=== PATIENT | female | born 1975 | race Caucasian/White ===

== ENCOUNTER 2019-11-06 09:45 | Outpatient (CLI) | payer BC, SELFPAY ==
--- NOTE | ~2019-11-06 | XR_ITS ---
EXAMINATION: XR chest 2V DATE: 11/06/2019 10:03 INDICATION: One month of cough without fever. TECHNIQUE: PA and lateral views of the chest were obtained. COMPARISON: Chest radiograph dated 05/10/2014 FINDINGS: The lungs remain clear with no focal airspace opacities, pulmonary edema, pleural effusion or pneumot horax. The cardiomediastinal silhouette is normal. Mild thoracic spondylosis. IMPRESSION: 1. No acute cardiopulmonary disease. Reviewed, dictated and finalized at location A.
== END 2019-11-06 09:46 | disposition home or self-care (01) ==
LOC: ANHIMG 09:49
PROVIDERS: PCP Internal Medicine; Visit Provider Nurse Practitioner
DX: R05 Cough (principal)
CPT/HCPCS: 71046

== ENCOUNTER → 2020-07-11 15:25 | Outpatient (CLI) | payer BC, SELFPAY ==
--- NOTE | ~2020-07-11 | MM_ITS ---
EXAMINATION: MM screening [facility] BI w thai HISTORY: Screening mammogram TECHNIQUE: Craniocaudal and mediolateral oblique 3-D tomosynthesis images were obtained and synthetic 2-D images were generated. CAD analysis was submitted and interpreted. COMPARISON: 12/18/2018, 11/20/2017, 09/06/2016 bilateral digital screening mammogram examinations BREAST PARENCHYMAL COMPOSITION: The breasts are heterogeneously dense, which may obscure small masses . FINDINGS: There is no evidence of suspicious mass, calcification, or architectural distortion to sugg est malignancy in either breast. There has been no suspicious interval change. IMPRESSION: 1. No mammographic evidence of malignancy. 2. Recommend routine screening mammography in one year. BI-RADS Category 1: Negative Reviewed, dictated and finalized at location A. CE CLINICIAN
== END ==
PROVIDERS: PCP Internal Medicine; Visit Provider Obstetrics & Gynecology
DX: Z12.31 Encounter for screening mammogram for malignant neoplasm of breast (principal)
CPT/HCPCS: 77063; 77067

== ENCOUNTER 2021-01-13 13:36 | Emergency (ER) | payer BC, SELFPAY ==
--- NOTE | ~2021-01-13 | XR_ITS ---
EXAMINATION: XR sternum min 2V DATE: 01/13/2021 14:11 INDICATION: Chest injury. TECHNIQUE: 2 views of the sternum were obtained. COMPARISON: Chest 2 views 11/06/2019 FINDINGS: Bone alignment is normal. No fracture. IMPRESSION: 1. No fracture. Reviewed, dictated and finalized at location A. IMPRESSION: 1. No fracture.
--- NOTE | ~2021-01-13 | XR_ITS ---
EXAMINATION: XR scapula RT DATE: 01/13/2021 14:11 INDICATION: Chest injury. TECHNIQUE: 2 views of right scapula were obtained. COMPARISON: None. FINDINGS: Bone alignment is normal. No fracture. There is mild osteoarthritis of acromioclavicular jennie int. IMPRESSION: 1. No fracture. Reviewed, dictated and finalized at location A. IMPRESSION: 1. No fracture.
[2021-01-13 13:40] VITALS: BP 109/72; PULSE 92; RESP 16; TEMP 36.9; O2SAT 99
[2021-01-13] MEDS: TETANUS,DIPHTHERIA,AC PERTUSSIS ADULT (0.5 ML) BOOSTRIX IM (14:08)
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
== END 2021-01-13 14:40 | disposition home or self-care (01) ==
PROVIDERS: Emergency Provider Nurse Practitioner; PCP Internal Medicine
DX: S00.511A Abrasion of lip, initial encounter (principal); S40.211A Abrasion of right shoulder, initial encounter; S80.811A Abrasion, right lower leg, initial encounter; V00.831A Fall from motorized mobility scooter, initial encounter; S29.9XXA Unspecified injury of thorax, initial encounter; S49.91XA Unspecified injury of right shoulder and upper arm, initial encounter; Z23 Encounter for immunization; Z87.891 Personal history of nicotine dependence; F41.9 Anxiety disorder, unspecified; F32.9 Major depressive disorder, single episode, unspecified; I10 Essential (primary) hypertension
CPT/HCPCS: 71120; 73010; 90471; 90715; 99213; G0463

== ENCOUNTER → 2021-02-17 15:19 | Outpatient (CLI) | payer BC, SELFPAY ==
--- NOTE | ~2021-02-17 | US_ITS ---
EXAMINATION: US soft tissue chest EXAM DATE: 02/17/2021 15:41 INDICATION: R22.9 - Localized swelling, mass and lump, unspecified. TECHNIQUE: Multiple grayscale and Doppler images of the right parasternal palpable abnormality were o btained (by a technologist who performed the scan) and subsequently reviewed. Correlation is made to sternal x-ray 01/13/2021. FINDINGS: Scanning in the area of concern demonstrated normal appearing subcutaneous fat, several ribs and unre markable intercostal muscles between them. No sonographic abnormality was identified. IMPRESSION: Unremarkable ultrasound exam. Reviewed, dictated and finalized at location B.
== END ==
PROVIDERS: PCP Nurse Practitioner; Visit Provider Nurse Practitioner
DX: R22.9 Localized swelling, mass and lump, unspecified (principal)
CPT/HCPCS: 76604

== ENCOUNTER → 2022-01-17 11:34 | Outpatient (CLI) | payer BC, SELFPAY ==
--- NOTE | ~2022-01-17 | MM_ITS ---
EXAMINATION: MM screening [facility] BI w thai HISTORY: Screening mammogram TECHNIQUE: Craniocaudal and mediolateral oblique 3-D tomosynthesis images were obtained and synthetic 2-D images were generated. CAD analysis was submitted and interpreted. COMPARISON: 07/11/2020, 12/18/2018, 11/20/2017 BREAST PARENCHYMAL COMPOSITION: The breasts are heterogeneously dense, which may obscure small masses . FINDINGS: There is no suspicious mass, calcification, or architectural distortion to suggest malignan cy in either breast. There has been no suspicious interval change. IMPRESSION: 1. No mammographic evidence of malignancy. 2. Recommend routine screening mammography in one year. BI-RADS Category 1: Negative Reviewed, dictated and finalized at location A.
== END ==
PROVIDERS: PCP Nurse Practitioner Family; Visit Provider Obstetrics & Gynecology
DX: Z12.31 Encounter for screening mammogram for malignant neoplasm of breast (principal)
CPT/HCPCS: 77063; 77067

== ENCOUNTER 2023-05-23 19:15 | Emergency (ER) | payer OTHER, SELFPAY ==
--- NOTE | ~2023-05-23 | XR_ITS ---
EXAMINATION: XR chest 2V 05/23/2023 19:56 INDICATION: Chest pain PROCEDURE: 2 view chest COMPARISON: 11/06/2019 FINDINGS: The lungs are clear. The cardiomediastinal silhouette is within normal limits. There are no pleural effusions. There is no pneumothorax suspected. There are healed right upper rib fracture s. IMPRESSION: 1: NO ACUTE CARDIOPULMONARY DISEASE. Reviewed, dictated and finalized at location A.
--- NOTE | 2023-05-23 19:16 | ECG_ITS ---
Measurements Intervals [place] Rate: 84 P: 28 ME: 162 QRS: -22 QRSD: 85 T: 43 QT: 340 QTc: 404 Interpretive Statements SINUS RHYTHM POOR R-WAVE PROGRESSION LEFTWARD AXIS ABNORMAL ECG NO PREVIOUS ECG AVAILABLE FOR COMPARISON Electronically Signed On 05-24-2023 7:26:27 CDT by Candelario Oliva M.D.
[2023-05-23 19:20] VITALS: BP 121/88; PULSE 87; RESP 16; TEMP 37; O2SAT 98
[2023-05-23 20:11] LABS: Basophils Percent Auto 0.5 % (0.2-1.2); Eosinophils Absolute Auto 0.3 K/mm3 (0-0.3); Eosinophils Percent Auto 3.5 % (0-4.4); Hematocrit 31.9 % (37.0-47.0); Hemoglobin 10.6 g/dL (12.0-15.0); Immature Granulocyte Absolute 0.04 K/mm3 (0.00-0.031); Immature Granulocyte Percent A 0.5 % (0-0.5); Lymphocytes Absolute Auto 1.83 K/mm3 (0.9-3.2); Lymphocytes Percent Auto 22.3 % (18.3-44.2); Mean Corpuscular HGB Conc 33.2 g/dl (32-36); Mean Corpuscular Hemoglobin 30.2 pg (26-34); Mean Corpuscular Volume 90.9 fl (80-100); Mean Platelet Volume 10.3 fl (7.4-10.4); Monocytes Absolute Auto 0.6 K/mm3 (0.1-0.6); Monocytes Percent Auto 6.8 % (2.6-8.5); Neutrophils Absolute Auto 5.5 K/mm3 (1.3-6.7); Neutrophils Percent Auto 66.4 % (45.5-73.1); Platelet Count Result 281 k/mm3 (150-375); Red Blood Count 3.51 M/mm3 (4.2-5.4); Red Cell Distribution Width 13.2 % (11.5-14.5); White Blood Count 8.2 K/mm3 (4.5-10.0)
[2023-05-23 20:20] LABS: Alanine Aminotransferase 20 U/L (6-35); Alkaline Phosphatase 87 U/L (38-126); Anion Gap 6 mmol/L (8-16); Aspartate Amino Transferase 25 U/L (14-36); Bilirubin,Total 0.3 mg/dL (0.2-1.3); Blood Urea Nitrogen 16 mg/dL (7-17); Calcium 8.7 mg/dL (8.4-10.2); Carbon Dioxide 29 mmol/L (22-30); Chloride 103 mmol/L (98-107); Estimated CRCL calculation 92 ml/min; Estimated Glomerular Filt Rate > 60; Glucose 122 mg/dL (65-110); Lipase 79 U/L (23-300); Potassium 3.9 mmol/L (3.4-5.0); Sodium 138 mmol/L (137-145)
[2023-05-23 20:21] LABS: Prothrombin Time 13.7 Seconds (11.1-14.7)
[2023-05-23 20:22] LABS: Partial Thromboplastin Time 26.6 SECONDS (22.3-36.8)
[2023-05-23 20:32] LABS: Troponin I < 0.012 ng/mL (0.000-0.034)
[2023-05-23 23:38] VITALS: BP 131/95; PULSE 65; RESP 18; O2SAT 99
[2023-05-24 02:18] LABS: Troponin I < 0.012 ng/mL (0.000-0.034)
--- NOTE | 2023-05-24 02:21 | ED.GENADULT ---
HPI - General Adult General Chief complaint: Chest Pain Stated complaint: chest pain Time Seen by Provider: 05/24/23 01:28 History of Present Illness HPI narrative: Patient is a 48-year-old female who presents the emergency department with chief complaint of chest pain and dizziness. Patient reports this afternoon around 3 PM he started having a bowel movement and then felt dizzy got diaphoretic and had discomfort in her chest. Patient states she talked her primary care provider regarding having the emergency department for evaluation patient states she felt a little better decided to wait and then came to the emergency department after she had some more discomfort in her chest. Patient states her pain is improved significantly and now just has very minimal discomfort in her chest. Related Data Home Medications Medication Instructions Recorded Confirmed multivitamin 1 tablet PO DAILY 08/03/19 07/02/22 brexpiprazole 3 mg tablet (Rexulti) 3 mg PO DAILY 07/02/22 07/02/22 cholecalciferol (vitamin D3) 1,250 1,250 mcg PO WEEKLY 07/02/22 07/02/22 mcg (50,000 unit) capsule Allergies Allergy/AdvReac Type Severity Reaction Status Date / Time Penicillins Allergy Unknown Unknown Verified 07/02/22 11:12 Review of Systems Review of Systems: A 10 system review of systems was completed on the patient and is negative except for what is stated in the HPI. Nursing and ancillary documentation was reviewed. PMFSH Past Medical History Medical History Alcohol abuse Anxiety Depression Hematochezia Hypertension Surgical History Surgical History History of endometrial ablation Hx of foot surgery Right foot Hx of tubal ligation Family History Family History Father Family history of blood dyscrasia Hypertension Hyperlipidemia FH: prostate cancer Mother Hypertension Hyperthyroidism Social History Social History Smoking status: Former smoker Second hand tobacco smoke exposure: No Smoking end date: 08/12/02 Alcohol intake: current Alcohol use details: Pt drinks bi-weekly. Exam Narrative: GENERAL: Well-appearing, well-nourished, and in no acute distress. HEAD: Normocephalic, atraumatic. EYES: PERRLA and EOMI. ENT: Nares clear, no rhinorrhea or epistaxis. Mucous membranes moist. NECK: Supple. CHEST: Clear to auscultation. No respiratory distress. HEART: Regular rate and rhythm. No murmur heard. Normal peripheral pulses. ABDOMEN: Soft, nontender, nondistended, normal active bowel sounds. EXTREMITIES: Normal range of motion. No edema. SKIN: Warm, dry, no rash. NEURO: No focal deficits. Alert and oriented x3. PSYCH: Normal mood and affect. Course Course Emergency Course: Differential diagnose includes ACS, atypical chest pain, EKG normal sinus rhythm of [address] or ST depression Chest x-ray showed no focal infiltrate Laboratory studies were obtained CBC was within normal limits CMP was within normal limits 0-hour and repeat troponin were negative Vital Signs Vital signs: Vital Signs Temperature 37.0 C 05/23/23 19:20 Pulse Rate 87 05/23/23 19:20 Respiratory Rate 16 05/23/23 19:20 Blood Pressure 121/88 05/23/23 19:20 Pulse Oximetry 98 05/23/23 19:20 Oxygen Delivery Room Air 05/23/23 19:20 Temperature 37.0 C 05/23/23 19:20 Pulse Rate 65 05/23/23 23:38 Respiratory Rate 18 05/23/23 23:38 Blood Pressure 131/95 H 05/23/23 23:38 Pulse Oximetry 99 05/23/23 23:38 Oxygen Delivery Room Air 05/23/23 19:20 Medical Decision Making [facility] Narrative Medical decision making narrative: Differential diagnosis ACS, atypical chest pain, chest wall pain, Laboratory studies remain elevated
[2023-05-24 03:51] VITALS: BP 135/79; PULSE 63; RESP 15; O2SAT 100
== END 2023-05-24 03:52 | disposition home or self-care (01) ==
PROVIDERS: Emergency Provider Emergency Medicine; PCP Nurse Practitioner Family
DX: R07.89 Other chest pain (principal); I10 Essential (primary) hypertension; F41.9 Anxiety disorder, unspecified; F32.A Depression, unspecified; Z87.891 Personal history of nicotine dependence; R94.31 Abnormal electrocardiogram [ECG] [EKG]
CPT/HCPCS: 36415; 71046; 80053; 83690; 84484; 85025; 85610; 85730; 93005; 99284

== ENCOUNTER 2023-11-20 15:35 | Outpatient (CLI) | payer OTHER, SELFPAY ==
--- NOTE | ~2023-11-20 | XR_ITS ---
XR chest 2V 11/20/2023 15:43 Indication: Cough for 2 weeks Procedure: 2 view chest Comparison: No prior studies for comparison. Findings: Heart size normal. No focal air space disease, pulmonary edema, pleural effusion or suspect ed pneumothorax. There are healed right fourth, fifth and sixth rib fractures. Impression: 1: No acute cardiopulmonary disease. Reviewed, dictated and finalized at location A. Impression: 1: No acute cardiopulmonary disease.
== END 2023-11-20 15:36 ==
PROVIDERS: PCP Physician Assistant; Visit Provider Physician Assistant
DX: R05.9 Cough, unspecified (principal)
CPT/HCPCS: 71046

== ENCOUNTER 2024-02-17 08:25 | Outpatient (CLI) | payer BC, SELFPAY ==
--- NOTE | 2024-02-17 13:24 | WPDPFTINT ---
PFT Procedure Performed PFT Procedure Performed Spirometry with Pre/Post Bronchodilator Plethysmography (Lung Vol) Diffusing Cap (DLCO) Flow Vol Loop PFT Interpretation This is a pulmonary function test with pre and post-bronchodilator spirometry, plethysmography and diffusing capacity. The test was performed and results interpreted in accordance with the 2019 and 2005 ATS/ERS Task Force guidelines respectively using the Global Lung Function Initiative-2012 reference equations. Patient demonstrated good effort and cooperation. Reproducibility criteria were met. The quality of the pre bronchodilator spirometry maneuver was Grade B and post bronchodilator spirometry maneuver was Grade A. Findings: Spirometry: the contour of the inspiratory and expiratory flow tracing demonstrate a sawtooth pattern. Otherwise the contour the inspiratory and expiratory flow tracing are normal. The pre bronchodilator FVC is 3.31 L, 93% predicted. The pre bronchodilator FEV1 is 2.62 L, 92% predicted. The FEV1: FVC ratio 79%. The post bronchodilator FVC is 3.79 L, representing a 14% increase. The post bronchodilator FEV1 is 2.94 L, representing a 13% increase. The post bronchodilator FEV1: FVC ratio 78%. Plethysmography: The total lung capacity is 3.86 L, 74% predicted. The functional residual capacity is 1.26 L, 43% predicted. The residual volume is 0.54 L, 30% predicted. Diffusing capacity: The diffusing capacity unadjusted for hemoglobin and carboxyhemoglobin is 18.7, 81% predicted. The diffusing capacity adjusted for alveolar volume is 3.74, 82% predicted. Impression: The contour the expiratory flow tracing demonstrates a reproducible oscillating or sawtooth pattern. This is usually generated by air flow disturbances in the upper airway are from tremors of the respiratory muscles. This has been associated with sleep apnea, obesity, snorers without obstructive sleep apnea, upper airway injury, upper airway stenosis, tracheobronchomalacia, neuromuscular disorders with bulbar involvement, burn injury of the upper airway, diaphragmatic myoclonus, and herpes zoster of abdominal muscles. The contour the inspiratory flow tracing demonstrates a reproducible oscillating or sawtooth pattern. This has been associated with upper airway obstruction and upper airway collapsibility. There is a mild restrictive ventilatory abnormality with a normal FEV1. The spirometry is normal without evidence of an obstructive abnormality. There is significant improvement after inhaling a single dose of albuterol. The diffusing capacity is normal.
== END 2024-02-17 08:26 | disposition home or self-care (01) ==
LOC: ANHPFT 08:29
PROVIDERS: PCP Physician Assistant; Visit Provider Nurse Practitioner Family
DX: R06.00 Dyspnea, unspecified (principal); R94.2 Abnormal results of pulmonary function studies
CPT/HCPCS: 94060; 94726; 94729

== ENCOUNTER 2024-08-02 09:17 | Emergency (ER) | payer BC, SELFPAY ==
--- NOTE | ~2024-08-02 | XR_ITS ---
EXAMINATION: XR chest 2V DATE: 08/02/2024 10:42 INDICATION: Cough. TECHNIQUE: Frontal and lateral views of the chest were obtained. COMPARISON: Chest 2 views 11/20/2023 FINDINGS: There is no pneumonia, pleural effusion, or pneumothorax. The heart size is normal. There a re old healed right rib fractures. IMPRESSION: 1. No acute cardiopulmonary disease. Reviewed, dictated and finalized at location A. OOER
[2024-08-02 09:42] VITALS: BP 104/85; PULSE 84; RESP 16; TEMP 36.5; O2SAT 100
--- NOTE | 2024-08-02 10:31 | ED_ITS ---
HPI - General Adult General Chief complaint: Upper Respiratory Infection Stated complaint: Cough Source: patient Mode of arrival: ambulatory Limitations: no limitations History of Present Illness HPI narrative: Patient presents for evaluation of sick symptoms. Her primary concern is a cough that she has had for several weeks. She called primary care provider 6 days ago was started on cefdinir and prednisone. She finished her prednisone two days ago and is almost done with cefdinir. She had a fever. She also reports SOB and feels run down . No nausea, vomiting or diarrhea. 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 She has an underlying history of asthma. Related Data Home Medications ?Medication ?Instructions ?Recorded ?Confirmed ?Last Taken ?Type multivitamin 1 tablet PO DAILY 08/03/19 02/06/24 Unknown History bupropion HCl 300 mg 24 hr tablet, 300 mg PO DAILY 02/06/24 02/06/24 Unknown History extended release meloxicam 15 mg tablet 15 mg PO DAILY PRN 02/06/24 02/06/24 Unknown History azelastine 137 mcg (0.1 %) nasal intranasal 08/02/24 Unknown History spray bupropion HCl 150 mg 24 hr tablet, mg PO 08/02/24 Unknown History extended release cefdinir 300 mg capsule mg 08/02/24 Unknown History prednisone 20 mg tablet mg 08/02/24 Unknown History rosuvastatin 10 mg tablet mg 08/02/24 Unknown History tirzepatide 2.5 mg/0.5 mL mg subcut 08/02/24 Unknown History subcutaneous pen injector (Mounjaro) tirzepatide 5 mg/0.5 mL mg subcut 08/02/24 Unknown History subcutaneous pen injector (Mounjaro) Allergies Allergy/AdvReac Type Severity Reaction Status Date / Time Penicillins Allergy Unknown Unknown Verified 08/02/24 09:50 Review of Systems Review of Systems: CONSTITUTIONAL: Reports recent fever and feeling run down , none currently. Denies chills, or sweats. EYES: Denies visual changes, redness, or discharge. ENT: Denies rhinorrhea, congestion, sore throat, or otalgia. CARDIOVASCULAR: Denies chest pain, palpitations, or edema. RESPIRATORY: Reports cough and SOB. GASTROINTESTINAL: Denies abdominal pain, nausea, vomiting, or diarrhea. GENITOURINARY: Denies dysuria or hematuria. SKIN: Denies rash or itching. MUSCULOSKELETAL: Denies back pain, joint pain, or myalgia. NEUROLOGIC: Denies headache, numbness, dizziness, or weakness. PSYCHIATRIC: Denies anxiety or depression. [facility] Past Medical History Medical History Anxiety Alcohol abuse Hypertension Depression Hematochezia Surgical History Surgical History History of endometrial ablation Hx of tubal ligation Hx of foot surgery Right foot Family History Family History Father Family history of blood dyscrasia Hypertension Hyperlipidemia FH: prostate cancer Mother Hypertension Hyperthyroidism Social History Social History Smoking packs per day: 1 Smoking cigarettes per day: 20.0 Years smoked: 14 Smoking pack-years: 14.00 Smoking status: Former smoker Second hand tobacco smoke exposure: No Smoking end date: 08/12/02 Alcohol intake: current Alcohol use details: Pt drinks bi-weekly. 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 HEAD: Normocephalic, atraumatic. EYES: PERRLA and EOMI. ENT: Nares clear, no rhinorrhea or epistaxis. Mucous membranes moist. Oropharynx without tonsillar hypertrophy exudate or other lesions. Bilateral TMs pearly schwab nonbulging NECK: Supple. No adenopathy or masses. No carotid bruits or JVD CHEST: Clear to auscultation. No respiratory distress. No wheezes rales or rhonchi HEART: Regular rate and rhythm. No murmur heard. Normal peripheral pulses. ABDOMEN: Soft, nontender, nondistended, normal active bowel sounds. EXTREMITIES: Normal range of motion. No edema. SKIN: Warm, dry, no rash. NEURO: No focal deficits. Alert and oriented x3. PSYCH: Normal mood and affect. Course Course Emergency Course: This is a 49-year-old female who presented for evaluation of a cough for several weeks. Symptoms not improving with cefdinir. Although her chest x-ray was negative, clinically concerned she has pneumonia. Will add azithromycin. Finished cefdinir. Increase hydration. Pomi-oic-[id number] agents for symptom management. Follow up with primary provider. Go to the ER for worsening symptoms. Patient in agreement plan of care. Level of Care: Express Care Visit Vital Signs Vital signs: Vital Signs Oxygen Delivery Room Air 08/02/24 09:40 Temperature 36.5 C 08/02/24 09:42 Pulse Rate 84 08/02/24 09:42 Respiratory Rate 16 08/02/24 09:42 Blood Pressure 104/85 08/02/24 09:42 Pulse Oximetry 100 08/02/24 09:42 Oxygen Delivery Room Air 08/02/24 09:40 Medical Decision Making Vital Signs Vital Signs: Vital Signs Oxygen Delivery Room Air 08/02/24 09:40 Temperature 36.5 C 08/02/24 09:42 Pulse Rate 84 08/02/24 09:42 Respiratory Rate 16 08/02/24 09:42 Blood Pressure 104/85 08/02/24 09:42 Pulse Oximetry 100 08/02/24 09:42 Oxygen Delivery Room Air 08/02/24 09:40 Imaging Data Radiologist's impression: EXAMINATION: XR chest 2V DATE: 08/02/2024 10:42 INDICATION: Cough. TECHNIQUE: Frontal and lateral views of the chest were obtained. COMPARISON: Chest 2 views 11/20/2023 FINDINGS: There is no pneumonia, pleural effusion, or pneumothorax. The heart size is normal. There are old healed right rib fractures. IMPRESSION: 1. No acute cardiopulmonary disease Discharge Plan Discharge Clinical Impression: Community acquired pneumonia Patient Disposition: Home, Self-Care Condition: Stable Instructions: Antibiotic Form, Community Acquired Pneumonia (DC) Additional Instructions: Please complete course of cefdinir Start azithromycin and take as directed Patient Language: Jamaican Prescriptions: New azithromycin 250 mg tablet See Rx Instructions .ROUTE .COMPLEX Qty: 6 0RF Rx Instructions: For 250 mg dose pack: take 500 mg today (day 1), then 250 mg for 4 days (days 2-5) No Action prednisone 20 mg tablet azelastine 137 mcg (0.1 %) spray,non-aerosol INTRANASAL cefdinir 300 mg capsule rosuvastatin 10 mg tablet bupropion HCl 150 mg tablet extended release 24 hr PO Mounjaro 2.5 mg/0.5 mL pen injector SUBCUT Mounjaro 5 mg/0.5 mL pen injector SUBCUT multivitamin Tablet 1 tablet PO DAILY bupropion HCl 300 mg tablet extended release 24 hr 300 mg PO DAILY meloxicam 15 mg tablet 15 mg PO DAILY PRN lisinopril-hydrochlorothiazide 10-12.5 mg tablet 1 tablet PO DAILY Qty: 90 0RF sertraline 100 mg tablet 200 mg PO DAILY Qty: 180 1RF albuterol sulfate 90 mcg/actuation HFA aerosol inhaler 1 - 2 inh inhalation Q4-6H PRN (Reason: shortness of breath or wheezing) 90 Days Qty: 25.5 1RF Pulmicort Flexhaler 180 mcg/actuation aerosol powdr breath activated 1 inh inhalation BID Qty: 3 1RF Rx Instructions: Rinse mouth and spit after each use Follow-up/Referrals: Catalina,DEVI Valero [Primary Care Provider] - Time of Disposition: 11:03
== END 2024-08-02 11:11 | disposition home or self-care (01) ==
PROVIDERS: Emergency Provider Nurse Practitioner; PCP Physician Assistant
DX: J18.9 Pneumonia, unspecified organism (principal); Z87.891 Personal history of nicotine dependence; I10 Essential (primary) hypertension; J45.909 Unspecified asthma, uncomplicated; F41.9 Anxiety disorder, unspecified; F32.A Depression, unspecified
CPT/HCPCS: 71046; 99213; G0463

== ENCOUNTER 2024-08-13 11:03 | Outpatient (CLI) | payer BC, SELFPAY ==
--- NOTE | ~2024-08-13 | XR_ITS ---
EXAMINATION: XR chest 2V 08/13/2024 11:19 INDICATION: Persistent cough PROCEDURE: 2 view chest COMPARISON: Comparison to multiple prior studies sequentially, with oldest reviewed study dated . FINDINGS: The lungs are clear. The cardiomediastinal silhouette is within normal limits. There are no pleural effusions. There is no pneumothorax suspected. There are healed right upper rib fracture s. IMPRESSION: 1: NO ACUTE CARDIOPULMONARY DISEASE. Reviewed, dictated and finalized at location A. FOLDER
== END 2024-08-13 11:04 | disposition home or self-care (01) ==
PROVIDERS: PCP Physician Assistant; Visit Provider Nurse Practitioner Family
DX: R05.9 Cough, unspecified (principal); R06.00 Dyspnea, unspecified
CPT/HCPCS: 71046

== ENCOUNTER 2024-09-26 19:15 | Emergency (ER) | payer BC, SELFPAY ==
--- NOTE | ~2024-09-26 | CT_ITS ---
CT soft tissue neck w con Ordering provider: Andres Mcmahan PA-C History: 49 years Female with . R jaw pain and swelling, s/p root canal . Comparison: None. Technique: CT soft tissues neck was performed with contrast. . The dose-length product was 531.15 mGy -cm. Findings: LOWER HEAD: The visualized brain parenchyma, optic globes/orbits and mastoids are normal. The visua lized paranasal sinuses are well aerated. SALIVARY GLANDS: The left-sided submandibular gland is unremarkable.. Asymmetric inflammatory change anterior and lateral to the right submandibular gland. The bilateral parotid glands are symmetric and unremarkable. THYROID: Unremarkable SUPRAHYOID DEEP SPACES: Normal. CAROTID ARTERIES: Normal. JUGULAR VEINS: Normal. TONSILS: Normal. ORAL CAVITY: Partially obscured by dental amalgam but unremarkable as visualized. PHARYNX, LARYNX AND TRACHEA: Patent and normal. No prevertebral soft tissue swelling. SUPERFICIAL SOFT TISSUES: Prominent right submental lymph node without pathologic enlargement. Promin ent right submandibular lymph node is also noted, without suspicious morphology or pathologic enlarge ment. THORACIC INLET/VISUALIZED UPPER CHEST: Unremarkable. SKELETAL: Age appropriate degenerative changes. IMPRESSION: 1. Trace asymmetric inflammatory change anterior and lateral to the right submandibular gland with p rominent surrounding lymph nodes without pathologic enlargement or suspicious morphology. 2. No rim-enhancing fluid collection is present. Reviewed, dictated and finalized at location A. CISE INSTRUCT IMPRESSION: 1. Trace asymmetric inflammatory change anterior and lateral to the right subm andibular gland with prominent surrounding lymph nodes without pathologic enlar gement or suspicious morphology. 2. No rim-enhancing fluid collection is present.
[2024-09-26 19:18] VITALS: BP 125/85; PULSE 102; RESP 17; TEMP 36.6; O2SAT 98
--- OUTSIDE RECORDS SUMMARY | 2024-09-26 19:18 | XMS_ITS | Data Portability ---
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 illness RTC 4 months She voices understanding of plan and agrees [email or web address] Not available 11/14/2022 16:49:30 04/24/2023 04/24/2023 [facility] 02/2019-normal- at [place], repeat - 02/2029 [facility] 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 office if worse, ER if life threatening illness RTC 6 months and PRN She voices understanding of plan and agrees [email or web address] Not available 04/24/2023 17:08:00 05/29/2023 05/29/2023 [facility] 02/2019-normal- at [place], repeat - 02/2029 [facility] 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 Lab HbA1c (hemoglobin A1c), blood 2022 023 [email or web address] [facility], [address] [facility], [place], [address], 3 11:01:51 urinalysis complete, reflex culture 2022 023 SOO [facility], [address], [place], [address], 3 09:47:13 CBC w/ auto diff 2022 023 SOO [facility], [address], [place], [address], 3 09:47:13 CMP, serum or plasma 2022 023 SOO [facility], [address], [place], [address], 3 09:47:13 lipid panel, serum 2022 023 SOO [facility], [address], [place], [address], 3 09:47:14 TSH, ultra-sensi tive, serum 2022 [email or web address], [address], [place], [address], 11:01:51 Referral None recorded. Procedures None recorded. Surgeries None recorded. Imaging None recorded. Medication Orders lisinopril 10 mg-hydrochl orothiazide 12.5 mg tablet 2022 023 [facility], [facility], [place], [address], 16:26:37 Ozempic 0.25 mg or 0.5 mg (2 mg/3 mL) subcutaneou s pen injector [address] [facility], [facility], [place], [address], 3 16:09:44 lisinopril 10 mg-hydrochl orothiazide 12.5 mg tablet 2022 023 [facility], [facility], [place], [address], 16:44:03 Patient TargetsNo targets recorded. Patient InstructionsNo instructions recorded. Reason for Referral None Reported. Results Created Date Observation Date Name Description Value Unit Range Abnormal Flag Note LastModifiedBy Organization Detail LastModifiedTime 05/16/2005/15/2022 audio gram + tympa nogra m No observ ation record ed. [id number] [facility] [address] [facility], [place], [address], 10/11/2022 00:40:12 05/21/20 22 05/15/2022 audio gram + tympa nogra m No observ ation record ed. [id number].[id number] [facility] [place], [address] Floor, [place], [address], 10/11/2022 00:40:12 05/28/20 MRI, inter nal audit ory canal , w/wo contr ast [facility] [address] [address] Patien t Name: KATIE VÁZQUEZ Access ion #: [id number] Sex: F : 1974 0 Locati on: RA2 Attend ing Physic zurdo: YOANA CHRISTINE Orderi Physic zurdo: YOANA CHRISTINE Exam Date: 2021 12:36 PM Exam Name: MRI IACS W/WO Admitt ing Diagno sis(es ): RADIOL OGY REPORT - FINAL EXAM: MRI IACS W/WO HISTOR Y: asymme trical sensor ineura l hearin g loss COMPAR MANUEL: None availa ble. TECHNI QUE: DOSE: 19.0ml Multih ance gadoli nium Multip lanar multis equenc e pre and post IV contra st images of the IACs were perfor med. FINDIN GS: No eviden ce of mass in the cerebe llopon donte angle cister ns or advisory internship al audito ry canals . The fifth, sevent h, and eighth crania l nerves are symmet hilton withou t abnorm al thicke damion. The cochle a and vestib ular aquedu cts appear Page 1 of 2 [facility] [place] Patien t Name: KATIE VÁZQUEZ Access ion #: [id number] Sex: F : 1974 0 Exam Date: 2021 12:36 PM Exam Name: MRI IACS W/WO Admitt ing Diagno sis(es ): normal and symmet hilton. No eviden ce of fluid or abnorm al signal in the middle ear spaces , mastoi d air cells, or territory service representative al audito ry canals . IMPRES FAHEEM: Unrema rkable pre and post IV contra st MRI of the IACs. Create d and electr onical ly signed by: Bhupinder oconnor MD Signed Date: 2021 2:06 PM (CT) Dictat ed by: Bhupinder oconnor MD DD: 2021 2:06 PM (CT) DT: 2021 2:06 PM (CT) Page 2 of 2 [id number].[id number] [facility] (Imaging) [address] [place], [address], 10/11/2022 00:40:12 05/28/20 22 05/28/2022 MRI, inter nal audit ory canal , w/wo contr ast No observ ation record ed. MIGRATION. [place] [facility] [address] [place] [address] [place], [address], 10/11/2022 00:40:12 06/05/20 22 05/28/2022 MRI, inter nal audit ory canal , w/wo contr ast No observ ation record ed. MIGRATION. [facility] [address] [place] [address] [place], [address], 10/11/2022 00:40:12 05/23/20 23 05/23/2023 XR, chest , 2 view No observ ation record ed. [address], [place], [address], 05/27/2023 10:00:00 06/27/20 23 06/27/2023 US, duple x, renal arter y No observ ation record ed. [address] [facility] [address], [place], [address], 06/28/2023 11:47:59 07/03/20 23 06/27/2023 home sleep study No observ ation record ed. [address] [facility] [address], [place], [address], 07/08/2023 12:14:00 07/15/20 23 07/09/2023 exerc ise stres s test No observ ation record ed. [address] [facility] [address], [place], [address], 07/16/2023 12:25:57 08/07/20 23 08/07/2023 US, echoc ardio gram No observ ation record ed. [address] [facility] [address], [place], [address], 08/08/2023 09:54:38 08/13/19 24 08/07/2023 CT, coron surekha calci um score No observ ation record ed. [address] [facility] [address], [place], [address], 08/14/2023 16:44:56 Result Notes None recorded. Problems Name Problem SNOMED Code Status Onset Date Resolution Date Notes Provider Name and Address Organization Details Recorded Time Rectal hemorrhage 89882587 Active 2021 Not Available [facility] 3 00:37:13 Ringing in ear 059747950 Active 2021 Not Available [facility] 3 00:37:13 Asymmetric al sensorineu ral hearing loss 442572668 Active 2021 Not Available [facility] 3 00:37:13 Bilateral tinnitus 9546089277706 Active 2021 Not Available [facility] 3 00:37:13 Tinnitus of left ear 4936655997819 Active 2021 Not Available [facility] 3 00:37:14 Prediabete s 894106027 Active 2021 Not Available [facility] 3 00:37:14 Essential hypertensi on 41110179 Active 2022 REAGAN [facility] [address], [address], [place], [address] , [facility] 3 20:13:01 Major depressive disorder 124589097 Active 2022 REAGAN [facility] [address], [address], [place], [address] , [facility] 3 20:13:12 Hyperlipid emia 85712513 Active 2022 JULIO CESAR [facility] [address], [address], [place], [address] , [facility] 3 20:13:17 Obesity 851721631 Active 2022 REAGAN [facility] [address], [address], [place], [address] , [facility] [place] [facility] 3 20:13:21 Insomnia 914684452 Active 2022 REAGAN [facility] [address], [address], [place], [address] , [facility] 3 20:14:20 Pain of ear 799355604 Active 2022 Sue combs, [place] [facility] [place] [facility] 3 14:58:50 Chest pain 00117853 Active 2022 Sue combs, [place] [facility] [place] [facility] 3 15:52:31 Anxiety 63873368 Active [address] [facility], [address] [address], [place], [address] , [facility] 3 12:09:38 Acute serous otitis media of right ear 9148560449169 105 Active [address] [facility], [address] [address], [place], [address] , [facility] 3 12:10:55 Acute right otitis media 218616314 Active 2022 Sue Mcdowell null, [facility] 3 15:03:15 Anemia 262622444 Active 2023 Hillary García RMA null, [facility] 4 14:49:48 Upper respirator y infection 94383428 Active 2023 LILLIE Plummer [address], [address] , [facility] 4 16:18:28 Problem Notes None recorded. Procedures Surgical History Date Name Laterality Status Provider Name and Address Organization Details Recorded Time Ablation completed Not Available [facility] 00:35:01 Foot Surgery completed Not Available [facility] 10/11/2022 00:35:01 Imaging Results Imaging Date Name Status LastModified by Organization Details LastModified Time 05/28/2022 MRI, internal auditory canal, w/wo contrast completed [id number] [facility] (Im[facility]) [address] [place], [address], 10/11/2022 00:40:12 05/28/2022 MRI, internal auditory canal, w/wo contrast completed MIGRATION.[id number] [address], [place], [address], 10/11/2022 00:40:12 05/28/2022 MRI, internal auditory canal, w/wo contrast completed [id number] 4822 [place] [facility] [address], [place], [address], 10/11/2022 00:40:12 05/15/2022 audiogram + tympanogram completed MIGRATION.[id number] 0236 [facility] [place] [address] Floor, [place], [address], 10/11/2022 00:40:12 05/15/2022 audiogram + tympanogram completed MIGRATION.[id number] 3445 [facility] [address] [facility] [address], [place], [address], 10/11/2022 00:40:12 05/23/2023 XR, chest, 2 view completed [address] [facility] [address], [place], [address], 05/27/2023 10:00:00 06/27/2023 US, duplex, renal artery completed [address] [facility] [address], [place], [address], 06/28/2023 11:47:59 06/27/2023 home sleep study completed [address] [facility] [address], [place], [address], 07/08/2023 12:14:00 07/09/2023 exercise stress test completed [address] [facility] [address], [place], [address], 07/16/2023 12:25:57 08/07/2023 US, echocardiogram completed [address] [facility] [address], [place], [address], 08/08/2023 09:54:38 08/07/2023 CT, coronary calcium score completed [address] [facility] [address], [place], [address], 08/14/2023 16:44:56 Procedure Notes None recorded. Medical Equipment None Reported. Allergies Allergen ID Allergen Name Allergen Category Reaction Reaction Severity Criticality Documentation Date Start Date Code Code System Note Provider Name and Address Organization Details Recorded Time 42405 Product containin g penicilli n and antibioti c (product) medicatio n hives Not available Not available 10/11/2022 64839 05 SNOMED Not Available [facility] 00:39:49 Medications Name Sig Start Date Stop Date Status Note LastModified by Organization Details LastModified Time doxycycline hyclate 100 mg capsule Take 1 capsule twice a day by oral route. 04/24 completed Not Available Not Available Not Available azithromyci n 250 mg tablet Take 1 dose pk by oral route. active Not Available Not Available No t Available sertraline 100 mg tablet active Not Available Not Available Not Available tramadol 50 mg tablet 11/08 completed Not Available Not Available Not Available alprazolam 0.25 mg tablet active Not Available Not Available Not Available ergocalcife rol (vitamin D2) 1,250 mcg (50,000 unit) capsule active Not Available Not Available Not Available lisinopril 10 mg-hydrochl orothiazide 12.5 mg tablet Take 1 tablet every day by oral route. active Not Available Not Available No t Available methylpredn isolone 4 mg tablets in a dose pack Take 1 dose pk by oral route as directed. active Not Available Not Available No t Available albuterol sulfate HFA 90 mcg/actuati on aerosol inhaler active Not Available Not Available Not Available sertraline 50 mg tablet 11/08 completed Not Available Not Available Not Available bupropion HCl XL 300 mg 24 hr tablet, extended release active Not Available Not Available Not Available bupropion HCl XL 150 mg 24 hr tablet, extended release 04/24 completed Not Available Not Available Not Available Rexulti 3 mg tablet 04/24 completed Not Available Not Available Not Available Rexulti 1 mg tablet 04/19 completed Not Available Not Available Not Available Rexulti 0.5 mg tablet 04/19 completed Not Available Not Available Not Available Rexulti 2 mg tablet 11/14 completed Not Available Not Available Not Available Ozempic 1 mg/dose (2 mg/1.5 mL) subcutaneou s pen injector 04/24 completed Not Available Not Available Not Available Ozempic 0.25 mg or 0.5 mg (2 mg/1.5 mL) subcutaneou s pen injector active Not Available Not Available Not Available Wegovy 0.25 mg/0.5 mL subcutaneou s pen injector Inject 0.25 mg every week by subcutane ous route. 12/08 completed Not Available Not Available Not Available Mounjaro 7.5 mg/0.5 mL subcutaneou s pen injector 04/24 completed Not Available Not Available Not Available Mounjaro 5 mg/0.5 mL subcutaneou s pen injector Inject 5 mg every week by subcutane ous route. 11/14 completed Not Available Not Available Not Available Ozempic 0.25 mg or 0.5 mg (2 mg/3 mL) subcutaneou s pen injector Inject 0.5 mg every week by subcutane ous route. 04/24 completed Not Available Not Available Not Available Vitals Date Recorded Body mass index (BMI) Body mass index (BMI) Body height Body height Oxygen saturation Oxygen saturation in Arterial blood by Pulse oximetry Oxygen saturation Oxygen saturation in Arterial blood by Pulse oximetry Heart rate Heart rate Body temperature Body temperature Body weight Body weight Systolic blood pressure Diastolic blood pressure Systolic blood pressure Diastolic blood pressure Provider Name and Address Organization Details Last Updated DateTime 3 38.4 kg/m2 36.8 kg/m2 165.1 cm 165.1 cm 98 % 98 % 97 % 97 % 90 /min 80 /min 97.4 [degF] 97.2 [degF] 435713. 84 g 321010. 91 g 124 mm[Hg] 80 mm[Hg] 122 mm[Hg] 76 mm[Hg] Not Available [facility] 3 00:36:09 Date Recorded Body height Body mass index (BMI) Body weight Body temperature Heart rate Oxygen saturation Oxygen saturation in Arterial blood by Pulse oximetry Systolic blood pressure Diastolic blood pressure Provider Name and Address Organization Details Last Updated DateTime 3 165.1 cm 33.1 kg/m2 93379.8 8 g 97.4 [degF] 76 /min 98 % 98 % 126 mm[Hg] 78 mm[Hg] Hilda Schilling MA [facility] [employer] [facility] 3 16:31:49 Date Recorded Body height Body mass index (BMI) Body weight Body temperature Heart rate Oxygen saturation Oxygen saturation in Arterial blood by Pulse oximetry Systolic blood pressure Diastolic blood pressure Provider Name and Address Organization Details Last Updated DateTime 3 165.1 cm 34.8 kg/m2 36096.8 1 g 98.9 [degF] 78 /min 97 % 97 % 124 mm[Hg] 80 mm[Hg] Hilda Schilling MA [facility] [email or web address] [facility] 3 16:09:10 Date Recorded Body height Body mass index (BMI) Body weight Body temperature Heart rate Oxygen saturation Oxygen saturation in Arterial blood by Pulse oximetry Systolic blood pressure Diastolic blood pressure Provider Name and Address Organization Details Last Updated DateTime 3 165.1 cm 34.6 kg/m2 16004.2 1 g 97.8 [degF] 76 /min 98 % 98 % 118 mm[Hg] 80 mm[Hg] Hilda Schilling MA [facility] [email or web address] [facility] 3 11:36:57 Social History Question Answer Notes LastModified by Organizat ion Details LastModified Time Tobacco Smoking Status Former Smoker Not Available [facility] 10/11/2022 00:34:40 What Is Your Level Of Alcohol Consumption? None MIGRATION.06870 [id number] Information not available 10/11/2022 What Is Your Level Of Caffeine Consumption? None MIGRATION.39672 75491 Information not available 10/11/2022 In The 14 Days Before Symptom Onset, Have You Had Close Contact With A Laboratory-confi rmed COVID-19 While That Case Was Ill? No MIGRATION.30683 04054 Information not available 10/11/2022 In The 14 Days Before Symptom Onset, Have You Had Close Contact With A Person Who Is Under Investigation For COVID-19 While That Person Was Ill? No MIGRATION.79979 77408 Information not available 10/11/2022 What Type Of Diet Are You Following? REGULAR MIGRATION.53627 42709 Information not available 10/11/2022 What Is The Highest Grade Or Level Of School You Have Completed Or The Highest Degree You Have Received? 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 No MIGRATION.20695 65871 Information not available 10/11/2022 What Is The Fluoride Status Of Your Home? Unknown MIGRATION.36067 21669 Information not available 10/11/2022 When Did You Quit Smoking? 16+yearssincelastci garette MIGRATION.39036 95400 Information not available 10/11/2022 Are There Any Guns Present In Your Home? No MIGRATION.11901 10582 Information not available 10/11/2022 Do You Use Insect Repellent Routinely? No MIGRATION.94627 11370 Information not available 10/11/2022 Where Do You Live? [place]House MIGRATION.71847 51887 Information not available 10/11/2022 What Was The Date Of Your Most Recent Tobacco Screening? 05/29/2023 [email or web address] Information not available 05/29/2023 Do You Have Any Pets? Yes MIGRATION.56056 67270 Information not available 10/11/2022 Do You Use Your Seat Belt Or Car Seat Routinely? Yes MIGRATION.41351 13085 Information not available 10/11/2022 Do You Have Smoke And Carbon Monoxide Detectors In Your Home? Yes MIGRATION.42729 11425 Information not available 10/11/2022 Are You Passively Exposed To Smoke? No MIGRATION.83083 35295 Information not available 10/11/2022 Are There Any Smokers In Your House? No MIGRATION.58883 10015 Information not available 10/11/2022 Do You Feel Stressed (tense, Restless, Nervous, Or Anxious, Or Unable To Sleep At Night)? [id number] MIGRATION.05402 99550 Information not available 10/11/2022 Do You Use Any Illicit Or Recreational Drugs? No MIGRATION.00498 26300 Information not available 10/11/2022 Do You Use Sunscreen Routinely? Yes MIGRATION.56215 20892 Information not available 10/11/2022 Have You Recently Traveled Abroad? No MIGRATION.37420 81995 Information not available 10/11/2022 Do You Have Any Dietary Restrictions? No MIGRATION.67882 20048 Information not available 10/11/2022 Sex: Unknown Functional Status Question Answer Note LastModified by Organizat ion Details LastModified Time What is your exercise level? Occasional [id number] 26 Information not available 10/11/2022 Mental Status None recorded. Family History Relationship Description Onset Age of this Age Resolved Age Notes LastModified by Organization Details LastModified Time Paternal Grandfather Diabetes mellitus MIGRATION.516 [id number] Not available 10/11/2022 00:35:05 Paternal Grandmother Diabetes mellitus MIGRATION.205 [id number] Not available 10/11/2022 00:35:06 Mother Disorder of thyroid gland MIGRATION.309 [id number] Not available 10/11/2022 00:35:06 Mother Hypertensive disorder MIGRATION.718 [id number] Not available 10/11/2022 00:35:06 Father Hypertensive disorder MIGRATION.432 [id number] Not available 10/11/2022 00:35:06 Father Vertigo MIGRATION.494 [id number] Not available 10/11/2022 00:35:06 Brother Hypertensive disorder X3 MIGRATION.902 [id number] Not available 10/11/2022 00:35:06 Medical History Condition Response NERVE DISEASE N BLINDNESS N RHEUMATIC FEVER N KIDNEY STONES N BLADDER PROBLEMS N MRSA N OTHER # 1 N POLIO N LUNG DISEASE/DISORDER N HISTORY OF DRUG ABUSE N COPD N RADIATION / CHEMOTHERAPY N Other # 2 N BLOOD DISEASES N EAR OR HEARING PROBLEMS N MUMPS N SHINGLES N DEPRESSION (INCLUDING POST ) Y BOWEL PROBLEMS N STROKE/TIA N ULCERS N BENIGN PROSTATIC HYPERPLASIA N MEASLES N HYPOTENSION N MYOCARDIAL INFARCTION N OBESITY N GERD/NAUSEA N ANEURYSM N URINARY/BLADDER/KIDNEY PROBLEMS N CORONARY ARTERY DISEASE (CAD) N ADDICTION CONCERNS N Impotence N ENDOMETRIOSIS N USE OF BLOOD THINNERS N SKIN PROBLEMS N GASTROINTESTINAL DISORDER N PERIPHERAL VASCULAR DISEASE N MUSCLE,JOINT OR BONE PROBLEMS N GASTROINTESTINAL BLEEDING N BLOOD CLOTS N ASTHMA N CATARACTS N ERECTILE DYSFUNCTION N VARICOSITIES N GI PROBLEMS N Low Testosterone N INFERTILITY N AIDS/HIV N CHEMOTHERAPY / RADIATION N LIVER DISEASE N MALE HYPOGONADISM N HYPERTENSION Y Deficiency N TOURETTE'S N ANXIETY DISORDER Y BLOOD TRANSFUSION N ANEMIA/BLOOD DISORDER N CHRONIC EAR INFECTIONS N BRONCHITIS N TUBERCULOSIS N GLAUCOMA N FOOT PROBLEM N DIVERTICULITIS N SLEEP APNEA N CHICKENPOX N INFECTIOUS DISEASE N PROSTATE N HEART ARRHYTHMIA N INSOMNIA N HIGH CHOLESTEROL / HYPERLIPIDEMIA N EYE PROBLEMS N HYPERTHYROIDISM N EDEMA N CHRONIC PAIN SYNDROME N HYPOTHYROIDISM N CAROTID BLOCKAGE N CONSTIPATION N BACK / NECK PROBLEMS N HAVE YOU BEEN HOSPITALIZED OR SEEN IN [facility] IN THE PAST YEAR ? N ATHEROSCLEROSIS N BREAST PROBLEMS N DIALYSIS N ECZEMA N OSTEOPOROSIS N ARTHRITIS N NO SIGNIFICANT PAST MEDICAL HISTORY N APPENDICITIS N DIABETES, TYPE N BAD TEETH N ENT N HEARTBURN / REFLUX N AUTISM SPECTRUM DISORDER (ASD) N HEPATITIS / LIVER DISEASE N GOUT N SLEEP DISORDER N ALZHEIMER'S DISEASE N Brain Problems N DEMENTIA N HERPES N SEIZURES/EPILEPSY N HEADACHES/MIGRAINES N VASCULAR DISEASE N PACEMAKER N Blood Disorder N DIZZINESS N HEART DISEASE/HEART PROBLEMS N KIDNEY DISEASE N MULTIPLE SCLEROSIS N CANCER: SPECIFY N CARDIAC ARRHYTHMIA N ATRIAL FIBRILLATION N Gall Stones N PULMONARY EMBOLISM N AUTOIMMUNE DISEASE N Gynecological HistoryNo gynecological history recorded. Obstetrics History GPAL:G 0 P 0 0 0 0 Immunizations Vaccine Type Date Status Note Provider Nam e and Address Organization Details Recorded Time COVID-19, mRNA, LNP-S, PF, 100 mcg/0.5mL dose or 50 mcg/0.25mL dose 10/31/2020 completed Not Available [facility] 3 00:39:45 COVID-19, mRNA, LNP-S, PF, 100 mcg/0.5mL dose or 50 mcg/0.25mL dose 09/28/2020 completed Not Available [facility] 3 00:39:45 Influenza, split virus, quadrivalent, PF 06/06/2022 completed Not Available [facility] 3 00:39:45 Past Encounters Encounter ID Performer Location Encounter Start Date Encounter Closed Date Diagnosis/Indication Diagnosis SNOMED-CT Code Diagnosis ICD10 Code Diagnosis Note [id number] [facility] [place] [address] [place] [address] 11/08/2021 00:00:00 11/08/2021 16:32:15 [id number] [facility] [place] [address] [place] [address] 12/06/2021 00:00:00 12/06/2021 21:02:18 [id number] [facility] Lavon Alvares [address] [place] [address] 04/19/2022 00:00:00 04/19/2022 16:45:36 [id number] [facility] Janette sheehan [address] [place] [address] [place] [address] 06/06/2022 00:00:00 06/06/2022 17:37:03 [id number] [facility] Internal Med Janette sheehan [address] [place] [address] [place] [address] 07/04/2022 00:00:00 07/04/2022 12:17:10 [id number] JULIO CESAR PlummerMike [facility] Internal Med Janette sheehan [address] [place] [address] [place] [address] 11/14/2022 16:25:02 11/14/2022 16:48:00 Essential hypertension [id number] I10 on lisinopril /HCTZ Prediabetes [id number] R7 3.03 on Mounjaro per her request due to the $25 copay card, she is aware this is off label for prediabete sInsurance will no longer cover, she wants to try to switch to Ozempic pt is aware of side effects, risks, benefitspt denies any personal or family history of MEN II or MTC, denies and personal history of pancreatit ispt knows to call the office if any severe n/v or abdominal pain Major depr essive disorder [id number] F32.9 on wellbutrin , sertraline , Rexultifol lows psychiatry - Leena Bajwa in [facility] office if any change in mood or behavior Hyperlipidemia 20233020 E78.5 mild, no medswork on diet/exerc ise Obesity 563265394 E66.9 recommend healthy, well balanced mealsfocus on lean meats, fresh vegetables , fresh fruits, whole grainsredu ce fast/proce ssed foods or eating out to no more than 1-2 times per weekaim to get 30 min of exercise most days of the week- walking is a great choicealso recommend resistance training 2-3 times per week Insomnia 606326106 G47.0 0 mood meds are managed by psychiatry [id number] LILLIE Plummer [facility] Internal Med Janette sheehan [address] [place] [address] [place] [address] 04/24/2023 16:00:05 04/24/2023 16:27:38 Essential hypertension 77159576 I10 on lisinopril /HCTZ Prediabetes 306950443 R7 3.03 insurance would no longer cover mounjaro, would not cover rosina hollis on lifestyle measures Major depr essive disorder 033818778 F32.9 on wellbutrin , sertraline , Rexultifol lows psychiatry - Leenahannah Bajwa in [facility] office if any change in mood or behavior Hyperlipidemia 86544173 E78.5 mild, no medswork on diet/exerc ise Obesity 029409505 E66.9 recommend healthy, well balanced mealsfocus on lean meats, fresh vegetables , fresh fruits, whole grainsredu ce fast/proce ssed foods or eating out to no more than 1-2 times per weekaim to get 30 min of exercise most days of the week- walking is a great choicealso recommend resistance training 2-3 times per week Insomnia 162344660 G47.0 0 mood meds are managed by psychiatry [id number] Betina Jackson, [employer] RN-C [facility] Internal Med Janette sheehan [address] [facility] [place] [address] 05/29/2023 11:35:58 05/29/2023 11:47:02 Essential hypertension 67100515 I10 on lisinopril /HCTZ Prediabetes 231659824 R7 3.03 insurance would no longer cover mounjaro, would not cover rosina hollis on lifestyle measures Major depr essive disorder 728091081 F32.9 on wellbutrin , sertraline , Rexultifol lows psychiatry - Leena Bajwa in [facility] office if any change in mood or behavior Hyperlipidemia 17100919 E78.5 mild, no medswork on diet/exerc ise Obesity 657318522 E66.9 recommend healthy, well balanced mealsfocus on lean meats, fresh vegetables , fresh fruits, whole grainsredu ce fast/proce ssed foods or eating out to no more than 1-2 times per weekaim to get 30 min of exercise most days of the week- walking is a great choicealso recommend resistance training 2-3 times per week Insomnia 105978979 G47.0 0 mood meds are managed by psychiatry Chest pain 65012304 R07. 9 none todayER workup was negative for acute MIHas already been referred to cardiology - Dr. Aziza Canchola did give her the number again today, encouraged her to call to get her appt set upback to ER if any recurrence prior to cardiology appt Anxiety 91288299 F41.9 follows psychiatry as aboveencou raged her to reach out to her psych to discuss her anxiety as she feels it's not controlled counseling recommende d- names/numb ers provided to patient todaycall office if any change in mood or behaviorER or 911 if any crisis situation develops Acute sero us otitis media of right ear [id number] 011884 H65.01 Start Zyrtec and FlonasePat ient states she has both of these at home so she does not need scriptsCal l office if no improvemen t after meds and we can try a medrol dose pack Health Concerns Section Related Observation LastModified by Organization Detai ls LastModified Time None Recorded Concern Status LastModified by Organization Details LastModified Time None Recorded Advance Directives Directive None Recorded Payers Encounter Date Sequence Insurance Name Policy Number Policy Figueroa Covered Member ID Figueroa Member ID Guarantor Name 11/14/2022 1 [employer] [id number] [id number] 04/24/2023 1 [employer] [id number] [facility] [id number] 2 [facility] 05/29/2023 1 [employer] [id number] [facility] [id number] 2 [facility] Notes Date Note Type Note Provider Name and Address Organization Details Recorded Time 11/14/2022 text/html Jocelynn presents today for follow-up. She has maintained a 30 lb weight loss. She is doing very well on the Mounjaro. However, her insurance is no longer covering it. She has 2 shots left. She would like to see if her insurance would cover and other weekly shot to help treat the pre diabetes, especially with how well she has done on the Mounjaro. Would like to try Ozempic (Wegovy is a plan exclusion). She reports her blood pressures been well controlled at home. He is tolerating her med without difficulty. She continues to follow psychiatry for her mood. She denies any SI or HI today. She is due for labs. LILLIE Plummer [address], [place], [address], [place] 11/14/2022 16:49:38 04/24/2023 text/html Jocelynn presents today for follow-up. She reports her blood pressures been well controlled on her current medication at home. She is not having any side effects with this. She had to stop the mounjaro as her insurance would no longer cover it. We tried Ozempic but they would not cover that either. She is currently working on lifestyle changes for the prediabetes. She continues to follow with her psychiatrist. She denies any SI or HI today. She reports she recently had labs done from her psychiatrist. She will get us a copy of those. LILLIE Plummer [address], [address] [employer], [place], [address], [place] 04/24/2023 17:08:33 05/29/2023 text/html Jocelynn presents today for ER follow-up. She also has an additional complaint she would like to discuss. She was seen in the ER for chest pain. Her cardiac workup was negative at that time. She reports she is still having some chest pressure intermittently. When she called for her ER follow-up, we did go ahead and place her a cardiology referral so she can get that scheduled. She has not called to set up that appointment yet. Today she is currently not having any chest pain. She reports that she thinks some of this is due to her anxiety being uncontrolled. She is following Psychiatry for this. She denies any SI or HI today. She tells me she has not yet called her psychiatrist to report the symptoms. She is not currently seeing a counselor, she would be interested in taking the numbers for those. She also reports she has been having some intermittent right ear pain and pressure. No drainage. Denies any allergy symptoms. LILLIE Plummer [address], [place], [address], [place] 05/29/2023 12:11:30 OBGyn Episode No OBEpisode recorded.
--- OUTSIDE RECORDS SUMMARY | 2024-09-26 19:18 | XMS_ITS | Referral Summary ---
Author Organization [facility] [employer] Address [address] [place] [address] Care Team Providers Care Gas Golf Cart Repairer Name Role Phone Kelvin Tam DO Primary Care Provider [phone] Source Comments [facility],non-owned Affiliates and Associated Physician Practices is amultiple site organization consisting of ambulatory clinics and hospital sitesin [place], [place], [place] and [place]. This disclosure is being madepursuant to the Care Everywhere program and may not contain all information available regarding this patient. Last updated 18.[facility] [employer] Allergies Active Allergy Reactions Criticality Noted Date Comments Penicillins Rash Medium 06/27/2019 Medications * Be aware that medications may not be up to date on this document. Alwaysverify current medications with the patient. Medication Sig Dispensed Refills Start Date End Date Status Sertraline HCl (ZOLOFT PO) Active LISINOPRIL PO Active azithromycin (ZITHROMAX) 250 MG tabletIndications:Expo sure to strep throat Take 2 tabs today, then 1 tab daily for next 4 days 6 tablet 09/28/2019 Active Social History Tobacco Use Types Packs/Day Years Used Date Smoking Tobacco: Never Smokeless Tobacco: Never Alcohol Use Standard Drinks/Week Comments Yes 0 (1 standard drink = 0.6 oz pur e alcohol) Sex and Gender Information Value Date Recorded Sex Assigned at Not on file Gender Identity Not on file Sexual Orientation Not on file Last Filed Vital Signs Vital Sign Reading Time Taken Comments Blood Pressure 146/92 09/28/2019 12:38 PM THERAPIST RADIATION Pulse 124 09/28/2019 12:38 PM THERAPIST RADIATION Temperature 39.1 C (102.4 F) 09/28/2019 12:38 PM THERAPIST RADIATION Respiratory Rate 16 09/28/2019 12:38 PM THERAPIST RADIATION Oxygen Saturation 98% 09/28/2019 12:38 PM THERAPIST RADIATION Inhaled Oxygen Concentration - - Weight 90.7 kg (200 lb) 09/28/2019 12:38 PM THERAPIST RADIATION Height 165.1 cm (5' 5 ) 09/28/2019 12:38 PM THERAPIST RADIATION Body Mass Index 33.28 09/28/2019 12:38 PM THERAPIST RADIATION Plan of Treatment Not on file Care Teams Gas Golf Cart Repairer Relationship Specialty Start Date End Date Kelvin Tam DO PCP - General Internal Medicine 06/27/19
--- OUTSIDE RECORDS SUMMARY | 2024-09-26 19:18 | XMS_ITS | Continuity of Care Document ---
Author Organization [facility] Address [address] [place] [address] Phone Care Team Providers Care Radio Division Lieutenant Name Role Phone Farias OD, Jose Unavailable Unavailable Procedures Procedure Date Eye Exam & Treatment Refraction Cntct Lens Hydrophilic Toric Or Prism Ba llast Tax - Medical Contact Lens Hydrophilic, Spherical Tax - Medical CL Replacement - Vistakon Disp W/BW Soft Sales Tax No Charge Contact Lens Check No Charge Contact Lens Check Office/outpatient Visit, Est Office/outpatient Visit, Est Office/outpatient Visit, Est Office/outpatient Visit, Est Oct- Eye Exam Established Pt Oct- Eye Exam Established Pt Oct- Eye Exam Established Pt Oct- Office/outpatient Visit, Est Oct--2007 Eye Exam Established Pt Oct- Office/outpatient Visit, Est Oct- Eye Exam Established Pt May- Advance Directives Directive Yes / No Effective Date File Name No Information Encounters Encounter Description Practice Location Reason(s) For Visit Diagnoses Date Provider Providers Copied on Encounter [facility], [address], [place], [place], [id number], [place] tel:[phone] [facility] No Information 1-201 0 Farias OD Jose. [address] , [address], [place], [address], [place]. tel:[phone] [facility], [address] [place] [address] [address], [place], [place], [address], [place] tel:[phone] [facility] No Information Mar-1 1-201 0 Farias OD Jose. [address] , [address], [place], [place], [facility], [place]. tel:[phone] Referring Provider: Jose Farias OD A, [address], [place], [place], [facility]. tel:[phone] [facility], [address] [place] [address] [address], [place], [place], [address], [place] tel:[phone] [facility] No Information Feb-0 9-201 0 Farias OD Jose. [address] [facility] , [address], [place], [place], [facility], [place]. tel:[phone] [facility], [address] [place] [address] [address], [place], [place], [id number], [place] tel:[phone] [facility] No Information Neeraj-1 9-200 9 Farias OD Jose. [address], [address], [place], [place], [facility], [place]. tel:[phone] [facility], [address] [place] [address] [address], [place], [place], [address], [place] tel:[phone] [facility] No Information Neeraj-0 4-200 9 Farias OD Jose. [address] , [address], [place], [place], [facility], [place]. tel:[phone] Office/outpat ient Visit, Est [facility], [address] [place] [address] [address], [place], [place], [id number], [place] tel:[phone] [facility] No Information Nov-2 0-200 8 Farias OD Jose. [address] , [address], [place], [address], [place]. tel:[phone] Office/outpat ient Visit, [facility], [address], [place], [place], [address], [place] tel:[phone] [facility] No Information Nov-1 3-200 8 Farias OD Jose. [address] , [address], [place], [place], [facility], [place]. tel:[phone] Office/outpat ient Visit, [facility], [address] [place] [address] [address], [place], [place], [id number], [place] tel:[phone] [facility] No Information Nov-1 2-200 8 Farias OD Jose. [address] [facility] , [address], [place], [facility], [place]. tel:[phone] Office/outpat ient Visit, [facility], [address] [place] [address] [address], [place], [place], [address], [place] tel:[phone] [facility] No Information Oct-2 9-200 8 Farias OD Jose. [address] , [address], [place], [place], [facility], [place]. tel:[phone] [facility], [address] [place] [address] [address], [place], [place], [address], [place] tel:[phone] [facility] No Information Oct-2 0-200 8 Krishnasamy Blaze. [facility] [address], [place], [place], [facility], [place]. tel:[phone] [facility], [address] [place] [address] [address], [place], [place], [address], [place] tel:[phone] [facility] No Information Oct-1 5-200 8 Krishnasamy Blaze. [address] [facility] [address], [place], [facility], [place]. tel:[phone] [facility], [address], [place], [place], [address], [place] tel:[phone] [facility] No Information Oct-1 3-200 8 Krishnasamy Blaze. [address], [place], [place], [facility], [place]. tel:[phone] Office/outpat ient Visit, [facility], [address] [place] [address] [address], [place], [place], [address], [place] tel:[phone] [facility] No Information Oct-1 0-200 8 Krishnasamy Blaze. [address] [facility] [address], [place], [facility], [place]. tel:[phone] [facility], [address], [place], [place], [address], [place] tel:[phone] [facility] No Information Oct-0 8-200 8 Doisy Edward. [facility] , [address], [place], [facility], [place]. tel:[phone] Office/outpat ient Visit, [facility], [address], [place], [place], [address], [place] tel:[phone] [facility] No Information Oct-0 7-200 8 Leonor Camejo. [address], [place], [facility], [place]. tel:[phone] [facility], [address] [place] [address] [address], [place], [place], [address], [place] tel:[phone] [facility] No Information Oct-0 6-200 8 Doisy Edward. [address], [place], [place], [facility], [place]. tel:[phone] Family History Family Member Type Diagnosis Age At Onset No Information Payers Payer name Insurance type Covered libertarian ID Hayder owen(s) [employer] Plan [id number] Social History Type Description Quantity Date Captured Comments Sex Female Smoking Status No Information Chief Complaint And Reason For Visit No Information Reason For Referral Reason For Referral No Information History Of Present Illness Encounter Date Complaint History Of Prese nt Illness No Information Functional Status Date Functional Assessmen t No Information Instructions Date Instruction Additional Infor mation No Information Assessments Type Assessment Date No Information Patient Care Teams Name Effective Dates (start - stop) Status Members No Information
--- OUTSIDE RECORDS SUMMARY | 2024-09-26 19:18 | XMS_ITS | Clinical Summary ---
Author Organization [facility] [employer] Address [address] [place] [address] Care Team Providers Care Boiler Inspector Name Role Phone Kelvin Tam DO Primary Care Provider [phone] Source Comments [facility],non-owned Affiliates and Associated Physician Practices is amultiple site organization consisting of ambulatory clinics and hospital sitesin [place], [place], [place] and [place]. This disclosure is being madepursuant to the Care Everywhere program and may not contain all information available regarding this patient. Last updated 18.[facility] [employer] Allergies Active Allergy Reactions Criticality Noted Date [...] Comments Blood Pressure 146/92 09/28/2019 12:38 PM MOLD ENGRAVER Pulse 124 09/28/2019 12:38 PM MOLD ENGRAVER Temperature 39.1 C (102.4 F) 09/28/2019 12:38 PM MOLD ENGRAVER Respiratory Rate 16 09/28/2019 12:38 PM MOLD ENGRAVER Oxygen Saturation 98% 09/28/2019 12:38 PM MOLD ENGRAVER Inhaled Oxygen Concentration - - Weight 90.7 kg (200 lb) 09/28/2019 12:38 PM MOLD ENGRAVER Height 165.1 cm (5' 5 ) 09/28/2019 12:38 PM MOLD ENGRAVER Body Mass Index 33.28 09/28/2019 12:38 PM MOLD ENGRAVER Plan of Treatment Health Maintenance Due Date Last Done Comments COLOGUARD (AGES 45-75) - COL ON CA SCREENING 1973 COLON MONITORING 1973 COLONOSCOPY - COLON CA SCREENING 1973 CT COLONOGRAPHY - COLON CA SCREENING 1973 Colorectal Cancer Screening 1973 FIT - COLON CA SCREENING 1973 FLEX SIG - COLON CA SCREENING 1973 LIPID TESTING 1973 MAMMOGRAM 1973 PAP SMEAR 1973 HIV SCREENING 1988 HEPATITIS C SCREENING 03/10/1991 DTAP/TDAP/TD VACCINES (1 - Tdap) 1992 HEPATITIS B VACCINE (1 of 3 - 19+ 3-dose series) 1992 SCREENING FOR DIABETES 06/27/2019 PNEUMOCOCCAL VACCINE 50+ (1 of 1 - PCV) 2023 ZOSTER VACCINE (1 of 2) 2023 COVID-19 VACCINE (1 - 2023-2 5 season) 2024 INFLUENZA VACCINE (#1) 2024 DEPRESSION SCREENING 08/12/2024 HIB VACCINE Aged Out No longer eligi ble based on patient's age to complete this topic HPV VACCINE Aged Out No longer eligi ble based on patient's age to complete this topic MENINGOCOCCAL (Group B) VACCINE Aged Out No longer eligible based on patient's age to complete this topic MENINGOCOCCAL VACCINE Aged Out No elena [place]oacano eligible based on patient's age to complete this topic PNEUMOCOCCAL VACCINE Aged Out No long er eligible based on patient's age to complete this topic Care Teams Boiler Inspector Relationship Specialty Start Date End Date Kelvin Tam DO PCP - General Internal Medicine 06/27/19
--- OUTSIDE RECORDS SUMMARY | 2024-09-26 19:18 | XMS_ITS | Clinical Summary ---
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 Gender Identity Not on file Sexual Orientation Not on file Plan of Treatment Health Maintenance Due Date Last Done Comments Hepatitis C Virus (HCV) Screening 1973 TdaP Immunization 1973 Hepatitis B Immunization (1 of 3 - 19+ 3-dose series) 1992 Pap Smear 1994 Cervical Cancer Screening (CCS) 2003 HPV/Cotest 2003 Colonoscopy 2018 Colorectal Cancer Screening 2018 Cologuard 2023 Immunochemical Fecal Occult Blood 2023 Mammogram 2023 Pneumococcal Immunization (5 0+ years) (1 of 1 - PCV) 2023 Zoster Immunization (1 of 2) 2023 Influenza Immunization (#1) 2024 05/07/2017 SARS-COV-2 Immunization ( season) 2024 Respiratory Syncytial Virus (RSV) Immunization (Adult) (1 - 1-dose 75+ series) 2048 Meningococcal Immunization (ACWY) Aged Out No longer eligible based on patient's age to complete this topic Pneumococcal Immunization Combined Aged Out No longer eligible based on patient's age to complete this topic Rotavirus Immunization Aged Out No lo nger eligible based on patient's age to complete this topic
--- OUTSIDE RECORDS SUMMARY | 2024-09-26 19:18 | XMS_ITS | Data Portability ---
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 due. Colonoscopy completed 4-5 years ago and had 10 year clearance sleep study completed: not bad enough for machine gyne exam : dr. rocha; hx of ablation but UTD on pap smears. eye and dental UTD Not available 11/20/2023 15:38:12 06/01/2024 06/01/2024 Mammogram: 2021. due. Colonoscopy completed 4-5 years ago and had 10 year clearance sleep study completed: not bad enough for machine gyne exam : dr. rocha; hx of ablation but UTD on pap smears. eye and dental UTD Not available 06/01/2024 16:46:14 Plan of Treatment Reminders Order Date Submit Date Provider Last Modified By Organization Details Last Modified Time Details Appointments ANY 15 2024 03:30P M NOLAN Conner Not available Not available Not available Lab HbA1c (hemoglob in A1c), blood 2023 024 [facility], [address] [facility] [address], [address], 06/25/2024 11:17:01 CMP, serum or plasma 2023 024 [facility], [address] [facility], [facility], [place], [address], 06/25/2024 11:17:00 lipid panel, serum 2023 024 [facility], [address] [place] [address], [facility] 2, [place], [address], 06/25/2024 11:16:59 iron + TIBC + ferritin, serum 2023 024 [facility], [address] [place] [address], [facility] 2, [place], [address], 06/25/2024 11:17:05 CBC w/ auto diff 2023 024 [facility], [address] [place] [address], [facility], [place], [address], 06/25/2024 11:17:04 insulin, serum 2023 024 [facility], [address] [place] [address], [facility] 2, [place], [address], 06/25/2024 11:17:02 insulin, serum 2023 024 [facility], [address] [place] [address], [facility] 2, [place], [address], 11/24/2023 12:36:02 HbA1c (hemoglob in A1c), blood 2023 024 [facility], [address] [place] [address], [facility], [place], [address], 11/24/2023 12:36:01 CMP, serum or plasma 2023 024 [facility], [facility], [facility], [place], [address], 11/24/2023 12:36:00 lipid panel, serum 2023 024 [facility], [address] [place] [address], [facility] 2, [place], [address], 11/24/2023 12:35:59 TSH + free T4, serum 2023 024 [facility], [address] [facility], [facility] 2, [place], [address], 11/24/2023 12:36:00 iron + TIBC + ferritin, serum 2023 024 [facility], [address] [facility], [facility] 2, [place], [address], 11/24/2023 12:36:03 CBC w/ auto diff 2023 024 [facility], [address] [facility], [facility] 2, [place], [address], 11/24/2023 12:36:02 vitamin B12 + folate, serum or blood 2023 024 [facility], [address] [facility], [facility] 2, [place], [address], 11/24/2023 12:36:01 Referral None recorded. Procedures None recorded. Surgeries None recorded. Imaging XR, chest, 2 view 2023 [facility], [address] [place] [address] , [address], [place], [address], 11/20/2023 17:07:18 Medication Orders lisinopri l 10 mg-hydroc hlorothia zide 12.5 mg tablet 2023 024 [facility], [address] [place] [address], [address], 06/02/2024 17:40:07 bupropion HCl XL 150 mg 24 hr tablet, extended release 2023 024 [facility], [address] [place] [address], [address], 06/01/2024 17:07:40 Zepbound 2.5 mg/0.5 mL subcutane ous pen injector 2023 024 [id number], [address], [place], [place], [id number], 06/28/2024 11:53:24 Medrol (Flaquito) 4 mg tablets in a dose pack 2023 [facility] #[id number], [address], [place], [place], [id number], 06/01/2024 17:05:33 cefdinir 300 mg capsule [address] [facility]126, [address], [place], [place], [id number], 08/06/2024 10:45:38 hydrocodo ne 10 mg-chlorp heniramin e 8 mg/5 mL oral susp extend.re l 12hr [address] [facility]09877, [address], [place], [place], [id number], 12/24/2023 13:57:34 azithromy júnior 250 mg tablet [address] [id number], [address], [place], [place], [id number], 09/09/2024 14:04:50 sertralin e 100 mg tablet 2023 [facility], [facility], [place], [address], 11/20/2023 15:47:10 bupropion HCl XL 300 mg 24 hr tablet, extended release 2023 [facility], [facility], [place], [address], 06/01/2024 17:11:20 Flovent HFA 110 mcg/actua tion aerosol inhaler 2023 024 [id number], [address], [place], [place], [id number], 11/20/2023 15:44:42 Patient TargetsNo targets recorded. Patient Instructions Encounter Date Encounter Id Patient Instructions Last Modified By Organization Details Last Modified Time 11/20/2023 [id number] A healthy lifestyle: care instructions Not available 11/20/2023 15:44:11 06/01/2024 [id number] A healthy lifestyle: care instructions Not available 06/01/2024 17:07:38 Reason for Referral None Reported. Results Created Date Observation Date Name Description Value Unit Range Abnormal Flag Note LastModifiedBy Organization Detail LastModifiedTime 11/22/19 24 11/23/2023 LIPID PANEL W/ CHOL/ HDL RATIO cholesterol, total 204 mg/dL 100-19 9 above high normal Not Available [facility] ([facility]) [address] [place], [address], 11/24/2023 12:35:59 11/22/19 24 11/23/2023 LIPID PANEL W/ CHOL/ HDL RATIO triglyceride s 114 mg/dL 0-149 Not Available [facility] ([facility]) [address] [place], [address], 11/24/2023 12:35:59 11/22/19 24 11/23/2023 LIPID PANEL W/ CHOL/ HDL RATIO HDL cholesterol 52 mg/dL >39 Not Available [facility] ([facility]) [address] [place], [address], 11/24/2023 12:35:59 11/22/19 24 11/23/2023 LIPID PANEL W/ CHOL/ HDL RATIO VLDL cholesterol anish 20 mg/dL 5-40 Not Available [facility] ([facility]) [address] [place], [address], 11/24/2023 12:35:59 11/22/19 24 11/23/2023 LIPID PANEL W/ CHOL/ HDL RATIO LDL chol calc ([facility]) 132 mg/dL 0-99 above high normal Not Available [facility] ([facility]) [address] [place], [address], 11/24/2023 12:35:59 11/22/19 24 11/23/2023 LIPID PANEL W/ CHOL/ HDL RATIO T. chol/HDL ratio 3.9 ratio 0.0-4. 4 T. Chol/ HDL Ratio Men Women 1/2 Avg.R isk 3.4 3.3 Avg.R isk 5.0 4.4 2X Avg.R isk 9.6 7.1 3X Avg.R isk 23.4 11.0 Not Available [facility] ([facility]) [address] [place], [address], 11/24/2023 12:35:59 11/22/19 24 11/23/2023 TSH+F REE T4 TSH 0.879 uIU/m L 0.450- 4.500 Not Available [facility] ([facility]) [address] [place], [address], 11/24/2023 12:35:59 11/22/19 24 11/23/2023 TSH+F REE T4 T4,free(dire ct) 1.14 NG/dL 0.82-1 .77 Not Available [facility] ([facility]) [address] [place], [address], 11/24/2023 12:35:59 11/22/19 24 11/23/2023 COMP. METAB OLIC PANEL (14) glucose 95 mg/dL 70-99 Not Available [facility] ([facility]) [address] [place], [address], 11/24/2023 12:36:00 11/22/19 24 11/23/2023 COMP. METAB OLIC PANEL (14) BUN 16 mg/dL 6-24 Not Available [facility] ([facility]) [address] [facility] [place], [address], 11/24/2023 12:36:00 11/22/19 24 11/23/2023 COMP. METAB OLIC PANEL (14) creatinine 0.74 mg/dL 0.57-1 .00 Not Available [facility] ([facility]) [address] [facility] [place], [address], 11/24/2023 12:36:00 11/22/19 24 11/23/2023 COMP. METAB OLIC PANEL (14) eGFR 99 mL/mi n/1.7 3 >59 Not Available [facility] ([facility]) [address] [facility] [place], [address], 11/24/2023 12:36:00 11/22/19 24 11/23/2023 COMP. METAB OLIC PANEL (14) BUN/creatini ne ratio 22 9-23 Not Available [facility] ([facility]) [address] [facility] [place], [address], 11/24/2023 12:36:00 11/22/19 24 11/23/2023 COMP. METAB OLIC PANEL (14) sodium 138 mmol/ L 134-14 4 Not Available [facility] ([facility]) [address] [facility] [place], [address], 11/24/2023 12:36:00 11/22/19 24 11/23/2023 COMP. METAB OLIC PANEL (14) potassium 4.2 mmol/ L 3.5-5. 2 Not Available [facility] ([facility]) [address] [facility] [place], [address], 11/24/2023 12:36:00 11/22/19 24 11/23/2023 COMP. METAB OLIC PANEL (14) chloride 102 mmol/ L 96-106 Not Available [facility] ([facility]) [address] [facility] [place], [address], 11/24/2023 12:36:00 04/12/20 24 11/23/2023 COMP. METAB OLIC PANEL (14) carbon dioxide, total 24 mmol/ L 20- Not Available [facility] ([facility]) [address] [place], [address], 11/24/2023 12:36:00 11/22/19 24 11/23/2023 COMP. METAB OLIC PANEL (14) calcium 8.6 mg/dL 8.7-10 .2 below low normal Not Available [facility] ([facility]) [address] [place], [address], 11/24/2023 12:36:00 11/22/19 24 11/23/2023 COMP. METAB OLIC PANEL (14) protein, total 6.3 g/dL 6.0-8. 5 Not Available [facility] ([facility]) [address] [place], [address], 11/24/2023 12:36:00 11/22/19 24 11/23/2023 COMP. METAB OLIC PANEL (14) albumin 4.1 g/dL 3.9-4. 9 Not Available [facility] ([facility]) [address] [place], [address], 11/24/2023 12:36:00 11/22/19 24 11/23/2023 COMP. METAB OLIC PANEL (14) globulin, total 2.2 g/dL 1.5-4. 5 Not Available [facility] ([facility]) [address] [place], [address], 11/24/2023 12:36:00 11/22/19 24 11/23/2023 COMP. METAB OLIC PANEL (14) A/G ratio 1.9 1.2-2. 2 Not Available [facility] ([facility]) [address] [facility] [place], [address], 11/24/2023 12:36:00 11/22/19 24 11/23/2023 COMP. METAB OLIC PANEL (14) bilirubin, total 0.3 mg/dL 0.0-1. 2 Not Available [facility] ([facility]) [address] [facility] [place], [address], 11/24/2023 12:36:00 11/22/19 24 11/23/2023 COMP. METAB OLIC PANEL (14) alkaline phosphatase 83 IU/L 44-121 Not Available [facility] ([facility]) [address] [facility], [place], [address], 11/24/2023 12:36:00 11/22/19 24 11/23/2023 COMP. METAB OLIC PANEL (14) AST (SGOT) 13 IU/L 0-40 Not Available [facility] ([facility]) [address] [facility] [place], [address], 11/24/2023 12:36:00 11/22/19 24 11/23/2023 COMP. METAB OLIC PANEL (14) ALT (SGPT) 16 IU/L 0-32 Not Available [facility] ([facility]) [address] [facility] [place], [address], 11/24/2023 12:36:00 11/22/19 24 11/23/2023 VITAM IN B12 AND FOLAT E vitamin B12 972 pg/mL 232-12 45 Not Available [facility] ([facility]) [address] [facility] [place], [address], 11/24/2023 12:36:00 11/22/19 24 11/23/2023 VITAM IN B12 AND FOLAT E folate (folic acid), serum >20.0 NG/mL >3.0 A serum folat e bruno ntrat ion of less than 3.1 ng/mL is consi dered to repre sent clini anish defic iency . Not Available [facility] ([facility]) [address] [facility], [place], [address], 11/24/2023 12:36:00 11/22/19 24 11/23/2023 HEMOG LOBIN A1C hemoglobin A1C 6.0 % 4.8-5. 6 above high normal Predi abete s: 5.7 - 6.4 Diabe amanda: >6.4 Glyce arturo contr ol for adult s with diabe amanda: <7.0 Not Available [facility] ([facility]) [address] [facility], [place], [address], 11/24/2023 12:36:01 11/22/19 24 11/24/2023 INSUL IN insulin 13.3 uIU/m L 2.6-24 .9 Not Available [facility] ([facility]) [address] [facility], [place], [address], 11/24/2023 12:36:02 11/22/19 24 11/23/2023 CBC WITH DIFFE RENTI AL/PL ATELE T WBC 6.0 x10e3 /uL 3.4-10 .8 Not Available [facility] ([facility]) [address] [facility], [place], [address], 11/24/2023 12:36:02 11/22/19 24 11/23/2023 CBC WITH DIFFE RENTI AL/PL ATELE T RBC 4.36 x10e6 /uL 3.77-5 .28 Not Available [facility] ([facility]) [address] [place], [address], 11/24/2023 12:36:02 11/22/19 24 11/23/2023 CBC WITH DIFFE RENTI AL/PL ATELE T hemoglobin 12.1 g/dL 11.1-1 5.9 Not Available [facility] ([facility]) [address] [place], [address], 11/24/2023 12:36:02 11/22/19 24 11/23/2023 CBC WITH DIFFE RENTI AL/PL ATELE T hematocrit 37.5 % 34.0-4 6.6 Not Available [facility] ([facility]) [address] [facility], [place], [address], 11/24/2023 12:36:02 11/22/19 24 11/23/2023 CBC WITH DIFFE RENTI AL/PL ATELE T MCV 86 fL 79-97 Not Available [facility] ([facility]) [address] [facility], [place], [address], 11/24/2023 12:36:02 11/22/19 24 11/23/2023 CBC WITH DIFFE RENTI AL/PL ATELE T MCH 27.8 pg 26.6-3 3.0 Not Available [facility] ([facility]) [address] [facility], [place], [address], 11/24/2023 12:36:02 11/22/19 24 11/23/2023 CBC WITH DIFFE RENTI AL/PL ATELE T MCHC 32.3 g/dL 31.5-3 5.7 Not Available [facility] ([facility]) [address] [facility], [place], [address], 11/24/2023 12:36:02 11/22/19 24 11/23/2023 CBC WITH DIFFE RENTI AL/PL ATELE T RDW 15.5 % 11.7-1 5.4 above high normal Not Available [facility] ([facility]) [address] [facility], [place], [address], 11/24/2023 12:36:02 11/22/19 24 11/23/2023 CBC WITH DIFFE RENTI AL/PL ATELE T platelets 312 x10e3 /uL 150-45 0 Not Available [facility] ([facility]) [address] [place], [address], 11/24/2023 12:36:02 11/22/19 24 11/23/2023 CBC WITH DIFFE RENTI AL/PL ATELE T neutrophils 59 % notest ab. Not Available [facility] ([facility]) [address] [facility], [place], [address], 11/24/2023 12:36:02 11/22/19 24 11/23/2023 CBC WITH DIFFE RENTI AL/PL ATELE T lymphs 25 % notest ab. Not Available [facility] ([facility]) [address] [facility], [place], [address], 11/24/2023 12:36:02 11/22/19 24 11/23/2023 CBC WITH DIFFE RENTI AL/PL ATELE T monocytes 9 % notest ab. Not Available [facility] ([facility]) [address] [facility], [place], [address], 11/24/2023 12:36:02 11/22/19 24 11/23/2023 CBC WITH DIFFE RENTI AL/PL ATELE T eos 5 % notest ab. Not Available [facility] ([facility]) [address] [facility], [place], [address], 11/24/2023 12:36:02 11/22/19 24 11/23/2023 CBC WITH DIFFE RENTI AL/PL ATELE T basos 1 % notest ab. Not Available [facility] ([facility]) [address] [facility], [place], [address], 11/24/2023 12:36:02 11/22/19 24 11/23/2023 CBC WITH DIFFE RENTI AL/PL ATELE T neutrophils (absolute) 3.6 x10e3 /uL 1.4-7. 0 Not Available [facility] ([facility]) [address] [facility], [place], [address], 11/24/2023 12:36:02 11/22/19 24 11/23/2023 CBC WITH DIFFE RENTI AL/PL ATELE T lymphs (absolute) 1.5 x10e3 /uL 0.7-3. 1 Not Available [facility] ([facility]) [address] [place], [address], 11/24/2023 12:36:02 11/22/19 24 11/23/2023 CBC WITH DIFFE RENTI AL/PL ATELE T monocytes(ab solute) 0.5 x10e3 /uL 0.1-0. 9 Not Available [facility] ([facility]) [address] [facility], [place], [address], 11/24/2023 12:36:02 11/22/19 24 11/23/2023 CBC WITH DIFFE RENTI AL/PL ATELE T eos (absolute) 0.3 x10e3 /uL 0.0-0. 4 Not Available [facility] ([facility]) [address] [facility], [place], [address], 11/24/2023 12:36:02 11/22/19 24 11/23/2023 CBC WITH DIFFE RENTI AL/PL ATELE T baso (absolute) 0.1 x10e3 /uL 0.0-0. 2 Not Available [facility] ([facility]) [address] [facility], [place], [address], 11/24/2023 12:36:02 11/22/19 24 11/23/2023 CBC WITH DIFFE RENTI AL/PL ATELE T immature granulocytes 1 % notest ab. Not Available [facility] ([facility]) [address] [facility], [place], [address], 11/24/2023 12:36:02 11/22/19 24 11/23/2023 CBC WITH DIFFE RENTI AL/PL ATELE T immature grans (abs) 0.0 x10e3 /uL 0.0-0. 1 Not Available [facility] ([facility]) [address] [place], [address], 11/24/2023 12:36:02 11/22/19 24 11/23/2023 FE+TI BC+FE R iron bind.cap.(TI BC) 323 ug/dL 250-45 0 Not Available [facility] ([facility]) [address] [facility], [place], [address], 11/24/2023 12:36:03 11/22/19 24 11/23/2023 FE+TI BC+FE R UIBC 267 ug/dL 131-42 5 Not Available [facility] ([facility]) [address] [place], [address], 11/24/2023 12:36:03 11/22/19 24 11/23/2023 FE+TI BC+FE R iron 56 ug/dL 27-159 Not Available [facility] ([facility]) [address] [place], [address], 11/24/2023 12:36:03 11/22/19 24 11/23/2023 FE+TI BC+FE R iron saturation 17 % 15-55 Not Available [facility] ([facility]) [address] [place], [address], 11/24/2023 12:36:03 11/22/19 24 11/23/2023 FE+TI BC+FE R ferritin 21 NG/mL 15-150 Not Available [facility] ([facility]) [address] [place], [address], 11/24/2023 12:36:03 06/24/20 24 06/25/2024 LIPID PANEL cholesterol, total 258 mg/dL 100-19 9 above high normal Not Available [facility] ([facility]) [address] [place], [address], 06/25/2024 11:16:59 06/24/20 24 06/25/2024 LIPID PANEL triglyceride s 210 mg/dL 0-149 above high normal Not Available [facility] ([facility]) [address] [place], [address], 06/25/2024 11:16:59 06/24/20 24 06/25/2024 LIPID PANEL HDL cholesterol 54 mg/dL >39 Not Available [facility] ([facility]) [address] [facility], [place], [address], 06/25/2024 11:16:59 06/24/20 24 06/25/2024 LIPID PANEL VLDL cholesterol anish 39 mg/dL 5-40 Not Available [facility] ([facility]) [address] [place], [address], 06/25/2024 11:16:59 06/24/20 24 06/25/2024 LIPID PANEL LDL chol calc ([facility]) 165 mg/dL 0-99 above high normal Not Available [facility] ([facility]) [address] [place], [address], 06/25/2024 11:16:59 06/24/20 24 06/25/2024 COMP. METAB OLIC PANEL (14) glucose 134 mg/dL 70-99 above high normal Not Available [facility] ([facility]) [address] [place], [address], 06/25/2024 11:17:00 06/24/20 24 06/25/2024 COMP. METAB OLIC PANEL (14) BUN 17 mg/dL 6-24 Not Available [facility] ([facility]) [address] [place], [address], 06/25/2024 11:17:00 06/24/20 24 06/25/2024 COMP. METAB OLIC PANEL (14) creatinine 0.64 mg/dL 0.57-1 .00 Not Available [facility] ([facility]) [address] [place], [address], 06/25/2024 11:17:00 06/24/20 24 06/25/2024 COMP. METAB OLIC PANEL (14) eGFR 107 mL/mi n/1.7 3 >59 Not Available [facility] ([facility]) [address] [place], [address], 06/25/2024 11:17:00 06/24/20 24 06/25/2024 COMP. METAB OLIC PANEL (14) BUN/creatini ne ratio 27 9-23 above high normal Not Available [facility] ([facility]) [address] [facility], [place], [address], 06/25/2024 11:17:00 06/24/20 24 06/25/2024 COMP. METAB OLIC PANEL (14) sodium 137 mmol/ L 134-14 4 Not Available [facility] ([facility]) [address] [place] [place], [address], 06/25/2024 11:17:00 06/24/20 24 06/25/2024 COMP. METAB OLIC PANEL (14) potassium 4.1 mmol/ L 3.5-5. 2 Not Available [facility] ([facility]) [address] [place], [address], 06/25/2024 11:17:00 06/24/20 24 06/25/2024 COMP. METAB OLIC PANEL (14) chloride 100 mmol/ L 96-106 Not Available [facility] ([facility]) [address] [place], [address], 06/25/2024 11:17:00 06/24/20 24 06/25/2024 COMP. METAB OLIC PANEL (14) carbon dioxide, total 25 mmol/ L 20-29 Not Available [facility] ([facility]) [address] [place], [address], 06/25/2024 11:17:00 06/24/20 24 06/25/2024 COMP. METAB OLIC PANEL (14) calcium 9.2 mg/dL 8.7-10 .2 Not Available [facility] ([facility]) [address] [place], [address], 06/25/2024 11:17:00 06/24/20 24 06/25/2024 COMP. METAB OLIC PANEL (14) protein, total 6.5 g/dL 6.0-8. 5 Not Available [facility] ([facility]) [address] [place] [place], [address], 06/25/2024 11:17:00 06/24/20 24 06/25/2024 COMP. METAB OLIC PANEL (14) albumin 4.2 g/dL 3.8-4. 9 Not Available [facility] ([facility]) [address] [place], [address], 06/25/2024 11:17:00 06/24/20 24 06/25/2024 COMP. METAB OLIC PANEL (14) globulin, total 2.3 g/dL 1.5-4. 5 Not Available [facility] ([facility]) [address] [place], [address], 06/25/2024 11:17:00 06/24/20 24 06/25/2024 COMP. METAB OLIC PANEL (14) bilirubin, total 0.2 mg/dL 0.0-1. 2 Not Available [facility] ([facility]) [address] [place], [address], 06/25/2024 11:17:00 06/24/20 24 06/25/2024 COMP. METAB OLIC PANEL (14) alkaline phosphatase 86 IU/L 44-121 Not Available [facility]) [address] [place], [address], 06/25/2024 11:17:00 06/24/20 24 06/25/2024 COMP. METAB OLIC PANEL (14) AST (SGOT) 22 IU/L 0-40 Not Available [facility] ([facility]) [address] [place], [address], 06/25/2024 11:17:00 06/24/20 24 06/25/2024 COMP. METAB OLIC PANEL (14) ALT (SGPT) 20 IU/L 0-32 Not Available [facility] ([facility]) [address] [facility], [place], [address], 06/25/2024 11:17:00 06/24/2006/25/2024 HEMOG LOBIN A1C hemoglobin A1C 6.3 % 4.8-5. 6 above high normal Predi abete s: 5.7 - 6.4 Diabe amanda: >6.4 Glyce arturo contr ol for adult s with diabe amanda: <7.0 Not Available [facility] ([facility]) [address] [facility], [place], [address], 06/25/2024 11:17:01 06/24/2006/25/2024 INSUL IN insulin 129.0 uIU/m L 2.6-24 .9 above high normal Not Available [facility] ([facility]) [address] [facility], [place], [address], 06/25/2024 11:17:02 06/24/20 24 06/25/2024 CBC WITH DIFFE RENTI AL/PL ATELE T WBC 7.1 x10e3 /uL 3.4-10 .8 Not Available [facility] ([facility]) [address] [facility], [place], [address], 06/25/2024 11:17:04 06/24/20 24 06/25/2024 CBC WITH DIFFE RENTI AL/PL ATELE T RBC 4.28 x10e6 /uL 3.77-5 .28 Not Available [facility] ([facility]) [address] [place], [address], 06/25/2024 11:17:04 06/24/20 24 06/25/2024 CBC WITH DIFFE RENTI AL/PL ATELE T hemoglobin 12.6 g/dL 11.1-1 5.9 Not Available [facility] ([facility]) [address] [place], [address], 06/25/2024 11:17:04 06/24/20 24 06/25/2024 CBC WITH DIFFE RENTI AL/PL ATELE T hematocrit 38.7 % 34.0-4 6.6 Not Available [facility] ([facility]) [address] [facility], [place], [address], 06/25/2024 11:17:04 06/24/20 24 06/25/2024 CBC WITH DIFFE RENTI AL/PL ATELE T MCV 90 fL 79-97 Not Available [facility] ([facility]) [address] [facility], [place], [address], 06/25/2024 11:17:04 06/24/20 24 06/25/2024 CBC WITH DIFFE RENTI AL/PL ATELE T MCH 29.4 pg 26.6-3 3.0 Not Available [facility] ([facility]) [address] [facility], [place], [address], 06/25/2024 11:17:04 06/24/20 24 06/25/2024 CBC WITH DIFFE RENTI AL/PL ATELE T MCHC 32.6 g/dL 31.5-3 5.7 Not Available [facility] ([facility]) [address] [facility], [place], [address], 06/25/2024 11:17:04 06/24/20 24 06/25/2024 CBC WITH DIFFE RENTI AL/PL ATELE T RDW 13.5 % 11.7-1 5.4 Not Available [facility] ([facility]) [address] [facility], [place], [address], 06/25/2024 11:17:04 06/24/20 24 06/25/2024 CBC WITH DIFFE RENTI AL/PL ATELE T platelets 290 x10e3 /uL 150-45 0 Not Available [facility] ([facility]) [address] [facility], [place], [address], 06/25/2024 11:17:04 06/24/20 24 06/25/2024 CBC WITH DIFFE RENTI AL/PL ATELE T neutrophils 68 % notest ab. Not Available [facility] ([facility]) [address] [facility], [place], [address], 06/25/2024 11:17:04 06/24/20 24 06/25/2024 CBC WITH DIFFE RENTI AL/PL ATELE T lymphs 23 % notest ab. Not Available [facility] ([facility]) [address] [facility], [place], [address], 06/25/2024 11:17:04 06/24/20 24 06/25/2024 CBC WITH DIFFE RENTI AL/PL ATELE T monocytes 6 % notest ab. Not Available [facility] ([facility]) [address] [facility], [place], [address], 06/25/2024 11:17:04 06/24/20 24 06/25/2024 CBC WITH DIFFE RENTI AL/PL ATELE T eos 2 % notest ab. Not Available [facility] ([facility]) [address] [place], [address], 06/25/2024 11:17:04 06/24/20 24 06/25/2024 CBC WITH DIFFE RENTI AL/PL ATELE T basos 1 % notest ab. Not Available [facility] ([facility]) [address] [facility], [place], [address], 06/25/2024 11:17:04 06/24/20 24 06/25/2024 CBC WITH DIFFE RENTI AL/PL ATELE T neutrophils (absolute) 4.8 x10e3 /uL 1.4-7. 0 Not Available [facility] ([facility]) [address] [facility], [place], [address], 06/25/2024 11:17:04 06/24/20 24 06/25/2024 CBC WITH DIFFE RENTI AL/PL ATELE T lymphs (absolute) 1.6 x10e3 /uL 0.7-3. 1 Not Available [facility] ([facility]) [address] [facility], [place], [address], 06/25/2024 11:17:04 06/24/20 24 06/25/2024 CBC WITH DIFFE RENTI AL/PL ATELE T monocytes(ab solute) 0.4 x10e3 /uL 0.1-0. 9 Not Available [facility] ([facility]) [address] [facility], [place], [address], 06/25/2024 11:17:04 06/24/20 24 06/25/2024 CBC WITH DIFFE RENTI AL/PL ATELE T eos (absolute) 0.1 x10e3 /uL 0.0-0. 4 Not Available [facility] ([facility]) [address] [facility], [place], [address], 06/25/2024 11:17:04 06/24/20 24 06/25/2024 CBC WITH DIFFE RENTI AL/PL ATELE T baso (absolute) 0.1 x10e3 /uL 0.0-0. 2 Not Available [facility] ([facility]) [address] [facility], [place], [address], 06/25/2024 11:17:04 06/24/20 24 06/25/2024 CBC WITH DIFFE RENTI AL/PL ATELE T immature granulocytes 0 % notest ab. Not Available [facility] ([facility]) [address] [facility], [place], [address], 06/25/2024 11:17:04 06/24/20 24 06/25/2024 CBC WITH DIFFE RENTI AL/PL ATELE T immature grans (abs) 0.0 x10e3 /uL 0.0-0. 1 Not Available [facility] ([facility]) [address] [facility], [place], [address], 06/25/2024 11:17:04 06/24/20 24 06/25/2024 FE+TI BC+FE R iron bind.cap.(TI BC) 348 ug/dL 250-45 0 Not Available [facility] ([facility]) [address] [facility], [place], [address], 06/25/2024 11:17:05 06/24/20 24 06/25/2024 FE+TI BC+FE R UIBC 283 ug/dL 131-42 5 Not Available [facility] ([facility]) [address] [facility], [place], [address], 06/25/2024 11:17:05 06/24/2006/25/2024 FE+TI BC+FE R iron 65 ug/dL 27-159 Not Available [facility] ([facility]) [address] [facility], [place], [address], 06/25/2024 11:17:05 06/24/20 24 06/25/2024 FE+TI BC+FE R iron saturation 19 % 15-55 Not Available [facility] ([facility]) [address] [facility], [place], [address], 06/25/2024 11:17:05 06/24/20 24 06/25/2024 FE+TI BC+FE R ferritin 28 NG/mL 15-150 Not Available [facility] ([facility]) [address] [facility], [place], [address], 06/25/2024 11:17:05 11/20/19 24 11/20/2023 XR, chest , 2 view No observ ation record ed. [email or web address] [facility] [address], [place], [address], 11/27/2023 12:07:11 02/27/20 24 02/17/2024 PFT, compl ete No observ ation record ed. BARCODE Not Available 2023 15:02:07 08/02/20 24 08/02/2024 XR, chest , 2 view No observ ation record ed. [email or web address] [address] [facility], [place], [address], 08/02/2024 12:44:04 08/13/19 25 08/13/2024 XR, chest , 2 view No observ ation record ed. [email or web address] [facility] [address], [place], [address], 08/13/2024 14:01:09 Result Notes None recorded. Problems Name Problem SNOMED Code Status Onset Date Resolution Date Notes Provider Name and Address Organization Details Recorded Time Obesity 503027579 Active 2023 NOLAN Conner Attn: Danny vivar,[address] [facility], [place], [address], [place] - [facility] 4 15:41:47 Benign essential hypertension 8182883 Active 2023 NOLAN Conner Attn: Danny g,[address] [facility], [place], [address], [place] [facility] 4 21:40:31 Depressive disorder 03020007 Active 2023 NOLAN Conner Attn: Danny g,[address] [facility], [place], [address], [place] [facility] 4 21:40:34 History of anemia 777194926 Active 2023 NOLAN Conner Attn: Danny g,[address] [facility], [place], [address], [place] [facility] 4 21:40:36 Long-term drug therapy Active 2023 NOLAN Conner Attn: Danny g,[address] [facility], [place], [address], [place] [facility] 4 21:40:37 Body mass index 30+ - obesity 739314405 Active 2023 NOLAN Conner Attn: Danny g,[address] [place], [address], [facility] 4 21:40:42 Hyperlipidemia 07361024 Active 2023 NOLAN Conner Attn: Danny vivar,[address], [place], [address], [facility] - [facility] 4 16:48:01 Type 2 diabetes mellitus 46749987 Active 2024 NOLAN Conner Attn: Danny vivar,[address], [place], [address], [facility] 5 13:24:11 Problem Notes None recorded. Procedures Surgical History Date Name Laterality Status Provider Name and Address Organization Details Recorded Time excision of bilateral fallopian tubes and ovaries completed Lavonne Cardoza [place] [facility] 11/20/2023 17:23:19 Imaging Results Imaging Date Name Status LastModified by Organiz ation Details LastModified Time 11/20/2023 XR, chest, 2 view completed [address] [facility] [address] [place] [address] [address], [place], [address], 11/27/2023 12:07:11 02/17/2024 PFT, complete completed [facility] Information not available 02/27/2024 15:02:07 08/02/2024 XR, chest, 2 view completed [address] , [place], [address], 08/02/2024 12:44:04 08/13/2024 XR, chest, 2 view completed [address], [place], [address], 08/13/2024 14:01:09 Procedure Notes None recorded. Medical Equipment None Reported. Allergies Allergen ID Allergen Name Allergen Category Reaction Reaction Severity Criticality Documentation Date Start Date Code Code System Note Provider Name and Address Organization Details Recorded Time 544440 Product containin g penicilli n and antibioti c (product) medicatio n Not available Not available Not available 11/20/2023 84057 05 SNOMED Not Available Not Available Not Available Medications Name Sig Start Date Stop Date Status Note LastModified by Organization Details LastModified Time Prescriptio n - Prior Authorizati on Request active Not Available Not Available N ot Available prednisone 10 mg tablet active Not Available Not Available Not Available doxycycline hyclate 100 mg capsule Take 1 capsule twice a day by oral route. 09/09 completed Not Available Not Available Not Available albuterol sulfate 2.5 mg/3 mL (0.083 %) solution for nebulizatio n active Not Available Not Available Not Available azithromyci n 250 mg tablet TAKE 2 TABLETS (500 MG) BY ORAL ROUTE ONCE DAILY FOR 1 DAY THEN 1 TABLET (250 MG) BY ORAL ROUTE ONCE DAILY FOR 4 DAYS 09/09 completed Not Available Not Available Not Available benzonatate 200 mg capsule 04/09 completed Not Available Not Available Not Available meloxicam 15 mg tablet active prn Not Available Not Available Not Available prednisone 20 mg tablet Take 2 tablets every day by oral route for 5 days. 08/06 completed Not Available Not Available Not Available sertraline 100 mg tablet Take 2 tablets every day by oral route. active Not Available Not Available No t Available alprazolam 0.25 mg tablet active Not Available Not Available Not Available triamcinolo ne acetonide 55 mcg nasal spray aerosol active Not Available Not Available Not Available codeine 10 mg-guaifene sin 100 mg/5 mL oral liquid Take 10 mL every 4-6 hours by oral route as needed. 09/09 completed Not Available Not Available Not Available ergocalcife rol (vitamin D2) 1,250 mcg (50,000 unit) capsule 04/09 completed Not Available Not Available Not Available azelastine 137 mcg (0.1 %) nasal spray active Not Available Not Available Not Available lisinopril 10 mg-hydrochl orothiazide 12.5 mg tablet Take 1 tablet every day by oral route. active Not Available Not Available No t Available methylpredn isolone 4 mg tablets in a dose pack 12/23 completed Not Available Not Available Not Available hydrocodone 10 mg-chlorphe niramine 8 mg/5 mL oral susp extend.rel 12hr Take 5 mL every 12 hours by oral route. 12/23 completed Not Available Not Available Not Available albuterol sulfate HFA 90 mcg/actuati on aerosol inhaler active Not Available Not Available Not Available cefdinir 300 mg capsule Take 1 capsule every 12 hours by oral route. 08/06 completed Not Available Not Available Not Available fluticasone propionate 110 mcg/actuati on HFA aerosol inhaler Inhale by inhalatio n route for 30 days. active Not Available Not Available No t Available ciprofloxac in 0.3 %-dexametha sone 0.1 % ear drops,suspe nsion INSTILL 4 DROPS INTO AFFECTED EAR(S) BY OTIC ROUTE 2 TIMES PER DAY FOR 7 DAYS 06/01 completed Not Available Not Available Not Available rosuvastati n 10 mg tablet Take 1 tablet every day by oral route in the evening, for cholester ol. active Not Available Not Available No t Available bupropion HCl XL 300 mg 24 hr tablet, extended release Take 1 tablet every day by oral route. 06/01 completed Not Available Not Available Not Available bupropion HCl XL 150 mg 24 hr tablet, extended release Take 1 tablet every day by oral route. active Not Available Not Available No t Available Pulmicort Flexhaler 180 mcg/actuati on breath activated Inhale 1 puff twice a day by inhalatio n route. active Not Available Not Available No t Available vitamin D3 1,250 mcg (50,000 unit)-vitam in K2 200 mcg capsule Take by oral route. active Not Available Not Available No t Available Mounjaro 7.5 mg/0.5 mL subcutaneou s pen injector Inject by subcutane ous route for 28 days. active Not Available Not Available No t Available Mounjaro 5 mg/0.5 mL subcutaneou s pen injector Inject 5 mg every week by subcutane ous route. active Not Available Not Available No t Available Mounjaro 2.5 mg/0.5 mL subcutaneou s pen injector Inject 2.5 mg every week by subcutane ous route, for diabetes. 07/15 completed Not Available Not Available Not Available Zepbound 2.5 mg/0.5 mL subcutaneou s pen injector Inject 2.5 mg every week by subcutane ous route. 06/28 completed Not Available Not Available Not Available Vitals Date Recorded Body height Body mass index (BMI) Body weight Respiratory rate Oxygen saturation Oxygen saturation in Arterial blood by Pulse oximetry Heart rate Systolic blood pressure Diastolic blood pressure Provider Name and Address Organization Details Last Updated DateTime 4 165.1 cm 38.6 kg/m2 464903. 43 g 20 /min 98 % 98 % 88 /min 132 mm[Hg] 82 mm[Hg] Lavonne Cardoza MA [facility] 4 15:11:51 Date Recorded Systolic blood pressure Diastolic blood pressure Provider Name and Address Organization Details Last Updated DateTime 11/20/2023 110 mm[Hg] 80 mm[Hg] NOLAN Conner Attn: Accounting,[address] [place], [address], [facility] 11/20/2023 15:48:43 Date Recorded Body height Body mass index (BMI) Body weight Respiratory rate Oxygen saturation Oxygen saturation in Arterial blood by Pulse oximetry Heart rate Systolic blood pressure Diastolic blood pressure Provider Name and Address Organization Details Last Updated DateTime 4 165.1 cm 38.8 kg/m2 638953. 02 g 20 /min 99 % 99 % 86 /min 126 mm[Hg] 82 mm[Hg] Lavonne Cardoza MA [facility] 4 12:41:14 Date Recorded Systolic blood pressure Diastolic blood pressure Provider Name and Address Organization Details Last Updated DateTime 04/09/2024 110 mm[Hg] 82 mm[Hg] NOLAN Conner Attn: Accounting[address] [place], [address], [facility] 04/09/2024 12:52:51 Date Recorded Body height Respiratory rate Body mass index (BMI) Body weight Systolic blood pressure Diastolic blood pressure Provider Name and Address Organization Details Last Updated DateTime 4 165.1 cm 20 /min 38.3 kg/m2 287113. 25 g 116 mm[Hg] 62 mm[Hg] Lavonne Cardoza MA [facility] 4 09:24:26 Date Recorded Body height Body mass index (BMI) Body weight Oxygen saturation Oxygen saturation in Arterial blood by Pulse oximetry Heart rate Systolic blood pressure Diastolic blood pressure Provider Name and Address Organization Details Last Updated DateTime 4 165.1 cm 39.4 kg/m2 842083. 03 g 97 % 97 % 76 /min 126 mm[Hg] 82 mm[Hg] Deanna Reeves [place] [facility] 16:44:13 Social History Question Answer Notes LastModified by Organizat ion Details LastModified Time Tobacco Smoking Status Former Smoker quit 22 years ago Lavonne Cardoza MA null, [place] [facility] 11/20/2023 15:09:48 Do You Have An Advance Directive? No Information not available 04/09/2024 What Is Your Level Of Alcohol Consumption? None Information not available 11/20/2023 Are You Blind Or Do You Have Difficulty Seeing? No Glasses Information not available 11/20/2023 What Is Your Level Of Caffeine Consumption? None Information not available 11/20/2023 In The 14 Days Before Symptom Onset, Have You Had Close Contact With A Laboratory-confir med COVID-19 While That Case Was Ill? No Information not available 11/20/2023 In The 14 Days Before Symptom Onset, Have You Had Close Contact With A Person Who Is Under Investigation For COVID-19 While That Person Was Ill? No Information not available 11/20/2023 Have You Been To An Area Known To Be High Risk For COVID-19? No Information not available 11/20/2023 Are You Deaf Or Do You Have Serious Difficulty Hearing? No Information not available 11/20/2023 What Type Of Diet Are You Following? REGULAR Information not available 11/20/2023 Are There Any Guns Present In Your Home? No Information not available 11/20/2023 What Was The Date Of Your Most Recent Tobacco Screening? 06/01/2024 crevisma Information not available 06/01/2024 What Is Your Current Pack Years? 20-packyea rs Information not available 11/20/2023 What Is Your Relationship Status? Information not available 04/09/2024 Do You Use Your Seat Belt Or Car Seat Routinely? Yes Information not available 11/20/2023 Do You Have Smoke And Carbon Monoxide Detectors In Your Home? Yes Information not available 11/20/2023 At What Age Did You Start Smoking Tobacco? 11 Information not available 11/20/2023 Do You Use Any Illicit Or Recreational Drugs? No Information not available 11/20/2023 Do You Use Sunscreen Routinely? Yes Information not available 11/20/2023 Has Tobacco Cessation Counseling Been Provided? No Information not available 11/20/2023 Do You Or Have You Ever Used Any Other Forms Of Tobacco Or Nicotine? No Information not available 11/20/2023 Sex: Unknown Functional Status Question Answer Note LastModified by Organization D etails LastModified Time Are you able to care for yourself? Yes Information n ot available 11/20/2023 What is your exercise level? None Information not available 11/20/2023 Mental Status None recorded. Family History Relationship Description Onset Age of this Age Resolved Age Notes LastModified by Organization Details LastModified Time Brother Alcohol abuse [email or web address] Not available 2023 17:23:33 Brother Attention deficit hyperactivit y disorder [email or web address] Not available 11/19 17:23:38 Brother Hypertensive disorder [email or web address] Not available 2023 17:23:49 Mother Hypertensive disorder [email or web address] Not available 2023 17:23:49 Father Hypertensive disorder tcarterma Not available 2023 17:23:49 Sister Migraine [email or web address] Not availabl e 11/20/2023 17:23:54 Medical History Condition Response Coronary Artery Disease N Other N Atrial Fibrillation N High Blood Pressure Y Depression Y COPD N Blood Clots N Anxiety Disorder Y Muscle, Joint, or Bone Problems N Acid Reflux (GERD) N Cancer N Stroke N High Cholesterol N Liver Disease N Headaches N Thyroid Problems N Kidney or Bladder Problems N GI Problems N Skin Problems N Anemia N Heart Attack (OK) N Diabetes N Seizures/Epilepsy N Asthma N Allergies N Hepatitis N Osteoporosis N Heart Failure N Gynecological History Statement/Question Response Menses Monthly N Current Control Method Menopause Obstetrics History GPAL:G 2 P 2 0 0 2 Type Value Full Term 2 Induced 0 Spontaneous 0 Premature 0 Living 2 Total 2 Past Encounters Encounter ID Performer Location Encounter Start Date Encounter Closed Date Diagnosis/Indication Diagnosis SNOMED-CT Code Diagnosis ICD10 Code Diagnosis Note [id number] NOLAN Conner [facility] [place] [address] [place] [address] 11/20/2023 14:58:42 11/20/2023 16:29:25 Cough 52600668 R05.9 check CXR and then start zpack and tussionex syrup as directed Weight gain 3661207 R63. 5 check fasting insulin lab with weight gain concerns. History of anemia 089092 002 Z86.2 hx of anemia reported. check cbc, b12, folate and iron studies. Long-term drug therapy 279709127 Z79.899 routine cmp lab ordered Benign ess ential hypertension 8646810 I10 very stable on lisinopril hctz 10/12.5mg daily. Depressive disorder 3548 9007 F32.A refill on sertraline 100mg two daily; and refill bupropion XL 300mg daily. stable on regimen. Cholesterol screening 27 4224488 Z13.220 fasting lipids ordered Prediabetes 530712884 R7 3.03 hx of prediabete s reported. screening a1c ordered. 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 [id number] NOLAN Conner [facility] [place] [address] [place] [address] 04/09/2024 12:30:34 04/09/2024 12:59:06 Acute right otitis media 890002851 H66.91 Start cefdinir 300 mg twice daily x7 days [id number] ONLAN Conner [facility] [place] [address] [place] [address] 05/07/2024 09:11:59 05/07/2024 10:26:37 Dysfunction of bilateral eustachian tubes 1183416396 173858 H69.93 Start Medrol Dosepak. Continue antihistam ine and nasal spray [id number] NOLAN Conner [facility] [place] [address] [place] [address] 06/01/2024 16:38:39 06/01/2024 17:17:22 Benign essential hypertension 2897966 I10 very stable on lisinopril hctz 10/12.5mg daily. Medication refilled Prediabetes 529381684 R7 3.03 hx of prediabete s with A1c 6% asked reported. screening a1c ordered. Depressive disorder 3548 9007 F32.A refill on sertraline 100mg two daily; and decrease wellbutrin XL to 150mg daily, as she would to taper off. History of anemia 478288 002 Z86.2 hx of anemia reported. check cbc, b12, folate and iron studies. Long-term drug therapy 974608813 Z79.899 routine cmp lab ordered Obesity 502552944 E66.9 discussed healthy diet, exercise, controllin g carbohydra amanda and added sugars in the diet Body mass index 30+ - obesity 320456580 Z68.39 BMI is 39.4.. Check fasting insulin on labs. Patient would like to start zepbound injectable therapy. no personal or family hx of Medullary thyroid cancer or MEN conditions . Hyperlipidemia 27334844 E78.5 Fasting lipid panel ordered, history of hyperlipid emia with diet and exercise management Adult [facility] th examination 028188113 Z00.01 annual wellness completed Health Concerns Section Related Observation LastModified by Organization Detai ls LastModified Time None Recorded Concern Status LastModified by Organization Details LastModified Time None Recorded Advance Directives Directive N: Payers Encounter Date Sequence Insurance Name Policy Number Policy Figueroa Covered Member ID Figueroa Member ID Guarantor Name 11/20/2023 1 [employer] - CHOICE (POS II) [id number] Katie Greeneailin [id number] Katie Greeneailin 04/09/2024 1 [place] [id number] Katie Greeneailin [id number] Katie Greeneailin 05/07/2024 1 [place] [id number] Katie Jara [id number] Katie Jara 06/01/2024 1 [facility]: (MWN) [id number] Katie Jara [id number] Katie Jara Notes Date Note Type Note Provider Name and Address Organization Details Recorded Time 11/20/2023 text/html Anxiety/Depressi o nReported bypatient.Notes:s table on sertraline 200mg daily. no complaints.CoughR eported bypatient.Quality :harsh;barking Severity:worsenin g; moderate Duration:symptoms lasting over 2 weeks Timing:worse Context:non-smoke r Associated Symptoms:no fever; no chills; no chest pain; no heartburn; no nausea; no vomiting; no edema; no agitation; no post nasal drip;wheezingNote s:last saturday steroids (2pills twice day x 5 days) and inhaler, and this past saturday went again and they gave tessalon perles. albuterol inhaler also being used during this time. Not much drainage. Little productive nature. No chest xray has been completed.Hyperte nsionReported bypatient.Notes:s table on medication lisinopril hctz 10/12.5mg daily. NOLAN Conner Attn: Accounting,[address] [place], [address], [facility] 12/09/2023 21:40:48 04/09/2024 text/html Pt, states that she has been having some ear pain for about a week or so no drainage , states that she does have a sore throat starting today. There is no ear drainage and hearing is slightly muffled. There was no injury. 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 There is no ear drainage and hearing is slightly muffled. There was no injury. 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, [place], [address], [facility] 05/12/2024 00:32:36 06/01/2024 text/html Anxiety/Depressi o nReported bypatient.Notes:s table on sertraline 200mg daily. no complaints.Hypert ensionReported bypatient.Notes:s table on medication lisinopril hctz 10/12.5mg daily. NOLAN Conner Attn: Accounting,[address] [facility], [place], [address], [facility] 06/14/2024 19:10:27 OBGyn Episode No OBEpisode recorded.
--- OUTSIDE RECORDS SUMMARY | 2024-09-26 19:18 | XMS_ITS | Patient Health Summary ---
Author Organization [facility] Address [address] [place] [address] Care Team Providers Care Teleprinter Installer Name Role Phone Kelvin Tam DO Primary Care Provider [phone] Note from [facility],non-owned Affiliates and Associated Physician Practices is amultiple site organization consisting of ambulatory clinics and hospital sitesin [place], [place], [place] and [place]. This disclosure is being madepursuant to the Care Everywhere program and may not contain all information available regarding this patient. Last updated 18.[facility] Allergies * Penicillins(Rash) -Medium Criticality Medications * Be aware that medications may not be up to date on this document. Alwaysverify current medications with the patient. * Sertraline HCl (ZOLOFT PO) * LISINOPRIL PO * azithromycin (ZITHROMAX) 250 MG tablet(Started 09/28/2019) Take 2 tabs today, then 1 tab daily for next 4 days Social History Tobacco Use Types Packs/Day Years [...] Comments Blood Pressure 146/92 09/28/2019 12:38 PM PT SKILLED Pulse 124 09/28/2019 12:38 PM PT SKILLED Temperature 39.1 C (102.4 F) 09/28/2019 12:38 PM PT SKILLED Respiratory Rate 16 09/28/2019 12:38 PM PT SKILLED Oxygen Saturation 98% 09/28/2019 12:38 PM PT SKILLED Inhaled Oxygen Concentration - - Weight 90.7 kg (200 lb) 09/28/2019 12:38 PM PT SKILLED Height 165.1 cm (5' 5 ) 09/28/2019 12:38 PM PT SKILLED Body Mass Index 33.28 09/28/2019 12:38 PM PT SKILLED Procedures * DERMATOPATHOLOGY(Performed 11/27/2021) * STREP A SCREEN - POINT OF CARE (AMB) STL(Performed 09/28/2019) Performed for Exposure to the flu * INFLUENZA A+B - POINT OF CARE (AMB)(Performed 09/28/2019) Performed for Exposure to the flu * CULTURE URINE(Performed 06/27/2019) Performed for Acute cystitis with hematuria * URINALYSIS AUTO - POINT OF CARE (AMB) STL(Performed 06/27/2019) Performed for Acute cystitis with hematuria Results * DERMATOPATHOLOGY (11/27/2021 12:00 AM CDT) Case Report Dermatopathology Report Case: [id number] Authorizing Provider: Mini Moya DO Collected: 11/27/2021 12:00 AM Ordering Location: [facility] Lab Received: 11/28/2021 08:26 AM Pathologist: Tamika Argueta MD Specimens: A) - Skin, chin B) - Skin, right hand C) - Skin, right upper back 2 5:29 PM CDT DERMATOPATHOLOGY LABORATORY Final Diagnosis Specimen A. SKIN, chin: INTRADERMAL MELANOCYTIC NEVUS (D22.30) Specimen B. SKIN, right hand: BLUE NEVUS, COMMON TYPE (D22.9) Specimen C. SKIN, right upper back: COMPOUND NEVUS WITH CONGENITAL FEATURES (D22.5) POST-INFLAMMATORY PIGMENT ALTERATION (L81.9) 2 5:29 PM CDT DERMATOPATHOLOGY LABORATORY Clinical History A: Milia R/o atypia B: Blue nevus R/O atypia C: Lent R/O atypia 2 5:29 PM CDT DERMATOPATHOLOGY LABORATORY Gross Description Specimen A: Received is one formalin filled container labeled with the patient's name and designated chin. The specimen consists of a shave biopsy measuring 3x3x1 mm. Jar 0. Specimen B: Received is one formalin filled container labeled with the patient's name and designated right hand. The specimen consists of a shave biopsy measuring 6x4x1 mm. Jar 0. Specimen C: Received is one formalin filled container labeled with the patient's name and designated right upper back. The specimen consists of a shave biopsy measuring 6x6x1 mm. Jar 0. 2 5:29 PM T DERMATOPATHOLOGY LABORATORY Microscopic Description Specimen A. SKIN, chin: There are nests of cytologically bland melanocytes within the dermis that mature with depth. Specimen B. SKIN, right hand: Within the dermis there are oval, spindle-shaped and dendritic melanocytes with melanophages. Specimen C. SKIN, right upper back: There are nests of melanocytes at the dermal-epidermal junction and within the dermis. Some melanocytes are splayed between collagen bundles and are localized around adnexal structures. Sections show abundant melanin within melanophages around the superficial vascular plexus. 2 5:29 PM T DERMATOPATHOLOGY LABORATORY Disclaimer An external and internal positive and negative controls are appropriate for the histochemical, immunohistochemical and immunofluorescence stain(s) in this case (if any), except where stated explicitly. The performance characteristics of the stain(s) cited in this report were developed and its performance characteristic determined by the Dermatopathology Laboratory at [facility], directed by Dr. Jj Jeronimo. These tests need not be, and therefore are not, approved by the [place] Food and Drug Administration. The tests are used for clinical purposes. Billing Codes Specimen Charges Stain Charges 39030 36321 [id number] 1 1 1 2 5:29 PM CDT DERMATOPATHOLOGY LABORATORY Embedded Images 2 5:29 PM CDT DERMATOPATHOLOGY LABORATORY Pathology/Cytology TISSUE SPECIMEN FROM SKIN / Unknown 11/27/2021 11/28/2021 8:26 AM CDT Miscellaneous samples (specimen) TISSUE SPECIMEN FROM SKIN / Unknown 11/27/2021 11/28/2021 8:26 AM CDT Miscellaneous samples (specimen) TISSUE SPECIMEN FROM SKIN / Unknown 11/27/2021 11/28/2021 8:26 AM CDT Mini Moya DO LAB - PATHOLOGY/C YTOLOGY ORDERABLES DERMATOPATHOLOGY LABORATORY [facility] - Department of Dermatology [address], [address] [phone] * STREP A SCREEN - POINT OF CARE (AMB) STL (09/28/2019 12:51 PM PT SKILLED) Strep A Rapid POCT Negative Negative Strep A Internal Control Present Lot # [id number] Expiration Date 01 09 2021 Throat ENTIRE THROAT (SURFACE REGION OF NECK) / Unknown 09/28/2019 12:51 PM PT SKILLED Nuha Dyer APRN-[employer] [facility] LAB - POINT OF CA RE ORDERABLES * INFLUENZA A+B - POINT OF CARE (AMB) (09/28/2019 12:51 PM PT SKILLED) Influenza A Antigen Rapid Negative Negative Influenza B Antigen Rapid Negative Negative Influenza Internal Control present NEGATIVE - POSITIVE Influenza Lot Number [id number] Influenza Expiration Date 05 26 2021 Other NASOPHARYNGEAL SWAB / Unknown 09/28/2019 12:51 PM PT SKILLED Nuha Dyer APRN-[facility] LAB - POINT OF CA RE ORDERABLES * (ABNORMAL) CULTURE URINE (06/27/2019 12:48 PM PT SKILLED) Urine Culture Routine Final report(A) [facility] ACCOUNT BILL Result 1 Enterococcus faecalis(A) [facility] ACCOUNT BILL Comment: 25,000-50,000 colony forming units per mL Note: this isolate is vancomycin-susceptible. This information is provided for epidemiologic purposes only: vancomycin is not among the antibiotics recommended for therapy of urinary tract infections caused by Enterococcus. For Enterococcus species, aminoglycosides (except for high-level resistance screening), cephalosporins, clindamycin, and trimethoprim-sulfamethoxazole are not effective clinically. (CLSI, W990-F34, 2016) Antimicrobial Susceptibility [facility] ACCOUNT BILL Comment: S = Susceptible; I = Intermediate; R = Resistant P = Positive; N = Negative MICS are expressed in micrograms per mL Antibiotic RSLT#1 RSLT#2 RSLT#3 RSLT#4 Ciprofloxacin S Levofloxacin S Nitrofurantoin S Penicillin S Tetracycline R Vancomycin S Urine URINE SPECIMEN OBTAINED BY CLEAN CATCH PROCEDURE / Unknown 06/27/2019 12:48 PM PT SKILLED 06/29/2019 Narrative Resulting Agency Comment Lab Testing performed at: [facility] [address] [facility] [id number] Kendra Fitzpatrick ASSOCIATE PROFESSOR-ELECTRONIC WARFARE OFFICER LAB - MICROBIOL OGY ORDERABLES [facility] ACCOUNT BILL [address] [place] [address] * URINALYSIS AUTO - POINT OF CARE (AMB) STL (06/27/2019) Clarity UA POCT clear Color UA POCT yellow Leukocyte UA 15 Negative Nitrite UA POCT neg Negative Urobilinogen UA 0.2 0.1 - 1.0 Protein UA POCT 15 Negative pH UA 6.5 5.0 - 8.0 pH units Blood UA 5-10 Negative Specific Cinebar UA POCT 1.020 1.002 - 1.030 Ketone UA neg Negative Bilirubin UA POCT neg Negative Glucose UA neg Negative Expiration Date [id number] Lot # [id number] QC Verified Yes Yes Urine URINE / Unknown 06/27/2019 Kendra Fitzpatrick APRN-[facility] [facility] LAB - POINT OF CARE ORDERABLES Care Teams Teleprinter Installer Relationship Specialty Start Date End Date Kelvin Tam DO PCP - General Internal Medicine 06/27/19
--- OUTSIDE RECORDS SUMMARY | 2024-09-26 19:18 | XMS_ITS | Referral Summary ---
Author Organization [facility] [address] Address [address] [place] [address] Care Team Providers Care Environmental Engineering Professor Name Role Phone Marylu Arnold Primary Care Pr ovider Allergies Active Allergy Reactions Criticality Noted Date Comments Penicillin G Unknown 04/18/2018 Medications sertraline (ZOLOFT) 100 mg tablet Take by mouth Active lisinopril, bulk, 100 % powder Take by mouth Active buPROPion XL (WELLBUTRIN XL) 150 mg 24 hr tablet 1 Active azithromycin (ZITHROMAX) 250 mg tablet Take 2 tabs today, then 1 tab daily for next 4 days 0 Active Rexulti 2 mg tablet 2 Active ergocalciferol (VITAMIN D) 50,000 unit capsule 2 Active lisinopril-hydro CHLOROthiazide (ZESTORETIC) 10-12.5 mg per tablet 2 Active albuterol HFA (PROVENTIL HFA,VENTOLIN HFA,PROAIR HFA) 90 mcg/actuation inhalerIndicatio ns:Wheezing Inhale 2 puffs every 6 (six) hours as needed for wheezing 1 each 4 11/11/19 25 Active benzonatate (TESSALON) 200 mg capsuleIndicatio ns:Cough, unspecified type Take 1 capsule (200 mg total) by mouth 3 (three) times a day as needed for cough keep tessalon out of reach of children, especially children under the age of 10, due to possible serious risk such as if ingested by children under the age of 10. 30 capsule 4 Active Pulmicort Flexhaler 180 mcg/actuation inhaler 4 Active doxycycline hyclate 100 mg capsule 4 Active HYDROcodone-chlo rpheniramine ER (TUSSIONEX PENNKINETIC) 2-1.6 mg/mL ER suspension 4 Active meloxicam (MOBIC) 15 mg tablet Take 1 tablet (15 mg total) by mouth daily 30 tablet 2 4 Active methylPREDNISolo ne (MEDROL DOSEPACK) 4 mg Dosepack 4 Active Active Problems Problem Noted Date Diagnosed Date Other sleep apnea 08/21/2023 Upper respiratory infection 08/21/2023 Anemia 08/12/2023 Fatigue 06/17/2023 Chest pain, unspecified 06/13/2023 Acute serous otitis media of right ear 3 Anxiety 05/29/2023 Pain of ear structure 04/16/2023 Hyperlipidemia 11/04/2022 Hypertension 11/04/2022 Insomnia 11/04/2022 Major depressive disorder 11/04/2022 Obesity 11/04/2022 Prediabetes 07/16/2022 Asymmetrical sensorineural hearing loss 05/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 22 Rectal hemorrhage 12/27/2021 Immunizations Name Administration Dates Next Due Influenza, Quadrivalent, Spl it, Preservative Free, Intramuscular 06/06/2022 Influenza, Trivalent, Preservative Free, Intramu scular 05/07/2017 Tdap 01/13/2021 Social History Tobacco Use Types Packs/Day Years Used Date Smoking Tobacco: Never Passive Smoke Exposure: Never Smokeless Tobacco: Never Tobacco Cessation:Counseling Given: Not Answered Comments Unknown Sex and Gender Information Value Date Recorded Sex Assigned at Not on file Legal Sex Female 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 Gender Identity Not on file Sexual Orientation Not on file Last Filed Vital Signs Vital Sign Reading Time Taken Comments Blood Pressure 126/89 11/16/2023 8:59 AM CDT Pulse 89 11/16/2023 8:59 AM CDT Temperature 36.9 C (98.5 F) 11/16/2023 8:59 AM CDT Respiratory Rate 20 11/16/2023 8:59 AM CDT Oxygen Saturation 96% 11/16/2023 8:59 AM CDT Inhaled Oxygen Concentration - - Weight 105.7 kg (233 lb 1.6 oz) 11/16/2023 8:59 AM CDT Height 165.1 cm (5' 5 ) 11/16/2023 8:59 AM CDT Body Mass Index 38.79 11/16/2023 8:59 AM CDT Plan of Treatment Not on file [facility] Care Teams Environmental Engineering Professor Relationship Specialty Start Date End Date Marylu Arnold PA [address] [place] [address] PCP - General Physician Gutter Mouth Cutter 05/08/24
--- OUTSIDE RECORDS SUMMARY | 2024-09-26 19:18 | XMS_ITS | Clinical Summary ---
Author Organization [facility] [address] Address [address] [place] [address] Care Team Providers Care Winch Runner Name Role Phone Marylu Arnold Primary Care [...] on file Legal Sex Female 3:55 AM RETAIL OFFICE ASSOCIATE Gender Identity Not on file Sexual Orientation Not on file Obstetrics History Last Filed Vital Signs Vital Sign Reading [...] 11/16/2023 8:59 AM CDT Plan of Treatment Health Maintenance Due Date Last Done Comments Breast Cancer Screening-Mammogram 1973 Cervical Cancer Screening 1973 Colon Cancer Screening-Colonoscopy 1973 Depression Screening 1973 Hepatitis C Screening 1973 Hepatitis B Screening 1991 Regular Well Visit/Exam 18-64 1991 Zoster Vaccine (1 of 2) 2023 Covid-19 Vaccine (3 - 2023-2 5 season) 2024 10/31/2020, 09/28/2020 Influenza Vaccine (#1) 2024 , 05/07/2017 DTaP/Tdap/Td Vaccine (2 - Td or Tdap) 01/13/2031 01/13/2021 Pneumococcal vaccine <65 Aged Out No longer eligible based on patient's age to complete this topic [place] [address] [address] [place] [address] HMO [facility] HMO [facility] Care Teams Winch Runner Relationship Specialty Start Date End Date Marylu Arnold PA [address] [place] [address] PCP - General Physician Heel Attacher 05/08/24
--- NOTE | 2024-09-26 20:54 | ED.DENTAL ---
HPI - Dental/Oral General Chief complaint: Dental/Oral Stated complaint: Abscess tooth, i need IV antibiotic Time Seen by Provider: 09/26/24 20:51 Source: patient Mode of arrival: ambulatory Limitations: no limitations History of Present Illness HPI Narrative: This is a 49-year-old female presents to the ED for chief complaint of right lower jaw pain and swelling. States that she has had swelling to the jaw as since her root canal about 1 week ago. States that her dentist has had are on multiple antibiotics over the past couple of months, totaling about 5 prescriptions. States most recent prescription was metronidazole, however dentist was concerned that she may have to go to the ER for IV antibiotics if this continues. States that the area is tender to touch and she has shooting pain throughout the face. Denies trismus, fevers, chills, nausea, vomiting, difficulty swallowing. Related Data Home Medications ?Medication ?Instructions ?Recorded ?Confirmed ?Last Taken ?Type multivitamin 1 tablet PO DAILY 08/03/19 08/14/24 Unknown History bupropion HCl 300 mg 24 hr tablet, 300 mg PO DAILY 02/06/24 08/14/24 Unknown History extended release meloxicam 15 mg tablet 15 mg PO DAILY PRN 02/06/24 08/14/24 Unknown History tirzepatide 5 mg/0.5 mL mg subcut 08/02/24 08/14/24 Unknown History subcutaneous pen injector (Mounjaro) metronidazole 500 mg tablet mg 09/26/24 Unknown History Allergies Allergy/AdvReac Type Severity Reaction Status Date / Time Penicillins Allergy Unknown Unknown Verified 09/26/24 20:52 Review of Systems Review of Systems: All systems as dictated in HPI [facility] Past Medical History Medical History Anxiety Alcohol abuse Hypertension Depression Hematochezia Surgical History Surgical History History of endometrial ablation Hx of tubal ligation Hx of foot surgery Right foot Family History Family History Father Family history of blood dyscrasia Hypertension Hyperlipidemia FH: prostate cancer Mother Hypertension Hyperthyroidism Social History Social History Smoking packs per day: 1 Smoking cigarettes per day: 20.0 Years smoked: 14 Smoking pack-years: 14.00 Smoking status: Former smoker Second hand tobacco smoke exposure: No Smoking end date: 08/12/02 Alcohol intake: current Alcohol use details: Pt drinks bi-weekly. 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 HEAD: Normocephalic, atraumatic. EYES: PERRLA and EOMI. ENT: Mild right submandibular swelling present. Floor of the mouth intact. No trismus. No focal fluctuance or induration. Skin is not erythematous. Mildly tender to touch. No involvement of the left side. No muffled voice. Nares clear, no rhinorrhea or epistaxis. Mucous membranes moist. Oropharynx without tonsillar hypertrophy exudate or other lesions. NECK: Supple. No adenopathy or masses. CHEST: No respiratory distress. Clear to auscultation. No wheezes rales or rhonchi HEART: Regular rate and rhythm. No murmur heard. Normal peripheral pulses. ABDOMEN: Soft, nontender, nondistended, normal active bowel sounds. MSK: Normal range of motion. No edema. SKIN: Warm, dry, no rash. NEURO: Alert and oriented x4. No focal deficits. PSYCH: Normal mood and affect. Course Vital Signs Vital signs: Vital Signs Temperature 98 F 09/26/24 19:18 Pulse Rate 102 H 09/26/24 19:18 Respiratory Rate 17 09/26/24 19:18 Blood Pressure 125/85 09/26/24 19:18 Pulse Oximetry 98 09/26/24 19:18 Oxygen Delivery Room Air 09/26/24 19:18 Temperature 98 F 09/26/24 19:18 Pulse Rate 102 H 09/26/24 19:18 Respiratory Rate 17 09/26/24 19:18 Blood Pressure 125/85 09/26/24 19:18 Pulse Oximetry 98 02/15/25 19:18 Oxygen Delivery Room Air 09/26/24 19:18 MDM - Dental/Oral MDM Narrative Medical decision making narrative: This is a 49-year-old female who presents to the ED for chief complaint of dental pain. She is currently receiving dental care with an cigar packing examiner. Vitals are normal. Exam shows mild swelling to the right submandibular area. She does not appear toxic and is resting comfortably. Lab work shows mildly elevated white count 13, however she has been on recent steroid pack. CRP slightly elevated. Chemistries unremarkable. CT imaging of the neck soft tissue with IV contrast shows mild inflammation in the right submandibular region. Likely postop inflammation or infection. No fluid collection. Patient was given ibuprofen here for pain control. She is also given Augmentin. Previously was thought that she had penicillin allergy, however she is unsure this. She had no reaction with Augmentin today. I do feel the Augmentin is but would most likely benefit for her if this is indeed infection amenable to antibiotics. She does not appear to have a deep space or critical infection that would require IV antibiotics today. Encouraged dental follow-up and that she will likely need to have the offending tooth pulled. Patient will be discharged in stable condition. Supportive measures discussed and return precautions given. Patient is understanding and agreeable with plan for discharge with PCP/dentist follow-up. Differential Diagnosis Differential diagnosis: Likely gingival abscess, dental caries, toothache, dental abscess, fracture of tooth and aphthous ulcer Lab Data 09/26/24 21:37 09/26/24 21:37 Labs: Lab Results 09/26/24 Range/Units 21:37 WBC 13.2 H (4.5-10.0) K/mm3 RBC 4.23 (4.2-5.4) M/mm3 Hgb 12.5 (12.0-15.0) g/dL Hct 37.9 (37.0-47.0) % MCV 89.6 (80-100) fl MCH 29.6 (26-34) pg MCHC 33.0 (32-36) g/dl RDW 14.6 H (11.5-14.5) % Plt Count 326 (150-375) k/mm3 MPV 10.1 (7.4-10.4) fl Immature Gran % (Auto) 2.0 H (0-0.5) % Neut % (Auto) 63.8 (45.5-73.1) % Lymph % (Auto) 20.8 (18.3-44.2) % Marinette % (Auto) 10.0 H (2.6-8.5) % Eos % (Auto) 2.6 (0-4.4) % Baso % (Auto) 0.8 (0.2-1.2) % Lymph # (Auto) 2.75 (0.9-3.2) K/mm3 Marinette # (Auto) 1.3 H (0.1-0.6) K/mm3 Eos # (Auto) 0.4 H (0-0.3) K/mm3 Baso # (Auto) 0.1 (0.0-0.1) K/mm3 Abs Immat Gran (auto) 0.27 H (0.00-0.031) K/mm3 Absolute Neuts (auto) 8.4 H (1.3-6.7) K/mm3 Absolute Nucleated RBC 0.000 (0.0-0.012) K/mm3 Nucleated RBC % 0.0 (0.0-0.2) % Sodium 138 (137-145) mmol/L Potassium 4.3 (3.4-5.0) mmol/L Chloride 100 (98-107) mmol/L Carbon Dioxide 31 H (22-30) mmol/L Anion Gap 7 (4-12) mmol/L BUN 25 H (7-17) mg/dL Creatinine 0.65 L (0.7-1.0) mg/dL Estim Creat Clear Calc 105 ml/min Estimated GFR > 60 (59 - ) Glucose 105 (65-110) mg/dL Calcium 8.9 (8.4-10.2) mg/dL C-Reactive Protein 3.9 H (<1.0) mg/dL Discharge Plan Discharge Clinical Impression: Pain, dental Patient Disposition: Home, Self-Care Condition: Stable Instructions: Antibiotic Form Additional Instructions: Your imaging today shows inflammation versus infection. Please take Augmentin as prescribed and follow-up closely with dentist. Is likely that you will need to have the tooth pulled. If you have any new or worsening symptoms please return to the ER for further evaluation. Patient Language: Croatian Prescriptions: New amoxicillin-pot clavulanate 875-125 mg tablet 1 tablet PO Q12H Qty: 14 0RF No Action Mounjaro 5 mg/0.5 mL pen injector SUBCUT multivitamin Tablet 1 tablet PO DAILY albuterol sulfate 2.5 mg /3 mL (0.083 %) solution for nebulization 2.5 mg inhalation Q6H PRN (Reason: shortness of breath or wheezing) Qty: 360 1RF bupropion HCl 300 mg tablet extended release 24 hr 300 mg PO DAILY meloxicam 15 mg tablet 15 mg PO DAILY PRN metronidazole 500 mg tablet lisinopril-hydrochlorothiazide 10-12.5 mg tablet 1 tablet PO DAILY Qty: 90 0RF sertraline 100 mg tablet 200 mg PO DAILY Qty: 180 1RF albuterol sulfate 90 mcg/actuation HFA aerosol inhaler 1 - 2 inh inhalation Q4-6H PRN (Reason: shortness of breath or wheezing) 90 Days Qty: 25.5 1RF prednisone 10 mg tablet 10 mg PO DIRECTED Qty: 30 0RF Rx Instructions: Take 4 tablets by mouth daily for 3 days, then 3 tablets for 3 days, 2 tablets for 3 days, 1 tablet for 3 days Trelegy Ellipta 200-62.5-25 mcg blister with device 1 inh inhalation Q24H Qty: 60 5RF Rx Instructions: rinse and spit Follow-up/Referrals: Catalina,DEVI Valero [Primary Care Provider] - Stand Alone Forms: Work/School Release IP Time of Disposition: 00:52
--- OUTSIDE RECORDS SUMMARY | 2024-09-26 21:06 | XMS_ITS | Referral Summary ---
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
--- OUTSIDE RECORDS SUMMARY | 2024-09-26 21:06 | XMS_ITS | Clinical Summary ---
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
--- OUTSIDE RECORDS SUMMARY | 2024-09-26 21:07 | XMS_ITS | Referral Summary ---
Author Organization [facility] Address [address] [place] [address] Care Team Providers Care Drum Reel Cutter Name Role Phone Kelvin Tam DO Primary Care Provider [phone] Source Comments [facility],non-owned Affiliates and Associated Physician Practices is amultiple site organization consisting of ambulatory clinics and hospital sitesin [place], [place], [place] and [place]. This disclosure is being madepursuant to the Care Everywhere program and may not contain all information available regarding this patient. Last updated 18.[facility] Allergies Active Allergy Reactions Criticality Noted Date [...] Comments Blood Pressure 146/92 09/28/2019 12:38 PM BALLISTIC TECHNICIAN Pulse 124 09/28/2019 12:38 PM BALLISTIC TECHNICIAN Temperature 39.1 C (102.4 F) 09/28/2019 12:38 PM BALLISTIC TECHNICIAN Respiratory Rate 16 09/28/2019 12:38 PM BALLISTIC TECHNICIAN Oxygen Saturation 98% 09/28/2019 12:38 PM BALLISTIC TECHNICIAN Inhaled Oxygen Concentration - - Weight 90.7 kg (200 lb) 09/28/2019 12:38 PM BALLISTIC TECHNICIAN Height 165.1 cm (5' 5 ) 09/28/2019 12:38 PM BALLISTIC TECHNICIAN Body Mass Index 33.28 09/28/2019 12:38 PM BALLISTIC TECHNICIAN Plan of Treatment Not on file Care Teams Drum Reel Cutter Relationship Specialty Start Date End Date Kelvin Tam DO PCP - General Internal Medicine 06/27/19
--- OUTSIDE RECORDS SUMMARY | 2024-09-26 21:07 | XMS_ITS | Continuity of Care Document ---
Author Organization [facility] Address [address] [place] [address] Phone Care Team Providers Care Washer Carcass Name Role Phone Farias OD, Jose Unavailable [...] Diagnoses Date Provider Providers Copied on Encounter [facility], [address], [place], [place], [id number], [place] tel:[phone] [facility] No Information 1-201 0 Farias OD Jose. [address] , [address], [place], [address], [place]. tel:[phone] [facility], [address] [place] [address] [address], [place], [place], [address], [place] tel:[phone] [facility] No Information Mar-1 1-201 0 Farias OD Jose. [address] , [address], [place], [place], [facility], [place]. tel:[phone] Referring Provider: Jose Farias OD A, [address], [place], [facility]. tel:[phone] [facility], [address] [place] [address] [address], [place], [place], [address], [place] tel:[phone] [facility] No Information Feb-0 9-201 0 Farias OD Jose. [address] , [address], [place], [facility], [place]. tel:[phone] [facility], [address] [place] [address] [address], [place], [place], [address], [place] tel:[phone] [facility] No Information Neeraj-1 9-200 9 Farias OD Jose. [address], [address], [place], [facility], [place]. tel:[phone] [facility], [address] [place] [address] [address], [place], [place], [address], [place] tel:[phone] [facility] No Information Neeraj-0 4-200 9 Farias OD Jose. [address] , [address], [place], [facility], [place]. tel:[phone] Office/outpat ient Visit, Est [facility], [address] [place] [address] [address], [place], [place], [address], [place] tel:[phone] [facility] No Information Nov-2 0-200 8 Farias OD Jose. [address] , [address], [place], [address], [place]. tel:[phone] Office/outpat ient Visit, [facility], [address], [place], [place], [address], [place] tel:[phone] [facility] No Information Nov-1 3-200 8 Farias OD Jose. [address] , [address], [place], [facility], [place]. tel:[phone] Office/outpat ient Visit, [facility], [address] [place] [address] [address], [place], [place], [address], [place] tel:[phone] [facility] No Information Nov-1 2-200 8 Farias OD Jose. [address] [facility] , [address], [place], [facility], [place]. tel:[phone] Office/outpat ient Visit, [facility], [address] [place] [address] [address], [place], [place], [address], [place] tel:[phone] [facility] No Information Oct-2 9-200 8 Farias OD Jose. [address], [place], [facility], [place]. tel:[phone] [facility], [address] [place] [address] [address], [place], [place], [address], [place] tel:[phone] [facility] No Information Oct-2 0-200 8 Krishnasamy Blaze. [facility] [address], [place], [facility], [place]. tel:[phone] [facility], [address] [place] [address] [address], [place], [place], [address], [place] tel:[phone] [facility] No Information Oct-1 5-200 8 Krishnasamy Blaze. [address] [facility] [place] [address], [place], [facility], [place]. tel:[phone] [facility], [address], [place], [place], [address], [place] tel:[phone] [facility] No Information Oct-1 3-200 8 Krishnasamy Blaze. [address], [place], [facility], [place]. tel:[phone] Office/outpat ient Visit, [facility], [address] [place] [address] [address], [place], [place], [address], [place] tel:[phone] [facility] No Information Oct-1 0-200 8 Krishnasamy Blaze. [address] [facility] [address], [place], [facility], [place]. tel:[phone] [facility], [address], [place], [place], [address], [place] tel:[phone] [facility] No Information Oct-0 8-200 8 Doisy Edward. [facility] , [address], [place], [facility], [place]. tel:[phone] Office/outpat ient Visit, [facility], [address], [place], [place], [address], [place] tel:[phone] [facility] No Information Oct-0 7-200 8 Leonor Camejo. [address], [place], [facility], [place]. tel:[phone] [facility], [address] [place] [address] [address], [place], [place], [address], [place] tel:[phone] [facility] No Information Oct-0 6-200 8 Doisy Edward. [address], [place], [facility], [place]. tel:[phone] Family History Family Member Type Diagnosis Age At Onset No Information Payers Payer name Insurance type Covered democrat ID Hayder owen(s) [employer] Plan [id number] Social History Type Description Quantity Date Captured [...]
--- OUTSIDE RECORDS SUMMARY | 2024-09-26 21:07 | XMS_ITS | Clinical Summary ---
Author Organization [facility] [employer] Address [address] [place] [address] Care Team Providers Care Room Inspector Name Role Phone Kelvin Tam DO Primary Care Provider [phone] Source Comments [facility],non-owned Affiliates and Associated Physician Practices is amultiple site organization consisting of ambulatory clinics and hospital sitesin [place], [place], [place] and [place]. This disclosure is being madepursuant to the Care Everywhere program and may not contain all information available regarding this patient. Last updated 18.[facility] Allergies Active Allergy Reactions Criticality Noted Date [...] Comments Blood Pressure 146/92 09/28/2019 12:38 PM CCTV TECHNICIAN Pulse 124 09/28/2019 12:38 PM CCTV TECHNICIAN Temperature 39.1 C (102.4 F) 09/28/2019 12:38 PM CCTV TECHNICIAN Respiratory Rate 16 09/28/2019 12:38 PM CCTV TECHNICIAN Oxygen Saturation 98% 09/28/2019 12:38 PM CCTV TECHNICIAN Inhaled Oxygen Concentration - - Weight 90.7 kg (200 lb) 09/28/2019 12:38 PM CCTV TECHNICIAN Height 165.1 cm (5' 5 ) 09/28/2019 12:38 PM CCTV TECHNICIAN Body Mass Index 33.28 09/28/2019 12:38 PM CCTV TECHNICIAN Plan of Treatment Health Maintenance Due Date [...] age to complete this topic Care Teams Room Inspector Relationship Specialty Start Date End Date Kelvin Tam DO PCP - General Internal Medicine 06/27/19
--- OUTSIDE RECORDS SUMMARY | 2024-09-26 21:07 | XMS_ITS | Clinical Summary ---
Author Organization [facility] Address [address] [place] [address] Care Team Providers Care Loss Prevention Consultant Name Role Phone Unavailable Primary Care Provider Unavailabl e Social History Tobacco Use Types Packs/Day Years Used Date Smoking Tobacco: Never Assessed Comments Unknown Sex and Gender Information Value Date Recorded Sex Assigned at Not on file Legal Sex Female 1:27 PM SALT CUTTER Gender Identity Not on file Sexual Orientation [...]
--- OUTSIDE RECORDS SUMMARY | 2024-09-26 21:07 | XMS_ITS | Patient Health Summary ---
Author Organization [facility] Address [address] [place] [address] Care Team Providers Care [place] Attorney Name Role Phone Kelvin Tam DO Primary Care Provider [phone] Note from [facility],non-owned Affiliates and Associated Physician Practices is amultiple site organization consisting of ambulatory clinics and hospital sitesin [place], [place], [place] and [place]. This disclosure is being madepursuant to the Care Everywhere program and may not contain all information available regarding this patient. Last updated 18.[facility] Allergies * Penicillins(Rash) -Medium Criticality Medications * [...] Comments Blood Pressure 146/92 09/28/2019 12:38 PM RANGE ECOLOGIST Pulse 124 09/28/2019 12:38 PM RANGE ECOLOGIST Temperature 39.1 C (102.4 F) 09/28/2019 12:38 PM RANGE ECOLOGIST Respiratory Rate 16 09/28/2019 12:38 PM RANGE ECOLOGIST Oxygen Saturation 98% 09/28/2019 12:38 PM RANGE ECOLOGIST Inhaled Oxygen Concentration - - Weight 90.7 kg (200 lb) 09/28/2019 12:38 PM RANGE ECOLOGIST Height 165.1 cm (5' 5 ) 09/28/2019 12:38 PM RANGE ECOLOGIST Body Mass Index 33.28 09/28/2019 12:38 PM RANGE ECOLOGIST Procedures * DERMATOPATHOLOGY(Performed 11/27/2021) * STREP A [...] AM CDT) Case Report Dermatopathology Report Case: [id number] Authorizing Provider: Mini Moya DO Collected: 11/27/2021 12:00 AM Ordering Location: [facility] DermPath Lab Received: 11/28/2021 08:26 AM Pathologist: [...] characteristic determined by the Dermatopathology Laboratory at [facility], directed by Dr. Jj Jeronimo. These tests need not be, and therefore are not, approved by the [place] Food and Drug Administration. The tests are used for clinical purposes. Billing Codes Specimen Charges Stain Charges 15802 [id number] [id number] 1 1 1 2 5:29 PM CDT [...] LAB - PATHOLOGY/C YTOLOGY ORDERABLES DERMATOPATHOLOGY LABORATORY [facility] - Department of Dermatology [address], [address] Floor [address] [phone] * STREP A SCREEN - POINT OF CARE (AMB) STL (09/28/2019 12:51 PM RANGE ECOLOGIST) Strep A Rapid POCT Negative Negative Strep A Internal Control Present Lot # [id number] Expiration Date 01 09 2021 Throat ENTIRE THROAT (SURFACE REGION OF NECK) / Unknown 09/28/2019 12:51 PM RANGE ECOLOGIST Nuha Dyer APRN-[facility] - POINT OF CA RE ORDERABLES * INFLUENZA A+B - POINT OF CARE (AMB) (09/28/2019 12:51 PM RANGE ECOLOGIST) Influenza A Antigen Rapid Negative Negative Influenza B Antigen Rapid Negative Negative Influenza Internal Control present NEGATIVE - POSITIVE Influenza Lot Number [id number] Influenza Expiration Date 05 26 2021 Other NASOPHARYNGEAL SWAB / Unknown 09/28/2019 12:51 PM RANGE ECOLOGIST Nuha Dyer APRN-[facility] - POINT OF CA RE ORDERABLES * (ABNORMAL) CULTURE URINE (06/27/2019 12:48 PM RANGE ECOLOGIST) Urine Culture Routine Final report(A) [facility] ACCOUNT [...] and trimethoprim-sulfamethoxazole are not effective clinically. (CLSI, G658-C54, 2016) Antimicrobial Susceptibility [facility] ACCOUNT BILL Comment: S = Susceptible; I = Intermediate; R = Resistant P = Positive; N = Negative MICS are expressed in micrograms per mL Antibiotic RSLT#1 RSLT#2 RSLT#3 RSLT#4 Ciprofloxacin S Levofloxacin S Nitrofurantoin S Penicillin S Tetracycline R Vancomycin S Urine URINE SPECIMEN OBTAINED BY CLEAN CATCH PROCEDURE / Unknown 06/27/2019 12:48 PM RANGE ECOLOGIST 06/29/2019 Narrative Resulting Agency Comment Lab Testing performed at: [facility] [address] [facility] [id number] Kendra Fitzpatrick HOME SECURITY PROFESSIONAL-[facility] - MICROBIOL OGY ORDERABLES [facility] ACCOUNT BILL [address] [place] [address] * URINALYSIS AUTO - POINT OF CARE (AMB) STL (06/27/2019) Clarity UA POCT clear Color UA POCT yellow Leukocyte UA 15 Negative Nitrite UA POCT neg Negative Urobilinogen UA 0.2 0.1 - 1.0 Protein UA POCT 15 Negative pH UA 6.5 5.0 - 8.0 pH units Blood UA 5-10 Negative Specific [place] UA POCT 1.020 1.002 - 1.030 Ketone UA neg Negative Bilirubin UA POCT neg Negative Glucose UA neg Negative Expiration Date [id number] Lot # [id number] QC Verified Yes Yes Urine URINE / Unknown 06/27/2019 Kendra Fitzpatrick APRN-[facility] - POINT OF CARE ORDERABLES Care Teams [place] Attorney Relationship Specialty Start Date End Date Kelvin Tam DO PCP - General Internal Medicine 06/27/19
[2024-09-26 21:43] LABS: Basophils Absolute Auto 0.1 K/mm3 (0.0-0.1); Basophils Percent Auto 0.8 % (0.2-1.2); Eosinophils Absolute Auto 0.4 K/mm3 (0-0.3); Eosinophils Percent Auto 2.6 % (0-4.4); Hematocrit 37.9 % (37.0-47.0); Hemoglobin 12.5 g/dL (12.0-15.0); Immature Granulocyte Absolute 0.27 K/mm3 (0.00-0.031); Lymphocytes Absolute Auto 2.75 K/mm3 (0.9-3.2); Lymphocytes Percent Auto 20.8 % (18.3-44.2); Mean Corpuscular Hemoglobin 29.6 pg (26-34); Mean Corpuscular Volume 89.6 fl (80-100); Mean Platelet Volume 10.1 fl (7.4-10.4); Monocytes Absolute Auto 1.3 K/mm3 (0.1-0.6); Neutrophils Absolute Auto 8.4 K/mm3 (1.3-6.7); Neutrophils Percent Auto 63.8 % (45.5-73.1); Platelet Count Result 326 k/mm3 (150-375); Red Blood Count 4.23 M/mm3 (4.2-5.4); Red Cell Distribution Width 14.6 % (11.5-14.5); White Blood Count 13.2 K/mm3 (4.5-10.0)
[2024-09-26 21:54] LABS: Anion Gap 7 mmol/L (4-12); Blood Urea Nitrogen 25 mg/dL (7-17); Calcium 8.9 mg/dL (8.4-10.2); Carbon Dioxide 31 mmol/L (22-30); Chloride 100 mmol/L (98-107); Estimated CRCL calculation 105 ml/min; Estimated Glomerular Filt Rate > 60; Glucose 105 mg/dL (65-110); Potassium 4.3 mmol/L (3.4-5.0); Sodium 138 mmol/L (137-145)
[2024-09-26 21:58] LABS: CRP 3.9 mg/dL (<1.0)
--- NOTE | 2024-09-26 22:16 | PC.NURSE ---
Patient taken to CT via w/c at this time.
[2024-09-26] MEDS: IBUPROFEN 400 MG TABLET 800 MG PO (23:39)
[2024-09-26] MEDS: AMOXICILLIN/CLAVULANATE K 875-125 MG TAB 1 TABLET PO (23:39)
[2024-09-26 23:57] VITALS: BP 132/65; PULSE 77; RESP 18; TEMP 36.6; O2SAT 99
== END 2024-09-27 00:57 | disposition home or self-care (01) ==
PROVIDERS: Emergency Provider Physician Assistant; PCP Physician Assistant
DX: K08.89 Other specified disorders of teeth and supporting structures (principal); I10 Essential (primary) hypertension; F41.9 Anxiety disorder, unspecified; F32.A Depression, unspecified; Z87.891 Personal history of nicotine dependence
CPT/HCPCS: 36415; 70491; 80048; 85025; 86140; 96374; 99284; A9270; Q9967

== ENCOUNTER 2024-10-05 16:05 | Outpatient (CLI) | payer BC, SELFPAY ==
--- NOTE | ~2024-10-05 | XR_ITS ---
CHEST RADIOGRAPH, PA AND LATERAL CLINICAL HISTORY: R06.09 - Other forms of dyspnea . COMPARISON: 08/13/2024 TECHNIQUE: PA and lateral views of the chest. FINDINGS The cardiomediastinal silhouette is unremarkable. The lungs are clear. Visualized osseous structures and soft tissues are unremarkable. IMPRESSION: No focal infiltrate or effusion. Reviewed, dictated and finalized at location A. L VIAL GRINDER
== END 2024-10-05 16:06 | disposition home or self-care (01) ==
LOC: GOSHIMG 16:06
PROVIDERS: PCP Physician Assistant; Visit Provider Nurse Practitioner Family
DX: R06.09 Other forms of dyspnea (principal); R05.9 Cough, unspecified
CPT/HCPCS: 71046

== ENCOUNTER 2024-10-26 16:18 | Outpatient (CLI) | payer BC, SELFPAY ==
--- NOTE | ~2024-10-26 | CT_ITS ---
CLINICAL INDICATION: Chronic cough COMPARISON: None. Reference was made to plain film evaluations of the chest, performed most recently on 10/05/2024 and d ating back to 05/23/2023. TECHNIQUE: Multiple contiguous axial images of the chest was performed without the administration of intravenous contrast. This CT examination was performed utilizing dose reduction techniques. DLP: 290 mGy-cm FINDINGS/OBSERVATIONS: LUNG: The lungs are clear. HEART: The heart is of normal size, without pericardial effusion. MEDIASTINUM: No pathologically enlarged or morphologically suspicious lymph nodes are identified within the medias tinum, bilateral axilla, within the soft tissues of the anterior chest wall. SOFT TISSUES OF THE CHEST: Unremarkable. BONES OF THE CHEST: No acute fracture. No lytic or blastic lesions are identified. UPPER ABDOMEN: Unremarkable. IMPRESSION: No acute pathology within the patient's chest account for the presenting symptom. Reviewed, dictated and finalized at location A. IMPRESSION: No acute pathology within the patient's chest account for the presenting sympto m.
--- OUTSIDE RECORDS SUMMARY | 2024-10-26 18:44 | XMS_ITS | Clinical Summary ---
Author Organization [facility] Address [address] [place] [address] Care Team Providers Care Steel Fitter Name Role Phone Unavailable Primary Care Provider Unavailabl e Social History Tobacco Use Types Packs/Day Years Used Date Smoking Tobacco: Never Assessed Comments Unknown Sex and Gender Information Value Date Recorded Sex Assigned at Not on file Legal Sex Female 1:27 PM VIDEO CLERK Gender Identity Not on file Sexual Orientation [...]
--- OUTSIDE RECORDS SUMMARY | 2024-10-26 18:44 | XMS_ITS | Clinical Summary ---
Author Organization [email or web address] Address [address] [place] [address] Care Team Providers Care Tile Presser Name Role Phone Kelvin Tam DO Primary Care Provider [phone] Source Comments [facility],non-owned Affiliates and Associated Physician Practices is amultiple site organization consisting of ambulatory clinics and hospital sitesin [place], [place], [place] and [place]. This disclosure is being madepursuant to the Care Everywhere program and may not contain all information available regarding this patient. Last updated 18.[email or web address] Allergies Active Allergy Reactions Criticality Noted Date [...] Comments Blood Pressure 146/92 09/28/2019 12:38 PM CENTRIFUGAL DRIER OPERATOR Pulse 124 09/28/2019 12:38 PM CENTRIFUGAL DRIER OPERATOR Temperature 39.1 C (102.4 F) 09/28/2019 12:38 PM CENTRIFUGAL DRIER OPERATOR Respiratory Rate 16 09/28/2019 12:38 PM CENTRIFUGAL DRIER OPERATOR Oxygen Saturation 98% 09/28/2019 12:38 PM CENTRIFUGAL DRIER OPERATOR Inhaled Oxygen Concentration - - Weight 90.7 kg (200 lb) 09/28/2019 12:38 PM CENTRIFUGAL DRIER OPERATOR Height 165.1 cm (5' 5 ) 09/28/2019 12:38 PM CENTRIFUGAL DRIER OPERATOR Body Mass Index 33.28 09/28/2019 12:38 PM CENTRIFUGAL DRIER OPERATOR Plan of Treatment Health Maintenance Due Date [...] to complete this topic MENINGOCOCCAL (Group B) VACC INE SHARED DECISION-MAKING Aged Out No longer eligibl e based on patient's age to complete this topic MENINGOCOCCAL GROUPS A/C/Y/W VACCINE Aged Out No longer eligible b ased on patient's age to complete this topic PNEUMOCOCCAL VACCINE Aged Out No long er eligible based on patient's age to complete this topic Care Teams Tile Presser Relationship Specialty Start Date End Date Kelvin Tam DO PCP - General Internal Medicine 06/27/19
--- OUTSIDE RECORDS SUMMARY | 2024-10-26 18:44 | XMS_ITS | CONTINUITY OF CARE DOCUMENT ---
Author Name yoel diallo Address Unknown Organization [facility] Address [address] [place] [address] Phone [phone] Care Team Providers Care Jig Worker Name Role Phone Aziza Delgado MD Unavailable GOGO MACKEY Unavailable GOGO MACKEY Unavailable [phone] PROBLEMS Condition Status Date Provider Notes Chest pain--CCS zero, nl ech o, nl stress, nl renal art. dup. 07/2023 active Aziza Delgado MD Prediabetes active Brian Ahmedzapola Hypertension active Brian Ahmedzai Tinnitus, bilateral active Brian Ahmedzai Obesity active Brian Ahmedzai Hyperlipidemia active Brian Ahmedzai Former smoker active Brian Ahmedzai Fatigue active Brian Ahmedzai Hx of preeclampsia active Brian Ahdipakzai Sleep apnea, mild, severity does not qualify for cpap active Aziza Delgado MD ENCOUNTERS Date Type Provider Location Encounter Diag nosis - In-person encounter Office Visit Aziza Delgado MD [facility] Sleep apnea, mild, severity does not qualify for cpap - In-person encounter Office Visit Aziza Delgado MD [facility] Former smokerFatigueHx of preeclampsia VITAL SIGNS Date Observation Value Provider Body Mass Index (Ratio) 39.27 kg/m2 Olegario Delgado MD blood pressure, cuff size regular [facility] blood pressure, diastolic 89 mm[Hg] Ja rret blood pressure, systolic 112 mm[Hg] Jar pulse rate 95 /min oxygen saturation, oximetry 97 % respiratory rate E&M 16 /min weight E&M 236 [lb_av] Farzad y height E&M 65 [in_i] Farzad y weight E&M 218 [lb_av] Lashawn Dorothy alvarenga Body Mass Index (Ratio) 36.27 kg/m2 Olegario Delgado MD blood pressure, diastolic 88 mm[Hg] Li nkLogic blood pressure, systolic 115 mm[Hg] Celestina kLogic blood pressure, cuff size regular [facility] blood pressure, diastolic 88 mm[Hg] rr blood pressure, systolic 115 mm[Hg] Jar pulse rate 86 /min Farzad height E&M 65 [in_i] Farzad y oxygen saturation, oximetry 98 % respiratory rate E&M 12 /min weight E&M 218 [lb_av] Farzad y ALLERGIES Allergy Name Onset Date Reaction Criticality Status PENICILLIN Low Criticality active HISTORY OF MEDICATION USE Medication Status Instructions Dates Provider Indications Com ments Zoloft unspecified unspecified active lisinopril 10 mg tablet active Wellbutrin SR unspecified unspecified completed - Wellbutrin XL 300 mg tablet extended release 24 hr active Farzad SOCIAL HISTORY Date Observation Value Provider cigarette use yes Brian Levy smoking status Former smoker Brian Haas i social history E&M S moking History: [address] street is a former smoker. 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 [id number] ADVANCE DIRECTIVES Name Date DISCUSSED - NO DECISION MADE TREATMENT PLAN Date Name Performer [id number],S, Brian Haas i [id number],S, Brian Haas i [id number],S, Brian Haas i [id number],S, Brian Mcdowellza i [id number],S, Brian Mcdowellza i [id number],S, Brian Mcdowellza i Cardiology Brian Levy Cardiology Brian Levy Cardiology: B P today: 112/89 P rior BP: 115/88 (06/17/2023) Her updated medication list for this problem includes: Lisinopril 10 Mg Tablet (Lisinopril) Brian Levy Cardiology Brian Levy Cardiology Brian Levy Cardiology Brian Levy Cardiology: H er updated medication list for this problem includes: Lisinopril 10 Mg Tablet (Lisinopril) Brian Levy Telehealth Brian Levy Telehealth Brian Mccabemedzai Telehealth Brian Mccabemedzai Telehealth Brian Mccabemedzai Telehealth Brian Mccabemedzai Telehealth Brian Mccabemedzai Cardiology Brian Estellemedzai Cardiology Brian Estellemedzai Cardiology Brian Jeremiaszapola Cardiology Brian Jeremiascarissa Cardiology Brian Haaspola Cardiology Brian Levy Date Name Sleep Study Home Stress Routine Renal Artery Duplex CT, Coronary Calcium Score Complete Echo HISTORY OF PROCEDURES Procedure Date Procedure Name Provider Procedure Notes S tatus CT- Coronary CA score Aziza Delgado MD completed EKG Aziza Delgado MD completed
--- OUTSIDE RECORDS SUMMARY | 2024-10-26 18:44 | XMS_ITS | Patient Health Summary ---
Author Organization [facility] Address [address] [place] [address] Care Team Providers Care Plastic Printer Name Role Phone Kelvin Tam DO Primary Care Provider [phone] Note from [facility],non-owned Affiliates and Associated Physician Practices is amultiple site organization consisting of ambulatory clinics and hospital sitesin [place], [place], [place] and [place]. This disclosure is being madepursuant to the Care Everywhere program and may not contain all information available regarding this patient. Last updated 18.[facility] Allergies * Penicillins(Rash) -Medium Criticality Medications * [...] Comments Blood Pressure 146/92 09/28/2019 12:38 PM OPERATIONS/DISPATCH Pulse 124 09/28/2019 12:38 PM OPERATIONS/DISPATCH Temperature 39.1 C (102.4 F) 09/28/2019 12:38 PM OPERATIONS/DISPATCH Respiratory Rate 16 09/28/2019 12:38 PM OPERATIONS/DISPATCH Oxygen Saturation 98% 09/28/2019 12:38 PM OPERATIONS/DISPATCH Inhaled Oxygen Concentration - - Weight 90.7 kg (200 lb) 09/28/2019 12:38 PM OPERATIONS/DISPATCH Height 165.1 cm (5' 5 ) 09/28/2019 12:38 PM OPERATIONS/DISPATCH Body Mass Index 33.28 09/28/2019 12:38 PM OPERATIONS/DISPATCH Procedures * DERMATOPATHOLOGY(Performed 11/27/2021) * STREP A [...] AM CDT) Case Report Dermatopathology Report Case: [id number] Authorizing Provider: Mini Moya DO Collected: 11/27/2021 12:00 AM Ordering Location: [facility] Received: 11/28/2021 08:26 AM [...] characteristic determined by the Dermatopathology Laboratory at [facility], directed by Dr. Jj Jeronimo. These tests need not be, and therefore are not, approved by the [place] Food and Drug Administration. The tests are used for clinical purposes. Billing Codes Specimen Charges Stain Charges 46669 [id number] 1 1 1 2 5:29 PM CDT [...] LAB - PATHOLOGY/C YTOLOGY ORDERABLES DERMATOPATHOLOGY LABORATORY [facility] - Department of Dermatology [address], [address] [phone] * STREP A SCREEN - POINT OF CARE (AMB) ST[facility] (09/28/2019 12:51 PM OPERATIONS/DISPATCH) Strep A Rapid POCT Negative Negative Strep A Internal Control Present Lot # [id number] Expiration Date 01 09 2021 Throat ENTIRE THROAT (SURFACE REGION OF NECK) / Unknown 09/28/2019 12:51 PM OPERATIONS/DISPATCH Nuha Dyer APRN-[facility] - POINT OF CA RE ORDERABLES * INFLUENZA A+B - POINT OF CARE (AMB) (09/28/2019 12:51 PM OPERATIONS/DISPATCH) Influenza A Antigen Rapid Negative Negative Influenza B Antigen Rapid Negative Negative Influenza Internal Control present NEGATIVE - POSITIVE Influenza Lot Number [id number] Influenza Expiration Date 05 26 2021 Other NASOPHARYNGEAL SWAB / Unknown 09/28/2019 12:51 PM OPERATIONS/DISPATCH Nuha Dyer APRN-[facility] - POINT OF CA RE ORDERABLES * (ABNORMAL) CULTURE URINE (06/27/2019 12:48 PM OPERATIONS/DISPATCH) Urine Culture Routine Final report(A) [facility] ACCOUNT [...] and trimethoprim-sulfamethoxazole are not effective clinically. (CLSI, [id number], 2016) Antimicrobial Susceptibility [facility] ACCOUNT BILL Comment: S = Susceptible; I = Intermediate; R = Resistant P = Positive; N = Negative MICS are expressed in micrograms per mL Antibiotic RSLT#1 RSLT#2 RSLT#3 RSLT#4 Ciprofloxacin S Levofloxacin S Nitrofurantoin S Penicillin S Tetracycline R Vancomycin S Urine URINE SPECIMEN OBTAINED BY CLEAN CATCH PROCEDURE / Unknown 06/27/2019 12:48 PM OPERATIONS/DISPATCH 06/29/2019 Narrative Resulting Agency Comment Lab Testing performed at: [facility] [address] [id number] Kendra Fitzpatrick COVER STITCH MACHINE OPERATOR-PUBLISHER ASSISTANT LAB - MICROBIOL OGY ORDERABLES [facility] ACCOUNT BILL [address] [place] [address] * URINALYSIS AUTO - POINT OF CARE (AMB) STL (06/27/2019) Clarity UA POCT clear Color UA POCT yellow Leukocyte UA 15 Negative Nitrite UA POCT neg Negative Urobilinogen UA 0.2 0.1 - 1.0 Protein UA POCT 15 Negative pH UA 6.5 5.0 - 8.0 pH units Blood UA 5-10 Negative Specific [place] UA POCT 1.020 1.002 - 1.030 Ketone UA neg Negative Bilirubin UA POCT neg Negative Glucose UA neg Negative Expiration Date [id number] Lot # [id number] QC Verified Yes Yes Urine URINE / Unknown 06/27/2019 Kendra Fitzpatrick APRN-[facility]ISH[facility] LAB - POINT OF CARE ORDERABLES Care Teams Plastic Printer Relationship Specialty Start Date End Date Kelvin Tam DO PCP - General Internal Medicine 06/27/19
--- OUTSIDE RECORDS SUMMARY | 2024-10-26 18:44 | XMS_ITS | Data Portability ---
Author Organization [place] - [employer], Main Office Address [address] [place] [address] Assessment Encounter Date Assessment Date Assessment LastModified by Organization Details LastModified Time 11/14/2022 11/14/2022 [facility] [place] 02/2019-normal- at [place], repeat - 02/2029 [facility]- [employer] REPRESENT[employer]IVE Call office if worse, ER if life threatening illness RTC 4 months She voices understanding of plan and agrees [email or web address] Not available 11/14/2022 16:49:30 04/24/2023 04/24/2023 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 [place] 02/2019-normal- at [place], repeat - 02/2029 [facility] Mammogram- [employer] REPRESENTATIVE Call office if worse, ER if life threatening illness RTC 6 months and PRN- keep scheduled follow up She voices understanding of plan and agrees [email or web address] Not available 05/29/2023 12:08:22 Plan of Treatment Reminders Order Date Submit Date Provider Last Modified By Organization Details Last Modified Time Details Appointments None recorded. Lab HbA1c (hemoglobin A1c), blood 2022 023 [email or web address] [facility], [address] [facility] [address], [place], [address], 3 11:01:51 urinalysis complete, reflex culture 2022 023 SOO [facility], [address], [place], [address], 3 09:47:13 CBC w/ auto diff 2022 023 SOO [facility], [address], [place], [address], 3 09:47:13 CMP, serum or plasma 2022 023 SOO [facility], [address], [place], [address], 3 09:47:13 lipid panel, serum 2022 023 SOO [facility], [address], [place], [address], 3 09:47:14 TSH, ultra-sensi tive, serum 2022 [facility]23 [email or web address], [address], [place], [address], 11:01:51 Referral None recorded. Procedures None recorded. Surgeries None recorded. Imaging None recorded. Medication Orders lisinopril 10 mg-hydrochl orothiazide 12.5 mg tablet 2022 023 [facility], [facility], [place], [address], 16:26:37 Ozempic 0.25 mg or 0.5 mg (2 mg/3 mL) subcutaneou s pen injector [address] [facility], [facility], [place], [address], 3 16:09:44 lisinopril 10 mg-hydrochl orothiazide 12.5 mg tablet 2022 023 [facility], [facility], [place], [address], 16:44:03 Patient TargetsNo targets recorded. Patient InstructionsNo instructions recorded. Reason for Referral None Reported. Results Created Date Observation Date Name Description Value Unit Range Abnormal Flag Note LastModifiedBy Organization Detail LastModifiedTime 05/16/2005/15/2022 audio gram + tympa nogra m No observ ation record ed. [id number] [facility] [address] [facility], [place], [address], 10/11/2022 00:40:12 05/21/20 22 05/15/2022 audio gram + tympa nogra m No observ ation record ed. [id number].[id number] [facility] [place], [address] Floor, [place], [address], 10/11/2022 00:40:12 05/28/20 MRI, inter nal audit ory canal , w/wo contr ast [facility] [address] [address] Patien t Name: KATIE VÁZQUEZ Access ion #: [id number] Sex: F : 1974 0 Locati [...] ce of mass in the cerebe llopon dnote angle cister ns or compliance intern al audito ry canals . The fifth, sevent h, and eighth crania l nerves are symmet hilton withou t abnorm al thicke damion. The cochle a and vestib ular aquedu cts appear Page 1 of 2 [facility] [place] Patien t Name: KATIE VÁZQUEZ Access ion #: [id number] Sex: F : 1974 0 Exam Date: 2021 12:36 PM Exam Name: MRI IACS W/WO Admitt ing Diagno sis(es ): normal and symmet hilton. No eviden ce of fluid or abnorm al signal in the middle ear spaces , mastoi d air cells, or die casting machine setter al audito ry canals . IMPRES FAHEEM: Unrema rkable pre and post IV contra st MRI of the IACs. Create d and electr onical ly signed by: Bhupinder oconnor MD Signed Date: 2021 2:06 PM (CT) Dictat ed by: Bhupinder oconnor MD DD: 2021 2:06 PM (CT) DT: 2021 2:06 PM (CT) Page 2 of 2 MIGRATION.[id number] [facility] [address] [place], [address], 10/11/2022 00:40:12 05/28/20 22 05/28/2022 MRI, inter nal audit ory canal , w/wo contr ast No observ ation record ed. MIGRATION. [place] [facility] [address] [place] [address] [place], [address], 10/11/2022 00:40:12 06/05/20 22 05/28/2022 MRI, inter nal audit ory canal , w/wo contr ast No observ ation record ed. MIGRATION. [facility] [address] [place] [address] [place], [address], 10/11/2022 00:40:12 05/23/20 23 05/23/2023 XR, chest , 2 view No observ ation record ed. [address], [place], [address], 05/27/2023 10:00:00 06/27/20 23 06/27/2023 US, duple x, renal arter y No observ ation record ed. [address] [facility] [address], [place], [address], 06/28/2023 11:47:59 07/03/20 23 06/27/2023 home sleep study No observ ation record ed. [address] [facility] [address], [place], [address], 07/08/2023 12:14:00 07/15/20 23 07/09/2023 exerc ise stres s test No observ ation record ed. [address] [facility] [address], [place], [address], 07/16/2023 12:25:57 08/07/20 23 08/07/2023 US, echoc ardio gram No observ ation record ed. [address] [facility] [address], [place], [address], 08/08/2023 09:54:38 08/13/19 24 08/07/2023 CT, coron surekha calci um score No observ ation record ed. [address] [facility] [address], [place], [address], 08/14/2023 16:44:56 Result Notes None recorded. Problems Name Problem SNOMED Code Status Onset Date Resolution Date Notes Provider Name and Address Organization Details Recorded Time Rectal hemorrhage 92040292 Active 2021 Not Available [facility] 3 00:37:13 Ringing in ear 861650858 Active 2021 Not Available [facility] 3 00:37:13 Asymmetric al sensorineu ral hearing loss 704628077 Active 2021 Not Available [facility] 3 00:37:13 Bilateral tinnitus 9017321705563 Active 2021 Not Available [facility] 3 00:37:13 Tinnitus of left ear 2740225971076 Active 2021 Not Available [facility] 3 00:37:14 Prediabete s 608851607 Active 2021 Not Available [facility] 3 00:37:14 Essential hypertensi on 07391782 Active 2022 REAGAN [facility]mer[facility] [address], [address], [place], [address] , [employer] [facility] [employer] [facility] 3 20:13:01 Major depressive disorder 279993737 Active 2022 REAGAN [facility]mer[facility] [address], [address], [place], [address] , [employer] [facility] [employer] [facility] 3 20:13:12 Hyperlipid emia 78000336 Active 2022 JULIO CESAR Pl[facility]mer[facility] [address], [address], [place], [address] , [employer] - [employer] [facility] 3 20:13:17 Obesity 059054786 Active 2022 REAGAN [facility] [address], [address], [place], [address] , [employer] [place] [facility] 3 20:13:21 Insomnia 052247168 Active 2022 REAGAN [facility] [address], [address], [place], [address] , [employer] [facility] [employer] [facility] 3 20:14:20 Pain of ear 344673350 Active 2022 Sue combs[place] [facility] 3 14:58:50 Chest pain 12368119 Active 2022 Sue combs, [place] - [facility] [place] [facility] 3 15:52:31 Anxiety 72396372 Active 2022 LILLIE Plummer [address] [facility], [place] [address], [place], [address] , [facility] 3 12:09:38 Acute serous otitis media of right ear 8970083871176 105 Active 2022 LILLIE Plummer [address] [facility], [place] [address], [place], [address] , [facility] 3 12:10:55 Acute right otitis media 741470683 Active 2022 Sue Mcdowell null, [facility] 3 15:03:15 Anemia 946911986 Active 2023 Hillary García RMA null, [facility] 4 14:49:48 Upper respirator y infection 78152042 Active 2023 LILLIE Plummer [address], [address] , [facility] 4 16:18:28 Problem Notes None recorded. Procedures Surgical History Date Name Laterality Status Provider Name and Address Organization Details Recorded Time Ablation completed Not Available [facility] 00:35:01 Foot Surgery completed Not Available [facility] 10/11/2022 00:35:01 Imaging Results Imaging Date Name Status LastModified by Organization Details LastModified Time 05/28/2022 MRI, internal auditory canal, w/wo contrast completed MIGRATION.[id number] [facility] [address] [place], [address], 10/11/2022 00:40:12 05/28/2022 MRI, internal auditory canal, w/wo contrast completed MIGRATION.[id number] [address], [place], [address], 10/11/2022 00:40:12 05/28/2022 MRI, internal auditory canal, w/wo contrast completed MIGRATION.[id number] 2544 [place] [facility] [address], [place], [address], 10/11/2022 00:40:12 05/15/2022 audiogram + tympanogram completed MIGRATION.[id number] 5717 [facility] [place] [address], [place], [address], 10/11/2022 00:40:12 05/15/2022 audiogram + tympanogram completed MIGRATION.[id number] 6870 [facility] [address] [facility] [address], [place], [address], 10/11/2022 00:40:12 05/23/2023 XR, chest, 2 view completed [address] [facility] [address], [place], [address], 05/27/2023 10:00:00 06/27/2023 US, duplex, renal artery completed [address] [facility] [address], [place], [address], 06/28/2023 11:47:59 06/27/2023 home sleep study completed [address] [facility] [address], [place], [address], 07/08/2023 12:14:00 07/09/2023 exercise stress test completed [address] [facility] [address], [place], [address], 07/16/2023 12:25:57 08/07/2023 US, echocardiogram completed [address] [facility] [address], [place], [address], 08/08/2023 09:54:38 08/07/2023 CT, coronary calcium score completed [address] [facility] [address], [place], [address], 08/14/2023 16:44:56 Procedure Notes None recorded. Medical Equipment None Reported. Allergies Allergen ID Allergen Name Allergen Category Reaction Reaction Severity Criticality Documentation Date Start Date Code Code System Note Provider Name and Address Organization Details Recorded Time 91824 Product containin g penicilli n (product) medicatio n hives Not available Not available 10/11/2022 00601 8001 SNOMED Not Available [facility] 3 00:39:49 Medications Name Sig Start Date Stop [...] Date Recorded Body mass index (BMI) Body height Oxygen saturation Oxygen saturation in Arterial blood by Pulse oximetry Heart rate Body temperature Body weight Systolic blood pressure Diastolic blood pressure Provider Name and Address Organization Details Last Updated DateTime 2 38.4 kg/m2 165.1 cm 98 % 98 % 90 /min 97.4 [degF] 772701. 84 g 124 mm[Hg] 80 mm[Hg] Not Available [facility] 3 00:36:09 Date Recorded Body mass index (BMI) Body height Oxygen saturation Oxygen saturation in Arterial blood by Pulse oximetry Heart rate Body temperature Body weight Systolic blood pressure Diastolic blood pressure Provider Name and Address Organization Details Last Updated DateTime 2 36.8 kg/m2 165.1 cm 97 % 97 % 80 /min 97.2 [degF] 976940. 91 g 122 mm[Hg] 76 mm[Hg] Not Available [facility] 3 00:36:09 Date Recorded Body height Body mass index (BMI) Body weight Body temperature Heart rate Oxygen saturation Oxygen saturation in Arterial blood by Pulse oximetry Systolic blood pressure Diastolic blood pressure Provider Name and Address Organization Details Last Updated DateTime 3 165.1 cm 33.1 kg/m2 47578.8 8 g 97.4 [degF] 76 /min 98 % 98 % 126 mm[Hg] 78 mm[Hg] Hilda Schilling MA [facility] [employer] [facility] 3 16:31:49 Date Recorded Body height Body mass index (BMI) Body weight Body temperature Heart rate Oxygen saturation Oxygen saturation in Arterial blood by Pulse oximetry Systolic blood pressure Diastolic blood pressure Provider Name and Address Organization Details Last Updated DateTime 3 165.1 cm 34.8 kg/m2 29855.8 1 g 98.9 [degF] 78 /min 97 % 97 % 124 mm[Hg] 80 mm[Hg] Hilda SchillingADAMA [facility] [employer] [facility] 3 16:09:10 Date Recorded Body height Body mass index (BMI) Body weight Body temperature Heart rate Oxygen saturation Oxygen saturation in Arterial blood by Pulse oximetry Systolic blood pressure Diastolic blood pressure Provider Name and Address Organization Details Last Updated DateTime 3 165.1 cm 34.6 kg/m2 86850.2 1 g 97.8 [degF] 76 /min 98 % 98 % 118 mm[Hg] 80 mm[Hg] Hilda SchillingADAMA [facility] [employer] [facility] 3 11:36:57 Social History Question Answer Notes LastModified by Organizat ion Details LastModified Time Tobacco Smoking Status Former Smoker Not Available [facility] 10/11/2022 00:34:40 What Is Your Level Of Alcohol Consumption? None MIGRATION.82315 [id number] Information not available 10/11/2022 What Is Your Level Of Caffeine Consumption? None MIGRATION.03145 42162 Information not available 10/11/2022 In The 14 Days Before Symptom Onset, Have You Had Close Contact With A Laboratory-confi rmed COVID-19 While That Case Was Ill? No MIGRATION.06540 91649 Information not available 10/11/2022 In The 14 Days Before Symptom Onset, Have You Had Close Contact With A Person Who Is Under Investigation For COVID-19 While That Person Was Ill? No MIGRATION.84428 34315 Information not available 10/11/2022 What Type Of Diet Are You Following? REGULAR MIGRATION.41441 12246 Information not available 10/11/2022 What Is The Highest Grade Or Level Of School You Have Completed Or The Highest Degree You Have Received? 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 No MIGRATION.33093 77042 Information not available 10/11/2022 What Is The Fluoride Status Of Your Home? Unknown MIGRATION.81508 39756 Information not available 10/11/2022 When Did You Quit Smoking? 14+yearssincelastci torrey MIGRATION.98604 40799 Information not available 10/11/2022 Are There Any Guns Present In Your Home? No MIGRATION.71433 90092 Information not available 10/11/2022 Do You Use Insect Repellent Routinely? No MIGRATION.41939 80400 Information not available 10/11/2022 Where Do You Live? [place]House MIGRATION.14601 10481 Information not available 10/11/2022 What Was The Date Of Your Most Recent Tobacco Screening? 05/29/2023 [email or web address] Information not available 05/29/2023 Do You Have Any Pets? Yes MIGRATION.05542 66626 Information not available 10/11/2022 Do You Use Your Seat Belt Or Car Seat Routinely? Yes MIGRATION.20633 99592 Information not available 10/11/2022 Do You Have Smoke And Carbon Monoxide Detectors In Your Home? Yes MIGRATION.38581 03717 Information not available 10/11/2022 Are You Passively Exposed To Smoke? No MIGRATION.03499 42980 Information not available 10/11/2022 Are There Any Smokers In Your House? No MIGRATION.95902 47048 Information not available 10/11/2022 Do You Feel Stressed (tense, Restless, Nervous, Or Anxious, Or Unable To Sleep At Night)? [id number] MIGRATION.29120 76696 Information not available 10/11/2022 Do You Use Any Illicit Or Recreational Drugs? No MIGRATION.50451 41464 Information not available 10/11/2022 Do You Use Sunscreen Routinely? Yes MIGRATION.05282 03425 Information not available 10/11/2022 Have You Recently Traveled Abroad? No MIGRATION.26245 28115 Information not available 10/11/2022 Do You Have Any Dietary Restrictions? No MIGRATION.30105 19829 Information not available 10/11/2022 Sex: Unknown Functional Status Question Answer Note LastModified by Organizat ion Details LastModified Time What is your exercise level? Occasional [id number].[id number] 26 Information not available 10/11/2022 Mental Status None recorded. Family History Relationship Description Onset Age of this Age Resolved Age Notes LastModified by Organization Details LastModified Time Paternal Grandfather Diabetes mellitus MIGRATION.541 [id number] Not available 10/11/2022 00:35:05 Paternal Grandmother Diabetes mellitus MIGRATION.344 [id number] Not available 10/11/2022 00:35:06 Mother Disorder of thyroid gland MIGRATION.527 [id number] Not available 10/11/2022 00:35:06 Mother Hypertensive disorder MIGRATION.904 [id number] Not available 10/11/2022 00:35:06 Father Hypertensive disorder MIGRATION.034 [id number] Not available 10/11/2022 00:35:06 Father Vertigo MIGRATION.387 [id number] Not available 10/11/2022 00:35:06 Brother Hypertensive disorder X3 MIGRATION.516 [id number] Not available 10/11/2022 00:35:06 Medical History Condition Response NERVE DISEASE N BLINDNESS N RHEUMATIC FEVER N KIDNEY STONES N BLADDER PROBLEMS N MRSA N OTHER # 1 N POLIO N LUNG DISEASE/DISORDER N HISTORY OF DRUG ABUSE N COPD N RADIATION / CHEMOTHERAPY N Other # 2 N BLOOD DISEASES N EAR OR HEARING PROBLEMS N MUMPS N SHINGLES N BOWEL PROBLEMS N DEPRESSION (INCLUDING POST ) Y STROKE/TIA N ULCERS N BENIGN PROSTATIC HYPERPLASIA N MEASLES N HYPOTENSION N MYOCARDIAL INFARCTION N OBESITY N GERD/NAUSEA N ANEURYSM N URINARY/BLADDER/KIDNEY PROBLEMS N CORONARY ARTERY DISEASE (CAD) N ADDICTION CONCERNS N ENDOMETRIOSIS N Impotence N USE OF BLOOD THINNERS N SKIN [...] GLAUCOMA N FOOT PROBLEM N DIVERTICULITIS N CHICKENPOX N SLEEP APNEA N INFECTIOUS DISEASE N HEART ARRHYTHMIA N PROSTATE N INSOMNIA N HIGH CHOLESTEROL / HYPERLIPIDEMIA N HYPERTHYROIDISM N EYE PROBLEMS N EDEMA N CHRONIC PAIN SYNDROME N HYPOTHYROIDISM N CAROTID BLOCKAGE N CONSTIPATION N BACK / NECK PROBLEMS N HAVE YOU BEEN HOSPITALIZED OR SEEN IN [facility] ER IN THE PAST YEAR ? N ATHEROSCLEROSIS N BREAST PROBLEMS N DIALYSIS N ECZEMA N OSTEOPOROSIS N ARTHRITIS N NO SIGNIFICANT PAST MEDICAL HISTORY N APPENDICITIS N DIABETES, TYPE N BAD TEETH N ENT N HEARTBURN / REFLUX N AUTISM SPECTRUM DISORDER (ASD) N HEPATITIS / LIVER DISEASE N GOUT N SLEEP DISORDER N ALZHEIMER'S DISEASE N Brain Problems N HERPES N DEMENTIA N HEADACHES/MIGRAINES N SEIZURES/EPILEPSY N VASCULAR DISEASE N PACEMAKER N Blood Disorder N DIZZINESS N HEART DISEASE/HEART PROBLEMS N KIDNEY DISEASE N MULTIPLE SCLEROSIS N CARDIAC ARRHYTHMIA N CANCER: SPECIFY N ATRIAL FIBRILLATION N Gall Stones N PULMONARY EMBOLISM N AUTOIMMUNE DISEASE N Gynecological HistoryNo gynecological history recorded. Obstetrics History GPAL:G 0 P 0 0 0 0 Immunizations Vaccine Type Date Status Note Provider [facility] e and Address Organization Details Recorded Time COVID-19, mRNA, LNP-S, PF, 100 mcg/0.5mL dose or 50 mcg/0.25mL dose 10/31/2020 completed Not Available [facility] 3 00:39:45 COVID-19, mRNA, LNP-S, PF, 100 mcg/0.5mL dose or 50 mcg/0.25mL dose 09/28/2020 completed Not Available [facility] 3 00:39:45 Influenza, split virus, quadrivalent, PF 06/06/2022 completed Not Available [facility] 3 00:39:45 Past Encounters Encounter ID Performer Location Encounter Start Date Encounter Closed Date Diagnosis/Indication Diagnosis SNOMED-CT Code Diagnosis ICD10 Code Diagnosis Note [id number] [facility] [address] 11/08/2021 00:00:00 11/08/2021 16:32:15 [id number] [facility] [address] 12/06/2021 00:00:00 12/06/2021 21:02:18 [id number] [facility] ENT Lavon Alvares [address] [place] [address] 04/19/2022 00:00:00 04/19/2022 16:45:36 [id number] [place] [place] Janette sheehan [address] [facility] [place] [address] 06/06/2022 00:00:00 06/06/2022 17:37:03 [id number] [place] [place] Janette sheehan [address] [place] [address] 07/04/2022 00:00:00 07/04/2022 12:17:10 [id number] LILLIE Plummer [facility] Internal Med Janette sheehan [address] [place] [address] [place] [address] 11/14/2022 16:25:02 11/14/2022 16:48:00 Essential hypertension 29124736 I10 on lisinopril /HCTZ Prediabetes 020599823 R7 3.03 on Mounjaro per her request [...] or abdominal pain Major depr essive disorder 180223560 F32.9 on wellbutrin , sertraline , Rexultifol lows psychiatry - Leena Bajwa in [facility] office if any change in mood or behavior Hyperlipidemia 39687084 E78.5 mild, no medswork on diet/exerc ise Obesity 295206359 E66.9 recommend healthy, well balanced mealsfocus on lean meats, fresh vegetables , fresh fruits, whole grainsredu ce fast/proce ssed foods or eating out to no more than 1-2 times per weekaim to get 30 min of exercise most days of the week- walking is a great choicealso recommend resistance training 2-3 times per week Insomnia 154440683 G47.0 0 mood meds are managed by psychiatry [id number] LILLIE Plummer [facility] Internal Med Janette sheehan [address] [facility] [place] [address] 04/24/2023 16:00:05 04/24/2023 16:27:38 Essential hypertension 14783152 I10 on lisinopril /HCTZ Prediabetes 065941724 R7 3.03 insurance would no longer cover mounjaro, would not cover rosina hollis on lifestyle measures Major depr essive disorder 647220723 F32.9 on wellbutrin , sertraline , Rexultifol lows psychiatry - Leenahannah Bajwa in [facility] office if any change in mood or behavior Hyperlipidemia 21288985 E78.5 mild, no medswork on diet/exerc ise Obesity 216230468 E66.9 recommend healthy, well balanced mealsfocus on lean meats, fresh vegetables , fresh fruits, whole grainsredu ce fast/proce ssed foods or eating out to no more than 1-2 times per weekaim to get 30 min of exercise most days of the week- walking is a great choicealso recommend resistance training 2-3 times per week Insomnia 915545263 G47.0 0 mood meds are managed by psychiatry [id number] REAGAN PlummerMike [facility] Internal Med Janette sheehan [address] [place] [address] [place] [address] 05/29/2023 11:35:58 05/29/2023 11:47:02 Essential hypertension 77651673 I10 on lisinopril /HCTZ Prediabetes 009856371 R7 3.03 insurance would no longer cover mounjaro, would not cover rosina hollis on lifestyle measures Major depr essive disorder 221668037 F32.9 on wellbutrin , sertraline , Rexultifol lows audrey - Leena Bajwa in [facility] office if any change in mood or behavior Hyperlipidemia 42832387 E78.5 mild, no medswork on diet/exerc ise Obesity 340100201 E66.9 recommend healthy, well balanced mealsfocus on lean meats, fresh vegetables , fresh fruits, whole grainsredu ce fast/proce ssed foods or eating out to no more than 1-2 times per weekaim to get 30 min of exercise most days of the week- walking is a great choicealso recommend resistance training 2-3 times per week Insomnia [id number] G47.0 0 mood meds are managed by psychiatry Chest pain [id number] R07. 9 none todayER workup was negative for acute MIHas already been referred to cardiology - Dr. Aziza Canchola did give her the number again today, encouraged her to call to get her appt set upback to ER if any recurrence prior to cardiology appt Anxiety [id number] F41.9 follows psychiatry as aboveencou raged her to reach out to her psych to discuss her anxiety as she feels it's not controlled counseling recommende d- names/numb ers provided to patient todaycall office if any change in mood or behaviorER or 911 if any crisis situation develops Acute sero us otitis media of right ear [id number] H65.01 Start Zyrtec and FlonasePat ient states [...] Member ID Guarantor Name 11/14/2022 1 [employer] [id number] Katie Reyes [id number] Katie Reyes 04/24/2023 1 [employer] [id number] [facility] [id number] 2 Katie Greeneiba 05/29/2023 1 [employer] [id number] Katie [facility] [id number] 2 Katie Reyes Notes Date Note Type Note Provider Name [...] is due for labs. LILLIE Plummer [address], [place], [address], [employer] 11/14/2022 16:49:38 04/24/2023 text/html Jocelynn presents today [...] a copy of those. LILLIE Plummer [address], [address], [place], [address], [employer] 04/24/2023 17:08:33 05/29/2023 text/html Jocelynn presents today [...] allergy symptoms. LILLIE Plummer [address], [facility] [address], [place], [address], [place] - [facility] [employer] 05/29/2023 12:11:30 OBGyn Episode No OBEpisode recorded.
--- OUTSIDE RECORDS SUMMARY | 2024-10-26 18:44 | XMS_ITS | Continuity of Care Document ---
Author Organization [facility] Address [address] [place] [address] Phone Care Team Providers Care Diffusion Furnace Operator Name Role Phone Farias OD, Jose Unavailable [...] Est Office/outpatient Visit, Est Office/outpatient Visit, Est Oct--2007 Eye Exam Established Pt Oct- Eye Exam Established Pt Oct- Eye Exam Established Pt Oct- Office/outpatient Visit, Est Oct- Eye Exam Established Pt Oct- Office/outpatient Visit, Est Oct- Eye Exam Established Pt May- Advance Directives Directive Yes / No Effective Date File Name No Information Encounters Encounter Description Practice Location Reason(s) For Visit Diagnoses Date Provider Providers Copied on Encounter [facility], [address], [place], [place], [id number], [place] tel:[phone] [facility] No Information 1-201 0 Farias OD Jose. [address] , [address], [place], [address], [place]. tel:[phone] [facility], [address] [place] [address] [address], [place], [place], [address], [place] tel:[phone] [facility] No Information Mar-1 1-201 0 Farias OD Jose. [address] , [address], [place], [place], [facility], [place]. tel:[phone] Referring Provider: Jose Farias OD A, [address], [place], [place], [facility]. tel:[phone] [facility], [address] [place] [address] [address], [place], [place], [address], [place] tel:[phone] [facility] No Information Feb-0 9-201 0 Farias OD Jose. [address] [facility] , [address], [place], [place], [facility], [place]. tel:[phone] [facility], [address] [place] [address] [address], [place], [place], [address], [place] tel:[phone] [facility] No Information Neeraj-1 9-200 9 Farias OD Jose. [address], [address], [place], [place], [facility], [place]. tel:[phone] [facility], [address] [place] [address] [address], [place], [place], [address], [place] tel:[phone] [facility] No Information Neeraj-0 4-200 9 Farias OD Jose. [address] , [address], [place], [place], [facility], [place]. tel:[phone] Office/outpat ient Visit, Est [facility], [address] [place] [address] [address], [place], [place], [address], [place] tel:[phone] [facility] No Information Nov-2 0-200 8 Farias OD Jose. [address] , [address], [place], [address], [place]. tel:[phone] Office/outpat ient Visit, [facility], [address], [place], [place], [address], [place] tel:[phone] [facility] No Information Nov-1 3-200 8 Farias OD Jose. [address] , [address], [place], [facility], [place]. tel:[phone] Office/outpat ient Visit, [facility], [address] [place] [address] [address], [place], [place], [address], [place] tel:[phone] [facility] No Information Nov-1 2-200 8 Farias OD Jose. [address] [facility] , [address], [place], [facility], [place]. tel:[phone] Office/outpat ient Visit, [facility], [address] [place] [address] [address], [place], [place], [address], [place] tel:[phone] [facility] [place] No Information Oct-2 9-200 8 Farias OD Jose. [address], [place], [facility], [place]. tel:[phone] [facility], [address] [place] [address] [address], [place], [place], [address], [place] tel:[phone] [facility] [place] No Information Oct-2 0-200 8 Krishnasamy Blaze. [facility] [address], [place], [place], [facility], [place]. tel:[phone] [facility], [address] [place] [address] [address], [place], [place], [address], [place] tel:[phone] [facility] No Information Oct-1 5-200 8 Krishnasamy Blaze. [address] [facility] [place] [address], [place], [facility], [place]. tel:[phone] [facility], [address], [place], [place], [address], [place] tel:[phone] [facility] [place] No Information Oct-1 3-200 8 Krishnasamy Blaze. [address], [place], [facility], [place]. tel:[phone] Office/outpat ient Visit, [facility], [address] [place] [address] [address], [place], [place], [address], [place] tel:[phone] [facility] No Information Oct-1 0-200 8 Krishnasamy [address]aze. [address] [facility] [address], [place], [facility], [place]. tel:[phone] [facility], [address], [place], [place], [address], [place] tel:[phone] [facility] No Information Oct-0 8-200 8 Doisy Edward. [facility] , [address], [place], [facility], [place]. tel:[phone] [facility]outpat ient [facility], [facility], [address], [place], [place], [address], [place] tel:[phone] [facility] No Information Oct-0 7-200 8 Leonor Camejo. [address], [place], [facility], [place]. tel:[phone] [facility], [address] [place] [address] [address], [place], [place], [address], [place] tel:[phone] [facility] No Information Oct-0 6-200 8 Doisy Edward. [address] , [address], [place], [facility], [place]. tel:[phone] Family History Family Member Type Diagnosis Age At Onset No Information Payers Payer name Insurance type Covered constitution party ID Hayder owen(s) [employer] Plan [id number] Social History Type Description Quantity Date Captured [...]
--- OUTSIDE RECORDS SUMMARY | 2024-10-26 18:44 | XMS_ITS | Referral Summary ---
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
--- OUTSIDE RECORDS SUMMARY | 2024-10-26 18:44 | XMS_ITS | Referral Summary ---
Author Organization [facility] Address [address] [place] [address] Care Team Providers Care Bulker Name Role Phone Kelvin Tam DO Primary Care Provider [phone] Source Comments [facility],non-owned Affiliates and Associated Physician Practices is amultiple site organization consisting of ambulatory clinics and hospital sitesin [place], [place], [place] and [place]. This disclosure is being madepursuant to the Care Everywhere program and may not contain all information available regarding this patient. 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 Pulse 124 09/28/2019 12:38 PM MEDICAL GRADE SHOEMAKER Temperature 39.1 C (102.4 F) 09/28/2019 12:38 PM MEDICAL GRADE SHOEMAKER Respiratory Rate 16 09/28/2019 12:38 PM MEDICAL GRADE SHOEMAKER Oxygen Saturation 98% 09/28/2019 12:38 PM MEDICAL GRADE SHOEMAKER Inhaled Oxygen Concentration - - Weight 90.7 kg (200 lb) 09/28/2019 12:38 PM MEDICAL GRADE SHOEMAKER Height 165.1 cm (5' 5 ) 09/28/2019 12:38 PM MEDICAL GRADE SHOEMAKER Body Mass Index 33.28 09/28/2019 12:38 PM MEDICAL GRADE SHOEMAKER Plan of Treatment Not on file Care Teams Bulker Relationship Specialty Start Date End Date Kelvin Tam DO PCP - General Internal Medicine 06/27/19
--- OUTSIDE RECORDS SUMMARY | 2024-10-26 18:44 | XMS_ITS | Clinical Summary ---
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
--- OUTSIDE RECORDS SUMMARY | 2024-10-26 18:44 | XMS_ITS | Data Portability ---
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 Name Role Phone GOGO MATA Primary Care [...] A1c), blood 2023 024 [facility], [address] [facility] [address], [address], 06/25/2024 11:17:01 CMP, serum or plasma 2023 024 [facility], [address] [facility], [facility], [place], [address], 06/25/2024 11:17:00 lipid panel, serum 2023 024 [facility], [address] [place] [address], [facility], [place], [address], 06/25/2024 11:16:59 iron + TIBC + ferritin, serum 2023 024 [facility], [address] [place] [address], [facility], [place], [address], 06/25/2024 11:17:05 CBC w/ auto diff 2023 024 [facility], [address] [place] [address], [facility], [place], [address], 06/25/2024 11:17:04 insulin, serum 2023 024 [facility], [address] [place] [address], [facility], [place], [address], 06/25/2024 11:17:02 insulin, serum 2023 024 [facility], [address] [place] [address], [facility], [place], [address], 11/24/2023 12:36:02 HbA1c (hemoglob in A1c), blood 2023 024 [facility], [address] [place] [address], [facility], [place], [address], 11/24/2023 12:36:01 CMP, serum or plasma 2023 024 [facility], [facility], [facility], [place], [address], 11/24/2023 12:36:00 lipid panel, serum 2023 024 [facility], [address] [place] [address], [facility], [place], [address], 11/24/2023 12:35:59 TSH + free T4, serum 2023 024 [facility], [address] [facility], [facility], [place], [address], 11/24/2023 12:36:00 iron + TIBC + ferritin, serum 2023 024 [facility], [address] [facility], [facility], [place], [address], 11/24/2023 12:36:03 CBC w/ auto diff 2023 024 [facility], [address] [facility], [facility], [place], [address], 11/24/2023 12:36:02 vitamin B12 + folate, serum or blood 2023 024 [facility], [address] [facility], [facility], [place], [address], 11/24/2023 12:36:01 Referral None recorded. Procedures None recorded. Surgeries None recorded. Imaging XR, chest, 2 view 2023 [facility], [address] [place] [address] , [address], [place], [address], 11/20/2023 17:07:18 Medication Orders lisinopri l 10 mg-hydroc hlorothia zide 12.5 mg tablet 2023 024 [facility], [address] [place] [address], [address], 06/02/2024 17:40:07 bupropion HCl XL 150 mg 24 hr tablet, extended release 2023 024 [facility], [address] [place] [address], [address], 06/01/2024 17:07:40 Zepbound 2.5 mg/0.5 mL subcutane ous pen injector 2023 024 [facility][id number], [address], [place], [place], [id number], 06/28/2024 11:53:24 Medrol (Flaquito) 4 mg tablets in a dose pack 2023 [facility] #[id number], [address], [place], [place], [id number], 06/01/2024 17:05:33 cefdinir 300 mg capsule [address] [facility][id number], [address], [place], [place], [id number], 08/06/2024 10:45:38 hydrocodo ne 10 mg-chlorp heniramin e 8 mg/5 mL oral susp extend.re l 12hr [address] [facility][id number], [address], [place], [place], [id number], 12/24/2023 13:57:34 azithromy júnior 250 mg tablet [address] [facility] #[id number], [address], [place], [place], [id number], 09/09/2024 14:04:50 sertralin e 100 mg tablet 2023 [facility], [facility], [place], [address], 11/20/2023 15:47:10 bupropion HCl XL 300 mg 24 hr tablet, extended release 2023 [facility], [facility], [place], [address], 06/01/2024 17:11:20 Flovent HFA 110 mcg/actua tion aerosol inhaler 2023 024 [facility][id number], [address], [place], [place], [id number], 11/20/2023 15:44:42 Patient TargetsNo targets recorded. Patient Instructions Encounter Date Encounter Id Patient Instructions Last Modified By Organization Details Last Modified Time 11/20/2023 [id number] A healthy lifestyle: care instructions Not available 11/20/2023 15:44:11 06/01/2024 [id number] A healthy lifestyle: care instructions Not available 06/01/2024 17:07:38 Reason for Referral None Reported. Results Created Date Observation Date Name Description Value Unit Range Abnormal Flag Note LastModifiedBy Organization Detail LastModifiedTime 11/22/19 24 11/23/2023 LIPID PANEL W/ CHOL/ HDL RATIO cholesterol, total 204 mg/dL 100-19 9 above high normal Not Available [facility] ([facility]) [address] [place], [address], 11/24/2023 12:35:59 11/22/19 24 11/23/2023 LIPID PANEL W/ CHOL/ HDL RATIO triglyceride s 114 mg/dL 0-149 Not Available [facility] ([facility]) [address] [place], [address], 11/24/2023 12:35:59 11/22/19 24 11/23/2023 LIPID PANEL W/ CHOL/ HDL RATIO HDL cholesterol 52 mg/dL >39 Not Available [facility] ([facility]) [address] [place], [address], 11/24/2023 12:35:59 11/22/19 24 11/23/2023 LIPID PANEL W/ CHOL/ HDL RATIO VLDL cholesterol anish 20 mg/dL 5-40 Not Available [facility] ([facility]) [address] [place], [address], 11/24/2023 12:35:59 11/22/19 24 11/23/2023 LIPID PANEL W/ CHOL/ HDL RATIO LDL chol calc ([facility]) 132 mg/dL 0-99 above high normal Not Available [facility] ([facility]) [address] [place], [address], 11/24/2023 12:35:59 11/22/19 24 11/23/2023 LIPID PANEL W/ CHOL/ HDL RATIO T. chol/HDL ratio 3.9 ratio 0.0-4. 4 T. Chol/ HDL Ratio Men Women 1/2 Avg.R isk 3.4 3.3 Avg.R isk 5.0 4.4 2X Avg.R isk 9.6 7.1 3X Avg.R isk 23.4 11.0 Not Available [facility] ([facility]) [address] [place], [address], 11/24/2023 12:35:59 11/22/19 24 11/23/2023 TSH+F REE T4 TSH 0.879 uIU/m L 0.450- 4.500 Not Available [facility] ([facility]) [address] [place], [address], 11/24/2023 12:35:59 11/22/19 24 11/23/2023 TSH+F REE T4 T4,free(dire ct) 1.14 NG/dL 0.82-1 .77 Not Available [facility] ([facility]) [address] [place], [address], 11/24/2023 12:35:59 11/22/19 24 11/23/2023 COMP. METAB OLIC PANEL (14) glucose 95 mg/dL 70-99 Not Available [facility] ([facility]) [address] [place], [address], 11/24/2023 12:36:00 11/22/19 24 11/23/2023 COMP. METAB OLIC PANEL (14) BUN 16 mg/dL 6-24 Not Available [facility] ([facility]) [address] [facility] [place], [address], 11/24/2023 12:36:00 11/22/19 24 11/23/2023 COMP. METAB OLIC PANEL (14) creatinine 0.74 mg/dL 0.57-1 .00 Not Available [facility] ([facility]) [address] [facility] [place], [address], 11/24/2023 12:36:00 11/22/19 24 11/23/2023 COMP. METAB OLIC PANEL (14) eGFR 99 mL/mi n/1.7 3 >59 Not Available [facility] ([facility]) [address] [facility] [place], [address], 11/24/2023 12:36:00 11/22/19 24 11/23/2023 COMP. METAB OLIC PANEL (14) BUN/creatini ne ratio 22 9-23 Not Available [facility] ([facility]) [address] [facility] [place], [address], 11/24/2023 12:36:00 11/22/19 24 11/23/2023 COMP. METAB OLIC PANEL (14) sodium 138 mmol/ L 134-14 4 Not Available [facility] ([facility]) [address] [facility] [place], [address], 11/24/2023 12:36:00 11/22/19 24 11/23/2023 COMP. METAB OLIC PANEL (14) potassium 4.2 mmol/ L 3.5-5. 2 Not Available [facility] ([facility]) [address] [facility] [place], [address], 11/24/2023 12:36:00 11/22/19 24 11/23/2023 COMP. METAB OLIC PANEL (14) chloride 102 mmol/ L 96-106 Not Available [facility] ([facility]) [address] [facility] [place], [address], 11/24/2023 12:36:00 04/12/20 24 11/23/2023 COMP. METAB OLIC PANEL (14) carbon dioxide, total 24 mmol/ L 20- Not Available [facility] ([facility]) [address] [place], [address], 11/24/2023 12:36:00 11/22/19 24 11/23/2023 COMP. METAB OLIC PANEL (14) calcium 8.6 mg/dL 8.7-10 .2 below low normal Not Available [facility] ([facility]) [address] [place], [address], 11/24/2023 12:36:00 11/22/19 24 11/23/2023 COMP. METAB OLIC PANEL (14) protein, total 6.3 g/dL 6.0-8. 5 Not Available [facility] ([facility]) [address] [place], [address], 11/24/2023 12:36:00 11/22/19 24 11/23/2023 COMP. METAB OLIC PANEL (14) albumin 4.1 g/dL 3.9-4. 9 Not Available [facility] ([facility]) [address] [place], [address], 11/24/2023 12:36:00 11/22/19 24 11/23/2023 COMP. METAB OLIC PANEL (14) globulin, total 2.2 g/dL 1.5-4. 5 Not Available [facility] ([facility]) [address] [place], [address], 11/24/2023 12:36:00 11/22/19 24 11/23/2023 COMP. METAB OLIC PANEL (14) A/G ratio 1.9 1.2-2. 2 Not Available [facility] ([facility]) [address] [facility] [place], [address], 11/24/2023 12:36:00 11/22/19 24 11/23/2023 COMP. METAB OLIC PANEL (14) bilirubin, total 0.3 mg/dL 0.0-1. 2 Not Available [facility] ([facility]) [address] [facility] [place], [address], 11/24/2023 12:36:00 11/22/19 24 11/23/2023 COMP. METAB OLIC PANEL (14) alkaline phosphatase 83 IU/L 44-121 Not Available [facility] ([facility]) [address] [facility], [place], [address], 11/24/2023 12:36:00 11/22/19 24 11/23/2023 COMP. METAB OLIC PANEL (14) AST (SGOT) 13 IU/L 0-40 Not Available [facility] ([facility]) [address] [facility] [place], [address], 11/24/2023 12:36:00 11/22/19 24 11/23/2023 COMP. METAB OLIC PANEL (14) ALT (SGPT) 16 IU/L 0-32 Not Available [facility] ([facility]) [address] [facility] [place], [address], 11/24/2023 12:36:00 11/22/19 24 11/23/2023 VITAM IN B12 AND FOLAT E vitamin B12 972 pg/mL 232-12 45 Not Available [facility] ([facility]) [address] [facility] [place], [address], 11/24/2023 12:36:00 11/22/19 24 11/23/2023 VITAM IN B12 AND FOLAT E folate (folic acid), serum >20.0 NG/mL >3.0 A serum folat e bruno ntrat ion of less than 3.1 ng/mL is consi dered to repre sent clini anish defic iency . Not Available [facility] ([facility]) [address] [facility], [place], [address], 11/24/2023 12:36:00 11/22/19 24 11/23/2023 HEMOG LOBIN A1C hemoglobin A1C 6.0 % 4.8-5. 6 above high normal Predi abete s: 5.7 - 6.4 Diabe amanda: >6.4 Glyce arturo contr ol for adult s with diabe amanda: <7.0 Not Available [facility] ([facility]) [address] [facility], [place], [address], 11/24/2023 12:36:01 11/22/19 24 11/24/2023 INSUL IN insulin 13.3 uIU/m L 2.6-24 .9 Not Available [facility] ([facility]) [address] [facility], [place], [address], 11/24/2023 12:36:02 11/22/19 24 11/23/2023 CBC WITH DIFFE RENTI AL/PL ATELE T WBC 6.0 x10e3 /uL 3.4-10 .8 Not Available [facility] ([facility]) [address] [facility], [place], [address], 11/24/2023 12:36:02 11/22/19 24 11/23/2023 CBC WITH DIFFE RENTI AL/PL ATELE T RBC 4.36 x10e6 /uL 3.77-5 .28 Not Available [facility] ([facility]) [address] [place], [address], 11/24/2023 12:36:02 11/22/19 24 11/23/2023 CBC WITH DIFFE RENTI AL/PL ATELE T hemoglobin 12.1 g/dL 11.1-1 5.9 Not Available [facility] ([facility]) [address] [place], [address], 11/24/2023 12:36:02 11/22/19 24 11/23/2023 CBC WITH DIFFE RENTI AL/PL ATELE T hematocrit 37.5 % 34.0-4 6.6 Not Available [facility] ([facility]) [address] [facility], [place], [address], 11/24/2023 12:36:02 11/22/19 24 11/23/2023 CBC WITH DIFFE RENTI AL/PL ATELE T MCV 86 fL 79-97 Not Available [facility] ([facility]) [address] [facility], [place], [address], 11/24/2023 12:36:02 11/22/19 24 11/23/2023 CBC WITH DIFFE RENTI AL/PL ATELE T MCH 27.8 pg 26.6-3 3.0 Not Available [facility] ([facility]) [address] [facility], [place], [address], 11/24/2023 12:36:02 11/22/19 24 11/23/2023 CBC WITH DIFFE RENTI AL/PL ATELE T MCHC 32.3 g/dL 31.5-3 5.7 Not Available [facility] ([facility]) [address] [facility], [place], [address], 11/24/2023 12:36:02 11/22/19 24 11/23/2023 CBC WITH DIFFE RENTI AL/PL ATELE T RDW 15.5 % 11.7-1 5.4 above high normal Not Available [facility] ([facility]) [address] [facility], [place], [address], 11/24/2023 12:36:02 11/22/19 24 11/23/2023 CBC WITH DIFFE RENTI AL/PL ATELE T platelets 312 x10e3 /uL 150-45 0 Not Available [facility] ([facility]) [address] [place], [address], 11/24/2023 12:36:02 11/22/19 24 11/23/2023 CBC WITH DIFFE RENTI AL/PL ATELE T neutrophils 59 % notest ab. Not Available [facility] ([facility]) [address] [facility], [place], [address], 11/24/2023 12:36:02 11/22/19 24 11/23/2023 CBC WITH DIFFE RENTI AL/PL ATELE T lymphs 25 % notest ab. Not Available [facility] ([facility]) [address] [facility], [place], [address], 11/24/2023 12:36:02 11/22/19 24 11/23/2023 CBC WITH DIFFE RENTI AL/PL ATELE T monocytes 9 % notest ab. Not Available [facility] ([facility]) [address] [facility], [place], [address], 11/24/2023 12:36:02 11/22/19 24 11/23/2023 CBC WITH DIFFE RENTI AL/PL ATELE T eos 5 % notest ab. Not Available [facility] ([facility]) [address] [facility], [place], [address], 11/24/2023 12:36:02 11/22/19 24 11/23/2023 CBC WITH DIFFE RENTI AL/PL ATELE T basos 1 % notest ab. Not Available [facility] ([facility]) [address] [facility], [place], [address], 11/24/2023 12:36:02 11/22/19 24 11/23/2023 CBC WITH DIFFE RENTI AL/PL ATELE T neutrophils (absolute) 3.6 x10e3 /uL 1.4-7. 0 Not Available [facility] ([facility]) [address] [facility], [place], [address], 11/24/2023 12:36:02 11/22/19 24 11/23/2023 CBC WITH DIFFE RENTI AL/PL ATELE T lymphs (absolute) 1.5 x10e3 /uL 0.7-3. 1 Not Available [facility] ([facility]) [address] [place], [address], 11/24/2023 12:36:02 11/22/19 24 11/23/2023 CBC WITH DIFFE RENTI AL/PL ATELE T monocytes(ab solute) 0.5 x10e3 /uL 0.1-0. 9 Not Available [facility] ([facility]) [address] [facility], [place], [address], 11/24/2023 12:36:02 11/22/19 24 11/23/2023 CBC WITH DIFFE RENTI AL/PL ATELE T eos (absolute) 0.3 x10e3 /uL 0.0-0. 4 Not Available [facility] ([facility]) [address] [facility], [place], [address], 11/24/2023 12:36:02 11/22/19 24 11/23/2023 CBC WITH DIFFE RENTI AL/PL ATELE T baso (absolute) 0.1 x10e3 /uL 0.0-0. 2 Not Available [facility] ([facility]) [address] [facility], [place], [address], 11/24/2023 12:36:02 11/22/19 24 11/23/2023 CBC WITH DIFFE RENTI AL/PL ATELE T immature granulocytes 1 % notest ab. Not Available [facility] ([facility]) [address] [facility], [place], [address], 11/24/2023 12:36:02 11/22/19 24 11/23/2023 CBC WITH DIFFE RENTI AL/PL ATELE T immature grans (abs) 0.0 x10e3 /uL 0.0-0. 1 Not Available [facility] ([facility]) [address] [place], [address], 11/24/2023 12:36:02 11/22/19 24 11/23/2023 FE+TI BC+FE R iron bind.cap.(TI BC) 323 ug/dL 250-45 0 Not Available [facility] ([facility]) [address] [facility], [place], [address], 11/24/2023 12:36:03 11/22/19 24 11/23/2023 FE+TI BC+FE R UIBC 267 ug/dL 131-42 5 Not Available [facility] ([facility]) [address] [place], [address], 11/24/2023 12:36:03 11/22/19 24 11/23/2023 FE+TI BC+FE R iron 56 ug/dL 27-159 Not Available [facility] ([facility]) [address] [place], [address], 11/24/2023 12:36:03 11/22/19 24 11/23/2023 FE+TI BC+FE R iron saturation 17 % 15-55 Not Available [facility] ([facility]) [address] [place], [address], 11/24/2023 12:36:03 11/22/19 24 11/23/2023 FE+TI BC+FE R ferritin 21 NG/mL 15-150 Not Available [facility] ([facility]) [address] [place], [address], 11/24/2023 12:36:03 06/24/20 24 06/25/2024 LIPID PANEL cholesterol, total 258 mg/dL 100-19 9 above high normal Not Available [facility] ([facility]) [address] [place], [address], 06/25/2024 11:16:59 06/24/20 24 06/25/2024 LIPID PANEL triglyceride s 210 mg/dL 0-149 above high normal Not Available [facility] ([facility]) [address] [place], [address], 06/25/2024 11:16:59 06/24/20 24 06/25/2024 LIPID PANEL HDL cholesterol 54 mg/dL >39 Not Available [facility] ([facility]) [address] [facility], [place], [address], 06/25/2024 11:16:59 06/24/20 24 06/25/2024 LIPID PANEL VLDL cholesterol anish 39 mg/dL 5-40 Not Available [facility] ([facility]) [address] [place], [address], 06/25/2024 11:16:59 06/24/20 24 06/25/2024 LIPID PANEL LDL chol calc ([facility]) 165 mg/dL 0-99 above high normal Not Available [facility] ([facility]) [address] [place], [address], 06/25/2024 11:16:59 06/24/20 24 06/25/2024 COMP. METAB OLIC PANEL (14) glucose 134 mg/dL 70-99 above high normal Not Available [facility] ([facility]) [address] [place], [address], 06/25/2024 11:17:00 06/24/20 24 06/25/2024 COMP. METAB OLIC PANEL (14) BUN 17 mg/dL 6-24 Not Available [facility] ([facility]) [address] [place], [address], 06/25/2024 11:17:00 06/24/20 24 06/25/2024 COMP. METAB OLIC PANEL (14) creatinine 0.64 mg/dL 0.57-1 .00 Not Available [facility] ([facility]) [address] [place], [address], 06/25/2024 11:17:00 06/24/20 24 06/25/2024 COMP. METAB OLIC PANEL (14) eGFR 107 mL/mi n/1.7 3 >59 Not Available [facility] ([facility]) [address] [place], [address], 06/25/2024 11:17:00 06/24/20 24 06/25/2024 COMP. METAB OLIC PANEL (14) BUN/creatini ne ratio 27 9-23 above high normal Not Available [facility] ([facility]) [address] [facility], [place], [address], 06/25/2024 11:17:00 06/24/20 24 06/25/2024 COMP. METAB OLIC PANEL (14) sodium 137 mmol/ L 134-14 4 Not Available [facility] ([facility]) [address] [facility] [place], [address], 06/25/2024 11:17:00 06/24/20 24 06/25/2024 COMP. METAB OLIC PANEL (14) potassium 4.1 mmol/ L 3.5-5. 2 Not Available [facility] ([facility]) [address] [place], [address], 06/25/2024 11:17:00 06/24/20 24 06/25/2024 COMP. METAB OLIC PANEL (14) chloride 100 mmol/ L 96-106 Not Available [facility] ([facility]) [address] [place], [address], 06/25/2024 11:17:00 06/24/20 24 06/25/2024 COMP. METAB OLIC PANEL (14) carbon dioxide, total 25 mmol/ L 20-29 Not Available [facility] ([facility]) [address] [place], [address], 06/25/2024 11:17:00 06/24/20 24 06/25/2024 COMP. METAB OLIC PANEL (14) calcium 9.2 mg/dL 8.7-10 .2 Not Available [facility] ([facility]) [address] [place], [address], 06/25/2024 11:17:00 06/24/20 24 06/25/2024 COMP. METAB OLIC PANEL (14) protein, total 6.5 g/dL 6.0-8. 5 Not Available [facility] ([facility]) [address] [facility] [place], [address], 06/25/2024 11:17:00 06/24/20 24 06/25/2024 COMP. METAB OLIC PANEL (14) albumin 4.2 g/dL 3.8-4. 9 Not Available [facility] ([facility]) [address] [facility] [place], [address], 06/25/2024 11:17:00 06/24/20 24 06/25/2024 COMP. METAB OLIC PANEL (14) globulin, total 2.3 g/dL 1.5-4. 5 Not Available [facility] ([facility]) [address] [facility] [place], [address], 06/25/2024 11:17:00 06/24/20 24 06/25/2024 COMP. METAB OLIC PANEL (14) bilirubin, total 0.2 mg/dL 0.0-1. 2 Not Available [facility] ([facility]) [address] [facility] [place], [address], 06/25/2024 11:17:00 06/24/20 24 06/25/2024 COMP. METAB OLIC PANEL (14) alkaline phosphatase 86 IU/L 44-121 Not Available [facility]) [address] [facility] [place], [address], 06/25/2024 11:17:00 06/24/20 24 06/25/2024 COMP. METAB OLIC PANEL (14) AST (SGOT) 22 IU/L 0-40 Not Available [facility] ([facility]) [address] [facility] [place], [address], 06/25/2024 11:17:00 06/24/20 24 06/25/2024 COMP. METAB OLIC PANEL (14) ALT (SGPT) 20 IU/L 0-32 Not Available [facility] ([facility]) [address] [facility], [place], [address], 06/25/2024 11:17:00 06/24/2006/25/2024 HEMOG LOBIN A1C hemoglobin A1C 6.3 % 4.8-5. 6 above high normal Predi abete s: 5.7 - 6.4 Diabe amanda: >6.4 Glyce arturo contr ol for adult s with diabe amanda: <7.0 Not Available [facility] ([facility]) [address] [facility], [place], [address], 06/25/2024 11:17:01 06/24/2006/25/2024 INSUL IN insulin 129.0 uIU/m L 2.6-24 .9 above high normal Not Available [facility] ([facility]) [address] [facility], [place], [address], 06/25/2024 11:17:02 06/24/20 24 06/25/2024 CBC WITH DIFFE RENTI AL/PL ATELE T WBC 7.1 x10e3 /uL 3.4-10 .8 Not Available [facility] ([facility]) [address] [facility], [place], [address], 06/25/2024 11:17:04 06/24/20 24 06/25/2024 CBC WITH DIFFE RENTI AL/PL ATELE T RBC 4.28 x10e6 /uL 3.77-5 .28 Not Available [facility] ([facility]) [address] [place], [address], 06/25/2024 11:17:04 06/24/20 24 06/25/2024 CBC WITH DIFFE RENTI AL/PL ATELE T hemoglobin 12.6 g/dL 11.1-1 5.9 Not Available [facility] ([facility]) [address] [place], [address], 06/25/2024 11:17:04 06/24/20 24 06/25/2024 CBC WITH DIFFE RENTI AL/PL ATELE T hematocrit 38.7 % 34.0-4 6.6 Not Available [facility] ([facility]) [address] [facility], [place], [address], 06/25/2024 11:17:04 06/24/20 24 06/25/2024 CBC WITH DIFFE RENTI AL/PL ATELE T MCV 90 fL 79-97 Not Available [facility] ([facility]) [address] [facility], [place], [address], 06/25/2024 11:17:04 06/24/20 24 06/25/2024 CBC WITH DIFFE RENTI AL/PL ATELE T MCH 29.4 pg 26.6-3 3.0 Not Available [facility] ([facility]) [address] [facility], [place], [address], 06/25/2024 11:17:04 06/24/20 24 06/25/2024 CBC WITH DIFFE RENTI AL/PL ATELE T MCHC 32.6 g/dL 31.5-3 5.7 Not Available [facility] ([facility]) [address] [facility] [address], [place], [address], 06/25/2024 11:17:04 06/24/20 24 06/25/2024 CBC WITH DIFFE RENTI AL/PL ATELE T RDW 13.5 % 11.7-1 5.4 Not Available [facility] ([facility]) [address] [facility] [address], [place], [address], 06/25/2024 11:17:04 06/24/20 24 06/25/2024 CBC WITH DIFFE RENTI AL/PL ATELE T platelets 290 x10e3 /uL 150-45 0 Not Available [facility] ([facility]) [address] [facility] [address], [place], [address], 06/25/2024 11:17:04 06/24/20 24 06/25/2024 CBC WITH DIFFE RENTI AL/PL ATELE T neutrophils 68 % notest ab. Not Available [facility] ([facility]) [address] [facility], [place], [address], 06/25/2024 11:17:04 06/24/20 24 06/25/2024 CBC WITH DIFFE RENTI AL/PL ATELE T lymphs 23 % notest ab. Not Available [facility] ([facility]) [address] [facility], [place], [address], 06/25/2024 11:17:04 06/24/20 24 06/25/2024 CBC WITH DIFFE RENTI AL/PL ATELE T monocytes 6 % notest ab. Not Available [facility] ([facility]) [address] [facility], [place], [address], 06/25/2024 11:17:04 06/24/20 24 06/25/2024 CBC WITH DIFFE RENTI AL/PL ATELE T eos 2 % notest ab. Not Available [facility] ([facility]) [address] [place], [address], 06/25/2024 11:17:04 06/24/20 24 06/25/2024 CBC WITH DIFFE RENTI AL/PL ATELE T basos 1 % notest ab. Not Available [facility] ([facility]) [address] [facility], [place], [address], 06/25/2024 11:17:04 06/24/20 24 06/25/2024 CBC WITH DIFFE RENTI AL/PL ATELE T neutrophils (absolute) 4.8 x10e3 /uL 1.4-7. 0 Not Available [facility] ([facility]) [address] [facility], [place], [address], 06/25/2024 11:17:04 06/24/20 24 06/25/2024 CBC WITH DIFFE RENTI AL/PL ATELE T lymphs (absolute) 1.6 x10e3 /uL 0.7-3. 1 Not Available [facility] ([facility]) [address] [facility], [place], [address], 06/25/2024 11:17:04 06/24/20 24 06/25/2024 CBC WITH DIFFE RENTI AL/PL ATELE T monocytes(ab solute) 0.4 x10e3 /uL 0.1-0. 9 Not Available [facility] ([facility]) [address] [facility], [place], [address], 06/25/2024 11:17:04 06/24/20 24 06/25/2024 CBC WITH DIFFE RENTI AL/PL ATELE T eos (absolute) 0.1 x10e3 /uL 0.0-0. 4 Not Available [facility] ([facility]) [address] [facility], [place], [address], 06/25/2024 11:17:04 06/24/20 24 06/25/2024 CBC WITH DIFFE RENTI AL/PL ATELE T baso (absolute) 0.1 x10e3 /uL 0.0-0. 2 Not Available [facility] ([facility]) [address] [facility], [place], [address], 06/25/2024 11:17:04 06/24/20 24 06/25/2024 CBC WITH DIFFE RENTI AL/PL ATELE T immature granulocytes 0 % notest ab. Not Available [facility] ([facility]) [address] [facility], [place], [address], 06/25/2024 11:17:04 06/24/20 24 06/25/2024 CBC WITH DIFFE RENTI AL/PL ATELE T immature grans (abs) 0.0 x10e3 /uL 0.0-0. 1 Not Available [facility] ([facility]) [address] [facility], [place], [address], 06/25/2024 11:17:04 06/24/20 24 06/25/2024 FE+TI BC+FE R iron bind.cap.(TI BC) 348 ug/dL 250-45 0 Not Available [facility] ([facility]) [address] [place], [address], 06/25/2024 11:17:05 06/24/20 24 06/25/2024 FE+TI BC+FE R UIBC 283 ug/dL 131-42 5 Not Available [facility] ([facility]) [address] [facility], [place], [address], 06/25/2024 11:17:05 06/24/20 24 06/25/2024 FE+TI BC+FE R iron 65 ug/dL 27-159 Not Available [facility] ([facility]) [address] [place], [address], 06/25/2024 11:17:05 06/24/20 24 06/25/2024 FE+TI BC+FE R iron saturation 19 % 15-55 Not Available [facility] ([facility]) [address] [place], [address], 06/25/2024 11:17:05 06/24/20 24 06/25/2024 FE+TI BC+FE R ferritin 28 NG/mL 15-150 Not Available [facility] ([facility]) [address] [place], [address], 06/25/2024 11:17:05 10/17/19 25 10/17/2024 MICRO SCOPI C EXAMI NATIO N WBC 0-5 /hpf 0-5 Not Available [facility] ([facility]) [address] [place], [address], 10/17/2024 07:08:04 10/17/19 25 10/17/2024 MICRO SCOPI C EXAMI NATIO N RBC None seen /hpf 0-2 Not Available [facility] ([facility]) [address] [place], [address], 10/17/2024 07:08:04 10/17/19 25 10/17/2024 MICRO SCOPI C EXAMI NATIO N epithelial cells (non renal) None seen /hpf 0-10 Not Available [facility] ([facility]) [address], [place], [address], 10/17/2024 07:08:04 10/17/19 25 10/17/2024 MICRO SCOPI C EXAMI NATIO N casts None seen /lpf nonese en Not Available [facility] ([facility]) [address], [place], [address], 10/17/2024 07:08:04 10/17/19 25 10/17/2024 MICRO SCOPI C EXAMI NATIO N bacteria Few nonese en/few Not Available [facility] ([facility]) [address], [place], [address], 10/17/2024 07:08:04 11/20/19 24 11/20/2023 XR, chest , 2 view No observ ation record ed. [address] [facility] [address] [place] [address] [address], [place], [address], 11/27/2023 12:07:11 02/27/20 24 02/17/2024 PFT, compl ete No observ ation record ed. [facility] Not Available 2023 15:02:07 08/02/20 24 08/02/2024 XR, chest , 2 view No observ ation record ed. [address], [place], [address], 08/02/2024 12:44:04 08/13/19 25 08/13/2024 XR, chest , 2 view No observ ation record ed. [place] [address], [place], [address], 08/13/2024 14:01:09 09/27/19 25 09/26/2024 CT, neck, soft tissu e, w/ contr ast No observ ation record ed. [email or web address] [address], [place], [address], 09/28/2024 14:26:14 10/06/19 25 10/05/2024 XR, chest , 2 view No observ ation record ed. [email or web address] [facility] [address] [facility] [address], [place], [address], 10/06/2024 14:44:39 Result Notes None recorded. Problems Name Problem SNOMED Code Status Onset Date Resolution Date Notes Provider Name and Address Organization Details Recorded Time Obesity 388978744 Active 2023 NOLAN Conner Attn: Accountin g,[address] [facility], [place], [address], [place] [facility] 4 15:41:47 Benign essential hypertension 5831879 Active 2023 NOLAN Conner Attn: Accountin g,[address] [facility], [place], [address], [place] [facility] 4 21:40:31 Depressive disorder 28667182 Active 2023 NOLAN Conner Attn: Accountin g,[address] [facility], [place], [address], [place] [facility] 4 21:40:34 History of anemia 516568566 Active 2023 NOLAN Conner Attn: Accountin g,[address] , [place], [address], [place] [facility] 4 21:40:36 Long-term drug therapy Active 2023 NOLAN Conner Attn: Accountin g,[address] [facility], [place], [address], [place] [facility] 4 21:40:37 Body mass index 30+ - obesity 190909564 Active 2023 NOLAN Conner Attn: Danny vivar,[address], [place], [address], [place] [facility] 4 21:40:42 Hyperlipidemia 39915165 Active 2023 NOLAN Conner Attn: Danny vivar,[address] [address], [place], [address], [facility] 4 16:48:01 Type 2 diabetes mellitus 56745363 Active 2024 NOLAN Conner Attn: Danny vivar,[address], [place], [address], [facility] - [facility] 5 13:24:11 Problem Notes None recorded. Procedures Surgical History Date Name Laterality Status Provider Name and Address Organization Details Recorded Time excision of bilateral fallopian tubes and ovaries completed Lavonne Cardoza [place] [facility] 11/20/2023 17:23:19 Imaging Results Imaging Date Name Status LastModified by [email or web address] Details LastModified Time 11/20/2023 XR, chest, 2 view completed [address] [facility] [address] [place] [address] [address], [place], [address], 11/27/2023 12:07:11 02/17/2024 PFT, complete completed [facility] Information not available 02/27/2024 15:02:07 08/02/2024 XR, chest, 2 view completed [address] , [place], [address], 08/02/2024 12:44:04 08/13/2024 XR, chest, 2 view completed [address], [address], 08/13/2024 14:01:09 09/26/2024 CT, neck, soft tissue, w/ contrast completed [address], [address], 09/28/2024 14:26:14 10/05/2024 XR, chest, 2 view completed [email or web address] [facility] [address] [facility] [address], [place], [address], 10/06/2024 14:44:39 Procedure Notes None recorded. Medical Equipment None Reported. Allergies Allergen ID Allergen Name Allergen Category Reaction Reaction Severity Criticality Documentation Date Start Date Code Code System Note Provider Name and Address Organization Details Recorded Time 432267 Product containin g penicilli n (product) medicatio n Not available Not available Not available 11/20/2023 24814 8001 SNOMED Not Available Not Available Not Available [...] Not Available No t Available ciprofloxac in 500 mg tablet Take 1 tablet every 12 hours by oral route. 2024 active Not Available Not Available Not Avai lable alprazolam 0.25 mg tablet active Not Available Not Available Not Available cephalexin 500 mg capsule Take 1 capsule every 8 hours by oral route, for UTI persisten t. 2024 active Not Available Not Available Not Avai lable triamcinolo ne acetonide 55 mcg nasal spray [...] Updated DateTime 4 165.1 cm 38.6 kg/m2 272396. 43 g 20 /min 98 % 98 % 88 /min 132 mm[Hg] 82 mm[Hg] Lavonne Cardoza MA [facility] 15:11:51 Date Recorded Systolic blood pressure Diastolic blood pressure Provider Name and Address Organization Details Last Updated DateTime 11/20/2023 110 mm[Hg] 80 mm[Hg] NOLAN Conner Attn: Accounting,[address] [place], [address], [facility] 11/20/2023 15:48:43 Date Recorded Body height Body mass index (BMI) Body weight Respiratory rate Oxygen saturation Oxygen saturation in Arterial blood by Pulse oximetry Heart rate Systolic blood pressure Diastolic blood pressure Provider Name and Address Organization Details Last Updated DateTime 4 165.1 cm 38.8 kg/m2 570605. 02 g 20 /min 99 % 99 % 86 /min 126 mm[Hg] 82 mm[Hg] Lavonne Cardoza MA [facility] 12:41:14 Date Recorded Systolic blood pressure Diastolic blood pressure Provider Name and Address Organization Details Last Updated DateTime 04/09/2024 110 mm[Hg] 82 mm[Hg] NOLAN Conner Attn: Accounting,[address] [facility], [place], [address], [facility] 04/09/2024 12:52:51 Date Recorded Body height Respiratory rate Body mass index (BMI) Body weight Systolic blood pressure Diastolic blood pressure Provider Name and Address Organization Details Last Updated DateTime 4 165.1 cm 20 /min 38.3 kg/m2 272430. 25 g 116 mm[Hg] 62 mm[Hg] Lavonne Cardoza MA [facility] 4 09:24:26 Date Recorded Body height Body mass index (BMI) Body weight Oxygen saturation Oxygen saturation in Arterial blood by Pulse oximetry Heart rate Systolic blood pressure Diastolic blood pressure Provider Name and Address Organization Details Last Updated DateTime 4 165.1 cm 39.4 kg/m2 139461. 03 g 97 % 97 % 76 /min 126 mm[Hg] 82 mm[Hg] Deanna Reeves MA [facility] 4 16:44:13 Social History Question Answer Notes LastModified by Organizat ion Details LastModified Time Tobacco Smoking Status Former Smoker quit 22 years ago Lavonne Cardoza MA [facility], [facility] 11/20/2023 15:09:48 Do You Have An Advance [...] 06/01/2024 What Is Your Current Pack Years? [id number] rs Information not available 11/20/2023 What Is [...] Cholesterol N Liver Disease N Headaches N Kidney or Bladder Problems N Thyroid Problems N GI Problems N Skin Problems N Anemia N Heart Attack ([place]) N Diabetes N Seizures/Epilepsy N Asthma N Allergies N Hepatitis N Heart Failure N Osteoporosis N Gynecological History Statement/Question Response Menses Monthly N Current Control Method Menopause Obstetrics History GPAL:G 2 P 2 0 0 2 Type Value Full Term 2 Induced 0 Spontaneous 0 Premature 0 Living 2 Total 2 Past Encounters Encounter ID Performer Location Encounter Start Date Encounter Closed Date Diagnosis/Indication Diagnosis SNOMED-CT Code Diagnosis ICD10 Code Diagnosis Note [id number] NOLAN Conner [facility] [employer] [facility] [place] [address] [place] [address] 11/20/2023 14:58:42 11/20/2023 16:29:25 Cough 88080998 R05.9 check CXR and then start zpack and tussionex syrup as directed Weight gain 3034980 R63. 5 check fasting insulin lab with weight gain concerns. History of anemia 572549 002 Z86.2 hx of anemia reported. check cbc, b12, folate and iron studies. Long-term drug therapy 307863043 Z79.899 routine cmp lab ordered Benign ess ential hypertension 4921595 I10 very stable on lisinopril hctz 10/12.5mg daily. Depressive disorder 3548 9007 F32.A refill on sertraline 100mg two daily; and refill bupropion XL 300mg daily. stable on regimen. Cholesterol screening 27 1895498 Z13.220 fasting lipids ordered Prediabetes 056516569 R7 3.03 hx of prediabete s reported. screening a1c ordered. 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 [id number] NOLAN Conner [facility] [facility] [place] [address] [email or web address] [address] 04/09/2024 12:30:34 04/09/2024 12:59:06 Acute right otitis media 724320302 H66.91 Start cefdinir 300 mg twice daily x7 days [id number] NOLAN Conner [facility] [employer] [facility] [place] [address] [email or web address] [address] 05/07/2024 09:11:59 05/07/2024 10:26:37 Dysfunction of bilateral eustachian tubes 3779607479 093438 H69.93 Start Medrol Dosepak. Continue antihistam ine and nasal spray [id number] NOLAN Conner [facility] [employer] [facility] [place] [address] [email or web address] [address] 06/01/2024 16:38:39 06/01/2024 17:17:22 Benign essential hypertension 0060839 I10 very stable on lisinopril hctz 10/12.5mg daily. Medication refilled Prediabetes 482195869 R7 3.03 hx of prediabete s with A1c 6% asked reported. screening a1c ordered. Depressive disorder 8873 3297 F32.A refill on sertraline 100mg two daily; and decrease wellbutrin XL to 150mg daily, as she would to taper off. History of anemia 395706 002 Z86.2 hx of anemia reported. check cbc, b12, folate and iron studies. Long-term drug therapy 711361500 Z79.899 routine cmp lab ordered Obesity 195170061 E66.9 discussed healthy diet, exercise, controllin g carbohydra amanda and added sugars in the diet Body mass index 30+ - obesity 236932084 Z68.39 BMI is 39.4.. Check fasting insulin on labs. Patient would like to start zepbound injectable therapy. no personal or family hx of Medullary thyroid cancer or MEN conditions . Hyperlipidemia 86232067 E78.5 Fasting lipid panel ordered, history of hyperlipid emia with diet and exercise management Adult [facility] th examination 672605947 Z00.01 annual wellness completed Health Concerns Section Related Observation LastModified by Organization Detai ls LastModified Time None Recorded Concern Status LastModified by Organization Details LastModified Time None Recorded Advance Directives Directive N: Payers Encounter Date Sequence Insurance Name Policy Number Policy Figueroa Covered Member ID Figueroa Member ID Guarantor Name 11/20/2023 1 [employer] - CHOICE (POS II) [id number] Katie Jara [id number] Katie Greeneibaawa 04/09/2024 1 [place] [id number] Katie Jara [id number] Katie Greeneibal 05/07/2024 1 [place] [id number] Katie Reyesl [id number] Katie Greeneibal 06/01/2024 1 [place] [id number] Katie Jara [id number] Katie Jara Notes Date Note Type [...] hctz 10/12.5mg daily. NOLAN Conner Attn: Accounting,[address] [place], [address], [facility] 12/09/2023 21:40:48 04/09/2024 text/html Pt, states that she has been having some ear pain for about a week or so no drainage , states that she does have a sore throat starting today. There is no ear drainage and hearing is slightly muffled. There was no injury. 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 There is no ear drainage and hearing is slightly muffled. There was no injury. 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 no complaints.Hypert ensionReported bypatient.Notes:s table on medication lisinopril hctz 10/12.5mg daily. NOLAN Conner Attn: Accounting,[address] [place], [address], [facility] 06/14/2024 19:10:27 OBGyn Episode No OBEpisode recorded.
== END 2024-10-26 16:19 | disposition home or self-care (01) ==
PROVIDERS: Visit Provider Nurse Practitioner Family
DX: R05.3 Chronic cough (principal); R06.2 Wheezing
CPT/HCPCS: 71250

== ENCOUNTER 2024-11-11 14:17 | Outpatient (CLI) | payer BC, SELFPAY ==
--- NOTE | ~2024-11-11 | MM_ITS ---
EXAMINATION: MM screening evelia BI w thai HISTORY: Screening TECHNIQUE: Craniocaudal and mediolateral oblique 3-D tomosynthesis images were obtained and synthetic 2-D images were generated. CAD analysis was submitted and interpreted. COMPARISON: Comparison to multiple prior studies sequentially, with oldest reviewed study dated 02/2016. BREAST PARENCHYMAL COMPOSITION: Dense: The breasts are heterogeneously dense, which may obscure small masses FINDINGS: There is no evidence of suspicious mass, calcification, or architectural distortion to sugg est malignancy in either breast. There has been no suspicious interval change. IMPRESSION: 1. No mammographic evidence of malignancy. 2. Recommend routine screening mammography in one year. BI-RADS Category 1: Negative Reviewed, dictated and finalized at location A.
== END 2024-11-11 14:18 | disposition home or self-care (01) ==
LOC: MICIMG 14:17
PROVIDERS: PCP Obstetrics & Gynecology; Visit Provider Obstetrics & Gynecology
DX: Z12.31 Encounter for screening mammogram for malignant neoplasm of breast (principal)
CPT/HCPCS: 77063; 77067

== ENCOUNTER 2025-05-31 17:46 | Emergency (ER) | payer OTHER, SELFPAY ==
[2025-05-31 17:58] VITALS: BP 126/80; PULSE 77; RESP 16; TEMP 36.3; O2SAT 100
--- NOTE | 2025-05-31 17:59 | ED.GENADULT ---
HPI - General Adult General Chief complaint: Unspecified Stated complaint: Dizzy/Lips turned blue Time Seen by Provider: 05/31/25 18:19 Source: patient Mode of arrival: ambulatory Limitations: no limitations History of Present Illness HPI narrative: 50-year-old female presents with concern of for feeling having a blue lips earlier today. 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 She reports while she was there she felt slightly lightheaded. She reports she has also been feeling forgetful lately. She denies any thunderclap headache, denies any weakness in the extremity. She denies shortness of breath, cough, chest pain. She reports history of asthma for the last 2 years but she has not had any chest tightness or shortness of breath in the past few months. She denies general malaise Related Data Home Medications ?Medication ?Instructions ?Recorded ?Confirmed ?Last Taken ?Type multivitamin 1 tablet PO DAILY 08/03/19 05/31/25 Unknown History bupropion HCl 300 mg 24 hr tablet, 300 mg PO DAILY 02/06/24 05/31/25 Unknown History extended release meloxicam 15 mg tablet 15 mg PO DAILY 02/06/24 05/31/25 Unknown History famotidine 20 mg tablet 20 mg PO DAILY 01/12/25 05/31/25 Unknown History omeprazole 40 mg capsule,delayed 40 mg PO DAILY 01/12/25 05/31/25 Unknown History release Allergies Allergy/AdvReac Type Severity Reaction Status Date / Time No Known Allergies Allergy Verified 05/31/25 18:10 Review of Systems Review of Systems: CONSTITUTIONAL: Denies malaise, chills, sweats, or fever. Reports forgetfulness and lightheadedness EYES: Denies visual changes, redness, or discharge. ENT: Denies rhinorrhea, congestion, sinus pain, otalgia or sore throat. CARDIOVASCULAR: Denies chest pain, palpitations, or edema. RESPIRATORY: Denies cough or dyspnea. MUSCULOSKELETAL: Denies myalgia. NEUROLOGIC: Denies numbness, weakness. Reports mild headache. PSYCHIATRIC: Reports anxiety All systems reviewed & are unremarkable except as noted in HPI and below PMFSH Past Medical History Medical History Anxiety Alcohol abuse Hypertension Depression Hematochezia Surgical History Surgical History History of endometrial ablation Hx of tubal ligation Hx of foot surgery Right foot Family History Family History Father Family history of blood dyscrasia Hypertension Hyperlipidemia FH: prostate cancer Mother Hypertension Hyperthyroidism Social History Social History Smoking packs per day: 1 Smoking cigarettes per day: 20.0 Years smoked: 14 Smoking pack-years: 14.00 Smoking status: Former smoker Second hand tobacco smoke exposure: No Smoking end date: 08/12/02 Alcohol intake: current Alcohol use details: Pt drinks bi-weekly. 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 There is no relevant family history pertinent to the presenting complaint Exam Narrative: GENERAL: Well-appearing, well-nourished, and in no acute distress. HEAD: Normocephalic, atraumatic. EYES: PERRLA, sclera clear, and EOMI. No nystagmus. ENT: Nares clear, turbinates pink, no rhinorrhea or epistaxis. Mucous membranes moist. TM pearly schwab with sharp light reflex bilaterally; no tragal tenderness. Oropharynx without erythema or lesions. Tonsils not enlarged and without exudate. NECK: Supple. No lymphadenopathy. CHEST: No respiratory distress. Clear to auscultation. No bony deformities, no asymmetry. Speaks in full sentences. HEART: Regular rate and rhythm. No murmur heard. Normal peripheral pulses. ABDOMEN: Soft, nontender, nondistended, normal active bowel sounds, no palpable masses. EXTREMITIES: Normal range of motion. No edema. Normal strength and sensation. SKIN: Warm, dry, no visible rash. NEURO: Alert and oriented x3. No focal deficits. Cranial nerves II through XII grossly intact PSYCH: Normal mood and affect Course Course Emergency Course: Patient is aware of diagnosis, understands and agrees to treatment plan. Anticipatory guidance given. Patient agrees to follow-up as directed and is aware of reasons to seek care at the emergency department. Portions of this record may have been created with voice recognition software Level of Care: Express Care Visit Vital Signs Vital signs: Vital Signs Temperature 97.4 F L 05/31/25 17:58 Pulse Rate 77 05/31/25 17:58 Respiratory Rate 16 05/31/25 17:58 Blood Pressure 126/80 05/31/25 17:58 Pulse Oximetry 100 05/31/25 17:58 Temperature 97.4 F L 05/31/25 17:58 Pulse Rate 77 05/31/25 17:58 Respiratory Rate 16 05/31/25 17:58 Blood Pressure 126/80 05/31/25 17:58 Pulse Oximetry 100 05/31/25 17:58 Reviewed. Medical Decision Making MDM Narrative Medical decision making narrative: The patient was evaluated by myself in the [facility]. History is obtained from patient who is an independent historian and physical exam was performed.? Available medical records were reviewed at this time. ? Exam findings show no acute concerns or changes; patient is non-toxic appearing and is in no distress. Patient is appropriate for outpatient treatment and follow-up. ? I have evaluated and discussed social determinants of health with the patient that could potentially impact subsequent diagnosis and treatment plans. Patient's vital signs and exam are unremarkable. Patient's EKG is unremarkable, COVID and flu tests are negative. Patient is not currently having any active symptoms. I advised patient to go to the emergency room if she has any urgent concerns and follow-up with the primary doctor for further evaluation. ? Differential diagnosis and treatment plan were discussed with the patient. Patient agrees with discussion and after shared medical decision making agrees with plan of care. All questions were answered to the patient's satisfaction. Vital Signs Vital Signs: Vital Signs Temperature 97.4 F L 05/31/25 17:58 Pulse Rate 77 05/31/25 17:58 Respiratory Rate 16 05/31/25 17:58 Blood Pressure 126/80 05/31/25 17:58 Pulse Oximetry 100 05/31/25 17:58 Temperature 97.4 F L 05/31/25 17:58 Pulse Rate 77 05/31/25 17:58 Respiratory Rate 16 05/31/25 17:58 Blood Pressure 126/80 05/31/25 17:58 Pulse Oximetry 100 05/31/25 17:58 ECG Data EKG #1: ECG completion date: 05/31/25 ECG completion time: 18:43 Prior ECG tracings: available for review Interpretation: Rate 70, NH interval 176, QRS duration 86 EKG Interpretation: normal rate and sinus rhythm Critical Care Time Critical Care Time Critical Care Time: No Discharge Plan Discharge Clinical Impression: Normal exam Patient Disposition: Home Condition: Stable Instructions: Normal Exam (ED) Additional Instructions: 1) Please follow-up with your primary care doctor in the next 1-2 days. 2) If you have any urgent concerns please go to the ER. 3) Please continue taking your home medications as usual. Patient Language: Azerbaijani Prescriptions: No Action multivitamin Tablet 1 tablet PO DAILY albuterol sulfate 2.5 mg /3 mL (0.083 %) solution for nebulization 2.5 mg inhalation Q6H PRN (Reason: shortness of breath or wheezing) Qty: 360 1RF bupropion HCl 300 mg tablet extended release 24 hr 300 mg PO DAILY meloxicam 15 mg tablet 15 mg PO DAILY famotidine 20 mg tablet 20 mg PO DAILY omeprazole 40 mg capsule,delayed release(DR/EC) 40 mg PO DAILY lisinopril-hydrochlorothiazide 10-12.5 mg tablet 1 tablet PO DAILY Qty: 90 0RF sertraline 100 mg tablet 200 mg PO DAILY Qty: 180 1RF albuterol sulfate 90 mcg/actuation HFA aerosol inhaler 1 - 2 inh inhalation Q4-6H PRN (Reason: shortness of breath or wheezing) 90 Days Qty: 25.5 1RF Trelegy Ellipta 200-62.5-25 mcg blister with device 1 inh inhalation Q24H Qty: 60 5RF Rx Instructions: rinse and spit Follow-up/Referrals: Catalina,DEVI Valero [Primary Care Provider, Unknown] Stand Alone Forms: Work/School Release IP Time of Disposition: 18:53
--- NOTE | 2025-05-31 18:30 | ECG_ITS ---
Test Date: 2025-05-31 18:43:48 Measurements Intervals [place] Rate: 70 P: 36 VT: 176 QRS: -27 QRSD: 86 T: 44 QT: 382 QTc: 413 Interpretive Statements SINUS RHYTHM DELAYED PRECORDIAL R/S TRANSITION CONSIDER INFERIOR INFARCT, AGE INDETERMINATE BASELINE ARTIFACT- I, II, III, AVR, AVL, AVF ABNORMAL ECG No previous ECG available for comparison Electronically Signed On 05-31-2025 19:43:34 CDT by Stanley Johnson D.O.
[2025-05-31 18:54] LABS: EDCOVIDSCREEN Negative (Negative); EDINFLUASCREEN Negative (Negative); EDINFLUBSCREEN Negative (Negative)
== END 2025-05-31 19:01 | disposition home or self-care (01) ==
PROVIDERS: Emergency Provider Nurse Practitioner; PCP Physician Assistant
DX: Z71.1 Person with feared health complaint in whom no diagnosis is made (principal); Z20.822 Contact with and (suspected) exposure to COVID-19; I10 Essential (primary) hypertension; F41.9 Anxiety disorder, unspecified; F32.A Depression, unspecified; Z87.891 Personal history of nicotine dependence
CPT/HCPCS: 87426; 87804; 93005; 99213; G0463